=== PATIENT | male | born 1940 | race Caucasian/White ===

== ENCOUNTER 2016-08-14 05:56 | Day surgery (SDC) | payer OTHER ==
[~2016-08-14] VITALS: Ht 182.9 cm; Wt 113.4 kg
[2016-08-14 07:24] VITALS: BP 171/77; PULSE 56; RESP 18; TEMP 98.7; O2SAT 97
[2016-08-14] MEDS ORDERED: AMLO10TA2 PO (07:33)
[2016-08-14] MEDS ORDERED: ZETI10TA5 PO (07:33)
[2016-08-14] MEDS ORDERED: ALLO100T PO (07:33)
[2016-08-14] MEDS ORDERED: HYDR25TA5 PO (07:33)
[2016-08-14] MEDS ORDERED: ZOCO40TA PO (07:33)
[2016-08-14] MEDS ORDERED: METO100T9 PO (07:33)
[2016-08-14] MEDS ORDERED: ASPI81TA11 PO (07:33)
[2016-08-14] MEDS ORDERED: NATT100C PO (07:33)
[2016-08-14] MEDS ORDERED: METF500T PO (07:33)
[2016-08-14] MEDS ORDERED: VALS1TAB70 PO (07:33)
[2016-08-14] MEDS ORDERED: NITROGLYCERIN INJ 5 ML ONE ×2 (08:41→10:17)
[2016-08-14] MEDS ORDERED: MIDAZOLAM HCL 5 MG/5 ML VIAL ONE ×3 (08:41→10:17)
[2016-08-14] MEDS ORDERED: HEPARIN SODIUM - IV 10,000 UNITS/10 ML VIAL ONE ×2 (08:41→10:17)
[2016-08-14] MEDS ORDERED: HEPARIN-NS/PF INJ 500 ML ONE (08:41)
[2016-08-14] MEDS ORDERED: hydrALAZINE HCL 20 MG/ML VIAL ONE (10:41)
[2016-08-14] MEDS ORDERED: SODIUM CHLOR 0.9% 1000 ML INJ 1,000 ML IV SCH (10:52)
[2016-08-14] MEDS ORDERED: PLAV75TA29 PO (10:56)
[2016-08-14] MEDS ORDERED: LORazepam 2 MG/ML VIAL IV PRN (11:00)
[2016-08-14] MEDS ORDERED: ACETAMINOPHEN 325 MG TAB PO PRN (11:00)
[2016-08-14] MEDS ORDERED: ONDANSETRON HCL 4 MG/2 ML VIAL IV PRN (11:00)
[2016-08-14] MEDS ORDERED: ATROPINE SULFATE 1 MG/ML VIAL IV PRN (11:00)
[2016-08-14] MEDS ORDERED: TEMAZEPAM 15 MG CAP PO PRN (11:00)
[2016-08-14] MEDS ORDERED: LIDOCAINE HCL 1% 50 ML VIAL INFIL PRN (11:00)
[2016-08-14] MEDS ORDERED: MISC INFORMATION XX ONE (11:00)
[2016-08-14] MEDS ORDERED: oxyCODONE/ACETAMINOPHEN 5 MG/325 MG TAB PO PRN (11:00)
[2016-08-14] MEDS ORDERED: CLOPIDOGREL 300 MG TAB PO ONE (11:00)
[2016-08-14] MEDS ORDERED: BACITRACIN OINT 0.9 GM PKT TOP ONE (11:00)
[2016-08-14] MEDS ORDERED: MORPHINE SULFATE 4 MG/ML INJ IV PUSH PRN (11:00)
[2016-08-14] MEDS ORDERED: oxyCODONE/ACETAMINOPHEN 10 MG/325 MG TAB PO PRN (11:00)
[2016-08-14] MEDS ORDERED: SODIUM CHLOR 0.9% 250 ML INJ 250 ML IV PRN (11:00)
[2016-08-14] MEDS ORDERED: METOCLOPRAMIDE HCL 10 MG/2 ML VIAL IV PRN (11:00)
[2016-08-14] MEDS ORDERED: CLON0.2T PO (11:18)
[2016-08-14] MEDS ORDERED: cloNIDine HCL 0.2 MG TAB PO PRN (11:30)
[2016-08-14] MEDS ORDERED: hydrALAZINE HCL 20 MG/ML VIAL IV PUSH PRN (11:30)
--- NOTE | 2016-08-14 12:11 | MA ---
cc: LEANDRO EPPS DATE 08/14/2016 PROCEDURES PERFORMED 1. Fluoroscopy with interpretation. 2. Descending aortography. 3. Bilateral lower extremity peripheral angiography with first, second and third order visualization/interpretation. 4. Percutaneous transluminal angioplasty with drug-coated balloon of the right posterior tibial artery. 5. Orbital rotational atherectomy, balloon angioplasty and endovascular stenting of the right superficial femoral artery. 6. Percutaneous endovascular stenting of the right common iliac artery. METHOD The risks, benefits and alternatives were discussed with the patient. The patient understood and consented. PROCEDURE The patient was brought to the Cardiac Catheterization Lab, placed on the catheterization table. The right left groin was prepped and draped in sterile fashion. The left groin was anesthetized with 2% lidocaine. Left common femoral is cannulated and a 5-Turkmen, 11-cm sheath was placed without difficulty. DESCENDING AORTOGRAPHY Descending arteriography was performed anterior-posterior view using a 24 cc contrast injection with good opacification. Descending aortography revealed mild infrarenal descending aortic atherosclerosis. The left renal artery appeared to be patent. The right renal artery has an 80% proximal stenosis. PERIPHERAL ANGIOGRAPHY 1. The right common iliac artery has severe stenosis proximally at 95%. There is a 100 mmHg translational gradient. The right common iliac artery also has mild to moderate diffuse disease. The right external iliac artery is tortuous, has minor luminal irregularities. Right common femoral has minor luminal irregularities. Right profunda appears to be patent. The right superficial femoral artery proximally has some mild to moderate eccentric calcific plaque. The right mid to distal superficial femoral artery has 75% calcific stenosis. There is a discrete stenosis in the distal superficial femoral artery of about 85%. The popliteal artery has minor luminal irregularities. There is primary single-vessel runoff to the right lower extremity. The proximal posterior tibial artery has a 90% discrete stenosis. The peroneal vessel is patent proximally but occluded in the mid-segment. The anterior tibial is occluded proximally. The foot is fed primarily by the posterior tibial as there is little collateralization of the dorsalis pedis. 2. The left common iliac artery has minor luminal irregularities. Left internal iliac artery is occluded. Left external iliac artery has minor luminal irregularities. The left common femoral artery and profunda arteries have minor luminal irregularities. The left superficial femoral artery has mild luminal irregularities in the proximal segment. In the mid segment there is an 80% calcific stenosis. The popliteal artery has minor luminal irregularities. The posterior tibial has 30% proximal stenosis. The peroneal vessel is patent. The anterior tibial is occluded and collateralized distally. PERCUTANEOUS INTERVENTION Omniflex catheter was selectively engaged in the right common iliac artery. A 0.035-inch, 260-cm stiff angle Glidewire was navigated down to the superficial femoral artery. A 6-Turkmen, 45-cm Terumo Destination Morris sheath was advanced up-and-over the arch into the superficial femoral artery. A 0.035-inch Glidewire was navigated behind the Trailblazer catheter into the popliteal artery. Selective distal subtraction angiography confirmed intraluminal placement. The wire was carefully guided down the posterior tibial artery, the Trailblazer catheter behind it and the wire was moved. A 0.014-inch, 335-cm Viper wire was navigated down to the distal posterior tibial artery and the Trailblazer catheter removed. A 4.0 x 40-mm drug-coated Bard balloon was advanced down to the proximal posterior tibial artery and deployed. This is to ensure adequate runoff for anticipated atherectomy of the superficial femoral artery. A 2.0-mm CSI atherectomy catheter was then prepped and advanced up-and-over the arch. Orbital rotational atherectomy of the right superficial femoral artery was performed on four sequential passes through the mid and distal segment. The superficial femoral area was then dilated with a 6.0 x 50-mm Cordis Saber balloon on two sequential inflations. Repeat angiography still showed severe residual stenosis. There was some vessel spasm of the posterior tibial artery which improved with nitroglycerin. A 6.0 x 150-mm Bard drug-coated balloon was then advanced down to the mid-distal superficial femoral artery and deployed. Repeat angiography still showed residual stenosis in the mid-segment. We elected to proceed with endovascular stenting of a 7.0 x 80-mm Bard self-expanding stent which was postdilated with the 6.0 balloon. Repeat angiography showed no significant residual stenosis, JOSÉ LUIS-3 flow. Attention was then directed towards the right common iliac artery. Access was obtained in the right common femoral artery. A 6-Turkmen, 23-cm Brite-Tip sheath was then advanced to the midsegment of the right common iliac artery. The 6-Turkmen, 45-cm Terumo sheath was then pulled back to the left common iliac artery. At this point two wires were in the descending aorta to protect both common iliac arteries. The right common iliac artery was then predilated with an 8.0 x 20-mm Medtronic balloon. Repeat angiography showed some residual stenosis but JOSÉ LUIS-3 flow. A 10.0 x 30-mm balloon expandable stent was then deployed at the proximal right common iliac artery with careful attention paid not to extend it into the aorta and cover the bifurcation. Repeat angiography showed no residual stenosis. There was no further gradient of the right common iliac artery. Both sheaths were then exchanged for 6-Turkmen, 11-cm sheaths, sewn into place to be removed with manual hemostasis. Heparin was administered throughout the entire procedure to maintain appropriate anticoagulation. CONCLUSIONS 1. Mild infrarenal descending aortic atherosclerosis. 2. Severe right renal artery stenosis. 3. Severe right common iliac artery stenosis. 4. Severe bilateral superficial femoral and infrapopliteal stenosis. 5. Successful orbital rotational atherectomy, balloon angioplasty, endovascular stenting of the right superficial femoral artery. 6. Successful percutaneous transluminal angioplasty drug-coated balloon of the right posterior tibial artery. 7. Successful endovascular stenting with balloon expandable stent of the right common iliac artery. PLAN The patient will be initiated on Plavix and continued on aggressive medical therapy. Hopefully this will translate well to symptomatic improvement in the right lower extremity. We will see how he does clinically. After full recovery we will plan for staged left superficial femoral artery intervention. MD NATALYA Manzano/ELIEZER /11:00 AM /11:54 AM
[2016-08-14] MEDS ORDERED: IOHEXOL 350 MG/ML 100 ML BTL (for Cath Lab) OTHER ONE (12:16)
[2016-08-15] MEDS ORDERED: CLOPIDOGREL 75 MG TAB PO SCH (09:00)
[2016-08-15] MEDS ORDERED: ASPIRIN 81 MG CHEW TAB PO SCH (09:00)
== END 2016-08-14 19:42 | disposition home or self-care (01) ==
LOC: HDOC 05:56 → HDIC 05:56 → HDOC 19:42
PROVIDERS: ATTEND Internal Medicine
DX: I70.211 Atherosclerosis of native arteries of extremities with intermittent claudication, right leg (principal); I70.0 Atherosclerosis of aorta; I70.1 Atherosclerosis of renal artery; I10 Essential (primary) hypertension; I25.10 Atherosclerotic heart disease of native coronary artery without angina pectoris; Z95.5 Presence of coronary angioplasty implant and graft; Z79.01 Long term (current) use of anticoagulants
CPT/HCPCS: 37221; 37225; 37228; 75625; 75716; 85002; 85347; 86850; 86900; 86901; C1714; C1725; C1751; C1769; C1876; C1893; C2623; J0360; J1644; J2250; J3010; Q9967

== ENCOUNTER 2017-05-18 11:10 | Emergency (ER) | payer OTHER ==
[~2017-05-18] VITALS: Ht 182.9 cm; Wt 98.5 kg
[~2017-05-18 11:10] MED LIST: ALLO100T PO; AMLO10TA2 PO; ASPI81TA23 PO; CLON0.2T PO; EZET10 PO; HYDR25TA5 PO; METO1TAB43 PO; NATT100C PO; PLAV75TA29 PO; VALS1TAB70 PO; ZOCO40TA PO
[2017-05-18 11:16] VITALS: BP 132/64; PULSE 83; RESP 18; TEMP 98.1; O2SAT 95
[2017-05-18] MEDS ORDERED: SODIUM CHLOR 0.9% 1000 ML INJ 1,000 ML IV SCH (11:21)
[2017-05-18] MEDS ORDERED: SODIUM CHLORIDE 0.9% FLUSH 10 ML FLUSH IV FLUSH PRN (11:30)
--- NOTE | 2017-05-18 11:31 | PD ---
HPI Chief Complaint: altered mental status Time Seen by Provider: 11:12 Travel History International Travel<30 days: No Contact w/Intl Traveler<30days: No Traveled to known affect area: No History of Present Illness HPI The patient is a 76-year-old male who presents to the emergency department via EMS for altered mental status and possible UTI. EMS states the patient recently had a long hospitalization at [facility] where he underwent a CABG and then apparently had a stroke after the CABG. The patient has been at home for last several weeks, was taken an antibiotic for a possible urinary tract infection. EMS states he received a phone call earlier today from the family who requested that the patient come to the emergency department for evaluation of altered mental status. The patient states he does not want to be in the hospital, states that his kids made him come to the hospital. He denies any headache, chest pain, shortness of breath, nausea, vomiting, diarrhea, abdominal pain, or dysuria. He denies any change in mental status, states he has trouble remembering the current date and year because of his prolonged hospitalization. He was able to tell me the correct month, but cannot tell me the year. He denies any complaints. EMS states the patient was afebrile. EMS also states the patient is on oxygen at home, was on 5 L prior to arrival. The patient cannot recall why he takes oxygen. PFSH Past Medical History Cancer: No Chest Pain: No Diabetes: Yes Gastrointestinal Disorders: No Glaucoma: No Hepatitis: No Hiatal Hernia: Yes Hypertension: Yes Integumentary: No Thyroid Disease: No Past Surgical History Narrative Surgical CABG Social History Tobacco Use: No Allergies-Medications (Allergen,Severity, Reaction): Coded Allergies: Sulfa (Sulfonamide Antibiotics) (Unverified Allergy, Severe, 12/30/16) Reported Meds & Prescriptions Reported Meds & Active Scripts Active Reported Famotidine 20 Mg Tab 20 Mg PO DAILY Tamsulosin (Tamsulosin HCl) 0.4 Mg Cap 0.4 Mg PO HS Warfarin 3 Mg Tab 3 Mg PO DAILY Ventolin Hfa 18 GM Inh (Albuterol Sulfate) 90 Mcg/Act Aer 1 Puff INH Q4H PRN Spironolactone 25 Mg Tab 12.5 Mg PO DAILY Basaglar Kwikpen (Insulin Glargine) 100 Unit/Ml Pen 1 Units SQ DAILY Digoxin 0.125 Mg Tab 0.125 Mg PO DAILY Furosemide 40 Mg Tab 40 Mg PO DAILY Cardizem (Diltiazem HCl) 60 Mg Tab 90 Mg PO QID Metoprolol Succinate ER 24 HR (Metoprolol Succinate) 100 Mg Tab 100 Mg PO DAILY Allopurinol 100 Mg Tab 100 Mg PO DAILY Zocor (Simvastatin) 40 Mg Tab 40 Mg PO DAILY Aspirin EC (Aspirin) 81 Mg Tabdr 81 Mg PO DAILY Review of Systems Except as stated in HPI: all other systems reviewed are Neg General / Constitutional: No: Fever, Chills HENT: No: Lightheadedness Cardiovascular: No: Chest Pain or Discomfort Respiratory: No: Shortness of Breath Gastrointestinal: No: Nausea, Vomiting, Diarrhea, Abdominal Pain Genitourinary: No: Dysuria Musculoskeletal: No: Weakness Neurologic: Positive: Change in Mentation Physical Exam Narrative GENERAL: Awake, alert, pleasant 76-year-old male who appears his stated age and is in no acute respiratory distress. SKIN: Focused skin assessment warm/dry. HEAD: Atraumatic. Normocephalic. EYES: Pupils equal and round. No scleral icterus. No injection or drainage. ENT: No nasal bleeding or discharge. Mucous membranes pink and moist. NECK: Trachea midline. No JVD. CARDIOVASCULAR: Regular rate and rhythm. No murmur appreciated. RESPIRATORY: No accessory muscle use. Clear to auscultation. Breath sounds equal bilaterally. GASTROINTESTINAL: Abdomen soft, non-tender, nondistended. No rebound tenderness. Back: Stage II sacral decubitus ulcer. MUSCULOSKELETAL: No obvious deformities. No clubbing. No cyanosis. No edema. NEUROLOGICAL: Awake and alert. No obvious cranial nerve deficits. Motor grossly within normal limits. Normal speech. Patient is oriented to person and month but not the correct year. PSYCHIATRIC: Appropriate mood and affect; insight and judgment normal. Data Data Last Documented VS Vital Signs Date Time Temp Pulse Resp B/P (MAP) Pulse Ox O2 Delivery O2 Flow Rate FiO2 05/18/17 15:00 77 16 142/65 (90) 94 Nasal Cannula 3.00 05/18/17 11:16 98.1 Orders Orders Electrocardiogram (05/18/17 11:21) Complete Blood Count With Diff (05/18/17 11:21) Comprehensive Metabolic Panel (05/18/17 11:21) Creatine Kinase (Cpk) (05/18/17 11:21) Prothrombin Time / Inr (Pt) (05/18/17 11:21) Act Partial Throm Time (Ptt) (05/18/17 11:21) Urinalysis - C+S If Indicated (05/18/17 11:21) Lactic Acid Sepsis Protocol (05/18/17 11:21) Blood Culture (05/18/17 11:21) Chest, Single Ap (05/18/17 11:21) Blood Glucose (05/18/17 11:21) Ecg Monitoring (05/18/17 11:21) Iv Access Insert/Monitor (05/18/17 11:21) Cath For Specimen (05/18/17 11:21) Oximetry (05/18/17 11:21) Sodium Chloride 0.9% Flush (Ns Flush) (05/18/17 11:30) Sodium Chlor 0.9% 1000 Ml Inj (Ns 1000 M (05/18/17 11:21) Influenzae A/B Antigen (05/18/17 11:21) Ct Brain W/O Iv Contrast(Rout) (05/18/17 ) Digoxin (05/18/17 11:59) B-Type Natriuretic Peptide (05/18/17 12:02) Furosemide Inj (Lasix Inj) (05/18/17 12:15) Consult Pt Eval & Treat (05/18/17 13:26) (Hub Use Only)Inp Phy Cons/Ref (05/18/17 ) Ed Discharge Order (05/18/17 16:34) Labs Laboratory Tests Test 05/18/17 11:22 05/18/17 12:10 White Blood Count 12.8 TH/MM3 Red Blood Count 3.55 MIL/MM3 Hemoglobin 8.9 GM/DL Hematocrit 28.2 % Mean Corpuscular Volume 79.4 FL Mean Corpuscular Hemoglobin 25.2 PG Mean Corpuscular Hemoglobin Concent 31.7 % Red Cell Distribution Width 18.9 % Platelet Count 344 TH/MM3 Mean Platelet Volume 7.0 FL Neutrophils (%) (Auto) 56.5 % Lymphocytes (%) (Auto) 29.1 % Monocytes (%) (Auto) 12.0 % Eosinophils (%) (Auto) 2.2 % Basophils (%) (Auto) 0.2 % Neutrophils # (Auto) 7.2 TH/MM3 Lymphocytes # (Auto) 3.7 TH/MM3 Monocytes # (Auto) 1.5 TH/MM3 Eosinophils # (Auto) 0.3 TH/MM3 Basophils # (Auto) 0.0 TH/MM3 CBC Comment DIFF FINAL Differential Comment Prothrombin Time 31.6 SEC Prothromb Time International Ratio 3.1 RATIO Activated Partial Thromboplast Time 50.3 SEC Blood Urea Nitrogen 21 MG/DL Creatinine 2.15 MG/DL Random Glucose 132 MG/DL Total Protein 6.5 GM/DL Albumin 2.4 GM/DL Calcium Level 8.6 MG/DL Alkaline Phosphatase 90 U/L Aspartate Amino Transf (AST/SGOT) 11 U/L Alanine Aminotransferase (ALT/SGPT) 13 U/L Total Bilirubin 0.3 MG/DL Sodium Level 138 MEQ/L Potassium Level 4.4 MEQ/L Chloride Level 102 MEQ/L Carbon Dioxide Level 29.0 MEQ/L Anion Gap 7 MEQ/L Estimat Glomerular Filtration Rate 30 ML/MIN Lactic Acid Level 1.7 mmol/L Total Creatine Kinase 88 U/L B-Type Natriuretic Peptide 314 PG/ML Digoxin Level 1.9 NG/ML Urine Color YELLOW Urine Turbidity CLEAR Urine pH 7.0 Urine Specific [place] 1.011 Urine Protein NEG mg/dL Urine Glucose (UA) NEG mg/dL Urine Ketones NEG mg/dL Urine Occult Blood NEG Urine Nitrite NEG Urine Bilirubin NEG Urine Urobilinogen LESS THAN 2.0 MG/DL Urine Leukocyte Esterase NEG Urine RBC LESS THAN 1 /hpf Urine WBC LESS THAN 1 /hpf Urine Hyaline Casts 4 /lpf Urine Mucus FEW /lpf Microscopic Urinalysis Comment CATH-CULT NOT IND MDM Medical Decision Making Medical Screen Exam Complete: Yes Emergency Medical Condition: Yes Medical Record Reviewed: Yes Interpretation(s) EKG reveals atrial fibrillation with a rate of 82. Intraventricular conduction delay with QRS of 135 ms. Chest x-ray reveals borderline cardiomegaly with diffuse increased interstitial markings concerning for pulmonary venous hypertension or mild edema. Some degree of right pleural effusion also needs to be considered. Laboratory Tests Test 05/18/17 11:22 White Blood Count 12.8 TH/MM3 Red Blood Count 3.55 MIL/MM3 Hemoglobin 8.9 GM/DL Hematocrit 28.2 % Mean Corpuscular Volume 79.4 FL Mean Corpuscular Hemoglobin 25.2 PG Mean Corpuscular Hemoglobin Concent 31.7 % Red Cell Distribution Width 18.9 % Platelet Count 344 TH/MM3 Mean Platelet Volume 7.0 FL Neutrophils (%) (Auto) 56.5 % Lymphocytes (%) (Auto) 29.1 % Monocytes (%) (Auto) 12.0 % Eosinophils (%) (Auto) 2.2 % Basophils (%) (Auto) 0.2 % Neutrophils # (Auto) 7.2 TH/MM3 Lymphocytes # (Auto) 3.7 TH/MM3 Monocytes # (Auto) 1.5 TH/MM3 Eosinophils # (Auto) 0.3 TH/MM3 Basophils # (Auto) 0.0 TH/MM3 CBC Comment DIFF FINAL Differential Comment Prothrombin Time 31.6 SEC Prothromb Time International Ratio 3.1 RATIO Activated Partial Thromboplast Time 50.3 SEC Blood Urea Nitrogen 21 MG/DL Creatinine 2.15 MG/DL Random Glucose 132 MG/DL Total Protein 6.5 GM/DL Albumin 2.4 GM/DL Calcium Level 8.6 MG/DL Alkaline Phosphatase 90 U/L Aspartate Amino Transf (AST/SGOT) 11 U/L Alanine Aminotransferase (ALT/SGPT) 13 U/L Total Bilirubin 0.3 MG/DL Sodium Level 138 MEQ/L Potassium Level 4.4 MEQ/L Chloride Level 102 MEQ/L Carbon Dioxide Level 29.0 MEQ/L Anion Gap 7 MEQ/L Estimat Glomerular Filtration Rate 30 ML/MIN Lactic Acid Level 1.7 mmol/L Total Creatine Kinase 88 U/L Last Impressions Chest X-Ray 05/18/17 1121 Signed Impressions: Service Date/Time: Thursday, May 18, 2017 11:36 - CONCLUSION: Borderline cardiomegaly with diffuse increased interstitial markings concerning for pulmonary venous hypertension or mild edema. Some degree of right pleural effusion also needs to be considered. Mc Shahid MD Head CT 05/18/17 0000 Signed Impressions: Service Date/Time: Thursday, May 18, 2017 13:21 - CONCLUSION: 1. No acute abnormality seen. 2. Age-related atrophy. 3. Small area of encephalomalacia at the left frontal white matter likely from prior infarction. 4. Mild right maxillary and right ethmoid sinus disease. Mc Shahid MD Differential Diagnosis Differential diagnosis includes UTI, delirium, pneumonia, influenza, hyponatremia, dehydration, dementia. Narrative Course IV was established, labs are drawn and sent, and the patient was placed on cardiac telemetry monitoring and continuous pulse oximetry monitoring. EKG was ordered and interpreted. Chest x-ray was obtained. Chest x-ray reveals diffuse increased interstitial markings concerning for pulmonary venous hypertension or mild edema. Creatinine is elevated at 2.15. White count is mildly elevated, patient was afebrile in the emergency department. BNP and digoxin level were added once I looked at the patient's medication list that was brought by his daughter. The daughter is concerned that the patient is not getting the care he needs at home. He was recently discharged home, at home health care coming intermittently, but they have not been there since last week. The patient apparently was hypoxic last night and the brother turned the oxygen level up to 10 L. The patient also apparently fell 3 days ago and was found lying on the ground, unknown length of time. The daughter thinks the patient may benefit from retirement facility in rehabilitation. The patient does live alone, there are no family members there [address] the brain was negative, no subdural hemorrhage. I had a discussion with the daughter who thinks the patient needs retirement facility. I had a discussion with case management who recommends an urgent PTT valve replacement. Therefore, urgent request for PT eval was placed. The human services case manager didn't discussed the possibilities with the daughter and patient at bedside. The daughter does not want the patient to go to in a manner. The daughter would like to go to [facility] and rehabilitation, however, they are apparently out of network. The daughter would like the patient to stay overnight to see if the patient would be a candidate for [facility] tomorrow, [facility] admissions is currently closed secondary to the holiday. Therefore, a call was placed to the on-call [facility] physician for 23 hour observation so case management can evaluate the patient for possible [facility] rehabilitation tomorrow. I discussed the patient with Dr. Castillo who states the patient will not May 23 hour observation criteria, there best option would be to follow- up with [facility] case management tomorrow as well as proximal for possible placement. I will make sure that the daughter and patient have a copy of the physical therapy evaluation at discharge. Physician Communication Physician Communication The on-call [facility] physician was paged for 23 hour observation. Diagnosis Primary Impression: Physical debility Additional Impression: Physical deconditioning Patient Instructions: General Instructions Additional Instructions: Please provide the patient and the daughter a copy of the physical therapy evaluation, CT results, lab results, and x-ray results at discharge. Follow-up with [facility] case management tomorrow morning as well as [facility]. Return if symptoms worsen or progress. Med/Other Pt SpecificInfo: No Change to Meds Disposition: 01 DISCHARGE HOME Condition: Stable Cody Stauffer MD May 18, 2017 11:31
[2017-05-18 11:39] LABS: AUTOMATED NEUTROPHIL # 7.2 TH/MM3 (1.8-7.7); BASOPHIL % 0.2 % (0.0-2.0); EOSINOPHIL # 0.3 TH/MM3 (0-0.4); EOSINOPHIL % 2.2 % (0.0-4.0); HEMATOCRIT 28.2 % (39.0-51.0); HEMOGLOBIN 8.9 GM/DL (13.0-17.0); LYMPH % 29.1 % (9.0-44.0); LYMPHOCYTE # 3.7 TH/MM3 (1.0-4.8); MEAN CELL VOLUME 79.4 FL (80.0-100.0); MEAN CORPUSCULAR HEMOGLOBIN 25.2 PG (27.0-34.0); MEAN CORPUSCULAR HGB CONC 31.7 % (32.0-36.0); MONOCYTE # 1.5 TH/MM3 (0-0.9); NEUT % 56.5 % (16.0-70.0); PLATELET COUNT 344 TH/MM3 (150-450); RED BLOOD COUNT 3.55 MIL/MM3 (4.50-5.90); RED CELL DISTRIBUTION WIDTH 18.9 % (11.6-17.2); WHITE BLOOD COUNT 12.8 TH/MM3 (4.0-11.0)
[2017-05-18 11:49] LABS: INTERNATIONAL NORMALIZED RATIO 3.1 RATIO; PROTHROMBIN TIME - PATIENT 31.6 SEC (9.8-11.6)
[2017-05-18 11:56] LABS: ALBUMIN 2.4 GM/DL (3.4-5.0); ALT (GPT) 13 U/L (12-78); AST (GOT) 11 U/L (15-37); BLOOD UREA NITROGEN 21 MG/DL (7-18); CALCIUM 8.6 MG/DL (8.5-10.1); CHLORIDE 102 MEQ/L (98-107); CREATININE 2.15 MG/DL (0.60-1.30); GLOMERULAR FILTRATION RATE 30 ML/MIN (>89); GLUCOSE,RANDOM 132 MG/DL (74-106); SODIUM (NA) 138 MEQ/L (136-145)
[2017-05-18 11:58] LABS: ALKALINE PHOSPHATASE 90 U/L (45-117); TOTAL BILIRUBIN ADULT 0.3 MG/DL (0.2-1.0); TOTAL PROTEIN 6.5 GM/DL (6.4-8.2)
--- NOTE | 2017-05-18 12:02 | RADRPT ---
EXAM DATE/TIME: 05/18/2017 11:36 [facility] COMPARISON: No previous studies available for comparison. INDICATIONS : Fever. MEDICAL HISTORY : Hypertension. Diabetes mellitus type II. SURGICAL HISTORY : CABG. ENCOUNTER: Initial ACUITY: 1 day PAIN SCORE: 0/10 LOCATION: Bilateral chest FINDINGS: The patient is status post sternotomy. The heart size is borderline enlarged. There is diffuse increa sed interstitial markings. There is linear density at the right midlung which may relate to fluid or thickening of the minor fissure. There are some pleural thickening seen at the lateral aspect of the chest bilaterally. There is minimal blunting of the right costophrenic angle. CONCLUSION: Borderline cardiomegaly with diffuse increased interstitial markings concerning for pulmonary venous hypertension or mild edema. Some degree of right pleural effusion also needs to be considered. Mc Shahid MD on May 18, 2017 at 11:58 Board Certified Radiologist. This report was verified electronically.
[2017-05-18] MEDS ORDERED: FUROSEMIDE 40 MG/4 ML VIAL IV PUSH ONE (12:15)
[2017-05-18 12:24] LABS: BILIRUBIN, URINE NEG (NEG); BLOOD, URINE NEG (NEG); GLUCOSE,URINE NEG (NEG); HYALINE CAST, URINE 4 /lpf (RARE); KETONE, URINE NEG (NEG); MUCUS URINE FEW /lpf (OCC); NITRITE,URINE NEG (NEG); URINE COLOR YELLOW (YELLW/STRAW); URINE LEUKOCYTE ESTERASE NEG (NEG)
[2017-05-18 12:30] VITALS: BP 145/65; PULSE 94; RESP 18; O2SAT 94
[2017-05-18] MEDS ORDERED: FURO40TA PO ×2 (12:59)
[2017-05-18] MEDS ORDERED: DILT60TA33 PO (12:59)
[2017-05-18] MEDS ORDERED: FAMO20TA2 PO (13:02)
[2017-05-18] MEDS ORDERED: SPIR25TA PO (13:02)
[2017-05-18] MEDS ORDERED: TAMS0.4C4 PO (13:02)
[2017-05-18] MEDS ORDERED: WARF-58 PO (13:02)
[2017-05-18] MEDS ORDERED: VENTAER INH (13:02)
[2017-05-18] MEDS ORDERED: DIGO0.12 PO (13:02)
[2017-05-18] MEDS ORDERED: INSU1INJ18 SQ (13:02)
--- NOTE | 2017-05-18 13:40 | RADRPT ---
EXAM DATE/TIME: 05/18/2017 13:21 [facility] COMPARISON: No previous studies available for comparison. INDICATIONS : Altered mental status. RADIATION DOSE: 37.94 CTDIvol (mGy) MEDICAL HISTORY : Cardiovascular disease. Cerebrovascular disease. Hypertension.A-fib, diabetic SURGICAL HISTORY : None. ENCOUNTER: Initial ACUITY: 1 day PAIN SCALE: 0/10 LOCATION: cranial TECHNIQUE: Multiple contiguous axial images were obtained of the head. Using automated exposure control and adj ustment of the mA and/or kV according to patient size, radiation dose was kept as low as reasonably a chievable to obtain optimal diagnostic quality images. DICOM format image data is available electro nically for review and comparison. FINDINGS: CEREBRUM: The ventricles and cortical sulci are widened. There is a small area of encephalomalacia at the left frontal white matter. No evidence of midline shift, mass lesion, hemorrhage or acute infarction. No extra-axial fluid collections are seen. POSTERIOR FOSSA: The cerebellum and brainstem are intact. The 4th ventricle is midline. The cerebellopontine angle i s unremarkable. EXTRACRANIAL: The visualized portion of the orbits is intact. There is mild focal mucosal disease at the inferior l ateral right maxillary sinus and a few posterior right ethmoid air cells. SKULL: The calvaria is intact. No evidence of skull fracture. CONCLUSION: 1. No acute abnormality seen. 2. Age-related atrophy. 3. Small area of encephalomalacia at the left frontal white matter likely from prior infarction. 4. Mild right maxillary and right ethmoid sinus disease. Mc Shahid MD on May 18, 2017 at 13:36 Board Certified Radiologist. This report was verified electronically.
[2017-05-18 15:00] VITALS: BP 142/65; PULSE 77; RESP 16; O2SAT 94
[2017-05-18 18:20] VITALS: BP 139/70
--- NOTE | 2017-05-19 16:49 | EKG ---
Date Performed: 05/18/2017 Time Performed: 11:28:01 PTAGE: 76 years EKG: ATRIAL FIBRILLATION INTRAVENTRICULAR CONDUCTION DELAY POSSIBLE LEFT VENTRICULAR HYPERTROPHY ABNORMAL ECG INTERPRETATION BASED ON A DEFAULT AGE OF 40 YEARS NO PREVIOUS TRACING DOCTOR: Grayson Mendieta Interpretating Date/Time 05/19/2017 16:49:29
== END 2017-05-18 18:48 | disposition home or self-care (01) ==
LOC: NEPC 11:10
DX: R53.81 Other malaise (principal); R41.82 Altered mental status, unspecified; E11.9 Type 2 diabetes mellitus without complications; I10 Essential (primary) hypertension; I48.91 Unspecified atrial fibrillation
CPT/HCPCS: 70450; 71045; 80053; 80162; 81001; 82550; 83605; 83880; 85025; 85610; 85730; 87040; 87804; 93005; 96374; 97162; 99285; G8987; G8988; J1940; J7030

== ENCOUNTER 2017-05-20 16:42 | Inpatient (IN) | payer OTHER ==
[~2017-05-20] VITALS: Ht 185.4 cm; Wt 91.6 kg
[~2017-05-20 16:42] MED LIST changes: -AMLO10TA2 PO; -CLON0.2T PO; +DIGO0.12 PO; +DILT60TA33 PO; -EZET10 PO; +FAMO20TA2 PO; +FURO40TA PO; -HYDR25TA5 PO; +INSU1INJ18 SQ; -NATT100C PO; -PLAV75TA29 PO; +SPIR25TA PO; +TAMS0.4C4 PO; -VALS1TAB70 PO; +VENTAER INH; +WARF-58 PO
[2017-05-20 16:46] VITALS: BP 147/67; PULSE 98; RESP 20; TEMP 97.9; O2SAT 87
[2017-05-20] MEDS ORDERED: CIPR-9 PO (17:18)
[2017-05-20] MEDS ORDERED: FUROSEMIDE 40 MG/4 ML VIAL IV PUSH ONE (18:00)
--- NOTE | 2017-05-20 18:29 | RADRPT ---
EXAM DATE/TIME: 05/20/2017 17:58 [facility] COMPARISON: CHEST SINGLE AP, May 18, 2017, 11:36. INDICATIONS : Shortness of breath after fall today. MEDICAL HISTORY : Hypertension. Diabetes mellitus type II. SURGICAL HISTORY : CABG. ENCOUNTER: Initial ACUITY: 1 day PAIN SCORE: 0/10 LOCATION: Bilateral chest FINDINGS: There is slight cardiomegaly and perivascular pulmonary edema. Focal consolidation is not seen. There is evidence for prior median sternotomy. CONCLUSION: Slight CHF. K. Juan Miguel Eckert MD on May 20, 2017 at 18:26 Board Certified Radiologist. This report was verified electronically.
[2017-05-20 18:47] LABS: AUTOMATED NEUTROPHIL # 10.4 TH/MM3 (1.8-7.7); BASOPHIL # 0.1 TH/MM3 (0-0.2); BASOPHIL % 0.6 % (0.0-2.0); EOSINOPHIL # 0.1 TH/MM3 (0-0.4); EOSINOPHIL % 0.6 % (0.0-4.0); HEMATOCRIT 29.1 % (39.0-51.0); HEMOGLOBIN 9.2 GM/DL (13.0-17.0); LYMPH % 31.6 % (9.0-44.0); LYMPHOCYTE # 6.1 TH/MM3 (1.0-4.8); MEAN CELL VOLUME 78.8 FL (80.0-100.0); MEAN CORPUSCULAR HGB CONC 31.8 % (32.0-36.0); MEAN PLATELET VOLUME 7.4 FL (7.0-11.0); MONO % 12.6 % (0.0-8.0); MONOCYTE # 2.4 TH/MM3 (0-0.9); NEUT % 54.6 % (16.0-70.0); PLATELET COUNT 432 TH/MM3 (150-450); RED BLOOD COUNT 3.69 MIL/MM3 (4.50-5.90); RED CELL DISTRIBUTION WIDTH 19.1 % (11.6-17.2); WHITE BLOOD COUNT 19.1 TH/MM3 (4.0-11.0)
--- NOTE | 2017-05-20 18:49 | PD ---
HPI Chief Complaint: General Weakness Time Seen by Provider: 17:07 Travel History International Travel<30 days: No Contact w/Intl Traveler<30days: No Traveled to known affect area: No History of Present Illness HPI 76-year-old man who presents to the emergency department complaining of increasing lower extremity edema, weakness, and falls. He had a CABG done on February 25 emergently. Hip prolonged hospital stay and has had significant debility since then. He's been home for the past week or 2. He's had increased weakness, lower extremity edema, frequent falls. He is in the ED. Family is been working with this housing case manager 4 to healthcare to go back into [facility]. He's had several falls or past couple days, is unable to walk now, and so his family brought him to the emergency department today. Does complain of some shortness of breath. No fevers or chills. No chest pain. No other complaints. History Past Medical History Narrative Medical CAD, history of CABG Hypertension Diabetes A. fib, on warfarin Social History Alcohol Use: No Tobacco Use: No Allergies-Medications (Allergen,Severity, Reaction): Coded Allergies: Sulfa (Sulfonamide Antibiotics) (Unverified Allergy, Severe, 12/30/16) Reported Meds & Prescriptions Reported Meds & Active Scripts Active Reported Cipro (Ciprofloxacin HCl) 500 Mg Tab 500 Mg PO BID Famotidine 20 Mg Tab 20 Mg PO DAILY Tamsulosin (Tamsulosin HCl) 0.4 Mg Cap 0.4 Mg PO HS Warfarin 3 Mg Tab 3 Mg PO DAILY Ventolin Hfa 18 GM Inh (Albuterol Sulfate) 90 Mcg/Act Aer 1 Puff INH Q4H PRN Spironolactone 25 Mg Tab 12.5 Mg PO DAILY Basaglar Kwikpen (Insulin Glargine) 100 Unit/Ml Pen 1 Units SQ DAILY Digoxin 0.125 Mg Tab 0.125 Mg PO DAILY Furosemide 40 Mg Tab 40 Mg PO DAILY Cardizem (Diltiazem HCl) 60 Mg Tab 90 Mg PO QID Metoprolol Succinate ER 24 HR (Metoprolol Succinate) 100 Mg Tab 50 Mg PO DAILY Allopurinol 100 Mg Tab 100 Mg PO DAILY Zocor (Simvastatin) 40 Mg Tab 40 Mg PO DAILY Aspirin EC (Aspirin) 81 Mg Tabdr 81 Mg PO DAILY Review of Systems Except as stated in HPI: all other systems reviewed are Neg Physical Exam Narrative GENERAL: Well-appearing 76-year-old man, little bit generally debilitated, nontoxic. SKIN: Focused skin assessment warm/dry. HEAD: Atraumatic. Normocephalic. EYES: Pupils equal and round. No scleral icterus. No injection or drainage. ENT: No nasal bleeding or discharge. Mucous membranes pink and moist. NECK: Trachea midline. No JVD. CARDIOVASCULAR: Regular rate and rhythm. No murmur appreciated. RESPIRATORY: Coarse breath sounds with some rhonchi in the bases. GASTROINTESTINAL: Abdomen soft, non-tender, nondistended. Hepatic and splenic margins not palpable. MUSCULOSKELETAL: No obvious deformities. Pitting edema bilateral lower extremity. NEUROLOGICAL: Awake and alert. No obvious cranial nerve deficits. Motor grossly within normal limits. Normal speech. PSYCHIATRIC: Appropriate mood and affect; insight and judgment normal. Data Data Last Documented VS Vital Signs Date Time Temp Pulse Resp B/P (MAP) Pulse Ox O2 Delivery O2 Flow Rate FiO2 05/20/17 16:46 97.9 98 20 147/67 (93) 87 Nasal Cannula 3.00 Orders Orders Complete Blood Count With Diff (05/20/17 17:47) Comprehensive Metabolic Panel (05/20/17 17:47) Act Partial Throm Time (Ptt) (05/20/17 17:47) Prothrombin Time / Inr (Pt) (05/20/17 17:47) Magnesium (Mg) (05/20/17 17:47) B-Type Natriuretic Peptide (05/20/17 17:47) Iv Access Insert/Monitor (05/20/17 17:47) Chest, Single Ap (05/20/17 ) Furosemide Inj (Lasix Inj) (05/20/17 18:00) Labs Laboratory Tests Test 05/20/17 18:00 [facility] Medical Decision Making Medical Screen Exam Complete: Yes Emergency Medical Condition: Yes Interpretation(s) My review of EKG: A. fib, wide QRS, impressive ST changes across the anterior precordium, T wave inversions and depressions laterally, compared to previous EKG from May 18, is no significant change. Differential Diagnosis CHF exacerbation, volume overload, electrolyte abnormality, infection, weakness , debility, other Narrative Course Medical decision making 76 old man, 4 to healthcare patient, her worsening weakness to debility, volume overload symptoms. Chest x-ray is a little bit wet. EKG is impressive, but unchanged from baseline. I don't think it represents ischemia. We'll check labs, x-ray, likely admission. Adolfo Fisher MD May 20, 2017 18:49
[2017-05-20 18:55] LABS: INTERNATIONAL NORMALIZED RATIO 2.5 RATIO; PROTHROMBIN TIME - PATIENT 24.9 SEC (9.8-11.6)
[2017-05-20 19:03] LABS: ALBUMIN 2.8 GM/DL (3.4-5.0); AST (GOT) 19 U/L (15-37); BICARBONATE 27.3 MEQ/L (21.0-32.0); BLOOD UREA NITROGEN 27 MG/DL (7-18); CALCIUM 9.1 MG/DL (8.5-10.1); CHLORIDE 97 MEQ/L (98-107); CREATININE 2.63 MG/DL (0.60-1.30); GLOMERULAR FILTRATION RATE 24 ML/MIN (>89); GLUCOSE,RANDOM 120 MG/DL (74-106); MAGNESIUM 2.3 MG/DL (1.5-2.5); SODIUM (NA) 134 MEQ/L (136-145)
[2017-05-20 19:06] LABS: ALKALINE PHOSPHATASE 89 U/L (45-117); ALT (GPT) 16 U/L (12-78); TOTAL BILIRUBIN ADULT 0.3 MG/DL (0.2-1.0); TOTAL PROTEIN 7.3 GM/DL (6.4-8.2)
[2017-05-20 19:31] VITALS: BP 135/60; PULSE 103; RESP 18; O2SAT 98
[2017-05-20 19:50] LABS: BASOPHILS 1 % (0-2); LYMPHOCYTES 28 % (9-44); MONOCYTES 5 % (0-8); POLYS (SEG NEUTROPHILS) 63 % (16-70)
[2017-05-20 19:51] LABS: OVALOCYTES 1+ (NORMAL); TEARDROP RBCS 1+ (NORMAL)
[2017-05-20] MEDS ORDERED: SODIUM CHLORIDE 0.9% FLUSH 10 ML FLUSH IV FLUSH PRN (20:00)
[2017-05-20] MEDS ORDERED: BISACODYL 10 MG SUPP RECTAL PRN (20:00)
[2017-05-20] MEDS ORDERED: LACTULOSE SYRUP 20 GM/30 ML CUP PO PRN (20:00)
[2017-05-20] MEDS ORDERED: ALBUTEROL SULFATE 90 MCG/ACT HFA 8 GM INHALER INH PRN (20:00)
[2017-05-20] MEDS ORDERED: NALOXONE HCL 0.4 MG/ML AMP IV PUSH PRN (20:00)
[2017-05-20] MEDS ORDERED: SENNOSIDES 8.6 MG TAB PO PRN (20:00)
[2017-05-20] MEDS ORDERED: MAGNESIUM HYDROXIDE SUSP 30 ML CUP PO PRN (20:00)
--- NOTE | 2017-05-20 20:08 | HHI.HP ---
HPI Service [facility] Hospitalists Primary Care Physician Ar Vivar DO Admission Diagnosis CHF exacerbation Chief Complaint: increasing lower extremity edema ,confusion and inability to ambulate worse over last several days Travel History International Travel<30 Days: No Contact w/Intl Traveler <30 Da: No Traveled to Known Affected Are: No History of Present Illness 76-year-old man who presents to the emergency department complaining of increasing lower extremity edema, weakness, and falls. He had a CABG done on February 25 emergently. Had prolonged hospital stay and has had significant debility since then. He's been home for the past week or 2. He's had increased weakness, lower extremity edema, frequent falls and has had significant confusion calling out names of people. He is in the ED. Family is been working with this residential case manager 4 to healthcare to go back into [facility]. He's had several falls or past couple days, is unable to walk now, and so his family brought him to the emergency department today. Does complain of some shortness of breath. No fevers or chills. No chest pain. No other complaints. Patient unable to stand upright without falling . Patient was to go to [facility] ,but now has the confusion problems. Review of Systems ROS Limitations: Altered Mental Status Respiratory: COMPLAINS OF: Shortness of breath Cardiovascular: COMPLAINS OF: Dyspnea on Exertion, Lower Extremity Edema Neurologic: COMPLAINS OF: Abnormal gait Past Family Social History Past Medical History hypertension,cva,chf,cad s/p cabg 03/03 a fib,dm ckd Past Surgical History cabs Reported Medications Famotidine 20 Mg Tab 20 Mg PO DAILY Tamsulosin (Tamsulosin HCl) 0.4 Mg Cap 0.4 Mg PO HS Warfarin 3 Mg Tab 3 Mg PO DAILY Ventolin Hfa 18 GM Inh (Albuterol Sulfate) 90 Mcg/Act Aer 1 Puff INH Q4H PRN Spironolactone 25 Mg Tab 12.5 Mg PO DAILY Basaglar Kwikpen (Insulin Glargine) 100 Unit/Ml Pen 1 Units SQ DAILY Digoxin 0.125 Mg Tab 0.125 Mg PO DAILY Furosemide 40 Mg Tab 40 Mg PO DAILY Cardizem (Diltiazem HCl) 60 Mg Tab 90 Mg PO QID Metoprolol Succinate ER 24 HR (Metoprolol Succinate) 100 Mg Tab 50 Mg PO DAILY Allopurinol 100 Mg Tab 100 Mg PO DAILY Zocor (Simvastatin) 40 Mg Tab 40 Mg PO DAILY Aspirin EC (Aspirin) 81 Mg Tabdr 81 Mg PO DAILY Allergies: Coded Allergies: Sulfa (Sulfonamide Antibiotics) (Unverified Allergy, Severe, 12/30/16) Social History NS,ND Physical Exam Vital Signs Vital Signs Date Time Temp Pulse Resp B/P (MAP) Pulse Ox O2 Delivery O2 Flow Rate FiO2 05/20/17 19:31 103 18 135/60 (85) 98 Nasal Cannula 2.00 05/20/17 16:46 97.9 98 20 147/67 (93) 87 Nasal Cannula 3.00 Physical Exam GENERAL: This is a well-nourished, well-developed patient, in no apparent distress. SKIN: No rashes, ecchymoses or lesions. Cool and dry. HEAD: Atraumatic. Normocephalic. No temporal or scalp tenderness. EYES: Pupils equal round and reactive. Extraocular motions intact. No scleral icterus. No injection or drainage. ENT: Nose without bleeding, purulent drainage or septal hematoma. Throat without erythema, tonsillar hypertrophy or exudate. Uvula midline. Airway patent. NECK: Trachea midline. No JVD or lymphadenopathy. Supple, nontender, no meningeal signs. CARDIOVASCULAR: irreg rhythm RESPIRATORY: rhonchi bilateral bases GASTROINTESTINAL: Abdomen soft, non-tender, nondistended. No hepato-splenomegaly , or palpable masses. No guarding. MUSCULOSKELETAL: Extremities with plus 2 edema. No joint tenderness, effusion, . No calf tenderness. Negative Homans sign bilaterally. fell on rt foot some swelling NEUROLOGICAL: Awake and alert. Cranial nerves II through XII intact. Motor and sensory grossly within normal limits. Five out of 5 muscle strength in all muscle groups. Normal speech. Inability to stand Laboratory Laboratory Tests Test 05/20/17 18:00 White Blood Count 19.1 Red Blood Count 3.69 Hemoglobin 9.2 Hematocrit 29.1 Mean Corpuscular Volume 78.8 Mean Corpuscular Hemoglobin 25.0 Mean Corpuscular Hemoglobin Concent 31.8 Red Cell Distribution Width 19.1 Platelet Count 432 Mean Platelet Volume 7.4 Neutrophils (%) (Auto) 54.6 Lymphocytes (%) (Auto) 31.6 Monocytes (%) (Auto) 12.6 Eosinophils (%) (Auto) 0.6 Basophils (%) (Auto) 0.6 Neutrophils # (Auto) 10.4 Lymphocytes # (Auto) 6.1 Monocytes # (Auto) 2.4 Eosinophils # (Auto) 0.1 Basophils # (Auto) 0.1 CBC Comment AUTO DIFF Differential Total Cells Counted 100 Neutrophils % (Manual) 63 Lymphocytes % 28 Monocytes % 5 Eosinophils % 3 Basophils % 1 Neutrophils # (Manual) 12.0 Differential Comment FINAL DIFF MANUAL Atypical Lymphocytes Platelet Estimate NORMAL Platelet Morphology Comment NORMAL Tear Drop Cells 1+ Ovalocytes 1+ Prothrombin Time 24.9 Prothromb Time International Ratio 2.5 Activated Partial Thromboplast Time 50.6 Blood Urea Nitrogen 27 Creatinine 2.63 Random Glucose 120 Total Protein 7.3 Albumin 2.8 Calcium Level 9.1 Magnesium Level 2.3 Alkaline Phosphatase 89 Aspartate Amino Transf (AST/SGOT) 19 Alanine Aminotransferase (ALT/SGPT) 16 Total Bilirubin 0.3 Sodium Level 134 Potassium Level 4.8 Chloride Level 97 Carbon Dioxide Level 27.3 Anion Gap 10 Estimat Glomerular Filtration Rate 24 Result Diagram: 05/20/17 1800 05/20/17 1800 Imaging Last 24 hours Impressions Chest X-Ray 05/20/17 0000 Signed Impressions: Service Date/Time: Saturday, May 20, 2017 17:58 - CONCLUSION: Slight CHF. K. Juan Miguel Eckert MD Course in er given lasix IV Caprini VTE Risk Assessment Caprini VTE Risk Assessment: Mod/High Risk (score >= 2) Caprini Risk Assessment Model Point Value = 1 Point Value = 2 Point Value = 3 Point Value = 5 Age 41-60 Minor surgery BMI > 25 kg/m2 Swollen legs Varicose veins or History of unexplained or recurrent spontaneous Oral contraceptives or hormone replacement Sepsis (< 1 month) Serious lung disease, including pneumonia (< 1 month) Abnormal pulmonary function Acute myocardial infarction Congestive heart failure (< 1 month) History of inflammatory bowel disease Medical patient at bed rest Age 61-74 Arthroscopic surgery Major open surgery (> 45 min) Laparoscopic surgery (> 45 min) Malignancy Confined to bed (> 72 hours) Immobilizing plaster cast Central venous access Age >= 75 History of VTE Family history of VTE Factor V Leiden Prothrombin [id number] Lupus anticoagulant Anticardiolipin antibodies Elevated serum homocysteine Heparin-induced thrombocytopenia Other congenital or acquired thrombophilia Stroke (< 1 month) Elective arthroplasty Hip, pelvis, or leg fracture Acute spinal cord injury (< 1 month) Prophylaxis Regimen Total Risk Factor Score Risk Level Prophylaxis Regimen 0-1 Low Early ambulation 2 Moderate Order ONE of the following: *Sequential Compression Device (SCD) *Heparin 5000 units SQ BID 3-4 Higher Order ONE of the following medications: *Heparin 5000 units SQ TID *Enoxaparin/Lovenox 40 mg SQ daily (WT < 150 kg, CrCl > 30 mL/min) *Enoxaparin/Lovenox 30 mg SQ daily (WT < 150 kg, CrCl > 10-29 mL/min) *Enoxaparin/Lovenox 30 mg SQ BID (WT < 150 kg, CrCl > 30 mL/min) AND/OR *Sequential Compression Device (SCD) 5 or more Highest Order ONE of the following medications: *Heparin 5000 units SQ TID (Preferred with Epidurals) *Enoxaparin/Lovenox 40 mg SQ daily (WT < 150 kg, CrCl > 30 mL/min) *Enoxaparin/Lovenox 30 mg SQ daily (WT < 150 kg, CrCl > 10-29 mL/min) *Enoxaparin/Lovenox 30 mg SQ BID (WT < 150 kg, CrCl > 30 mL/min) AND *Sequential Compression Device (SCD) Assessment and Plan Problem List: (1) CHF (congestive heart failure) ICD Codes: I50.9 - Heart failure, unspecified Plan: patient with renal insufficency will give lasix 20mg iv in am and continue his home medications (2) Edema ICD Codes: R60.9 - Edema, unspecified Plan: as above continue current medications (3) Gait difficulty ICD Codes: R26.9 - Unspecified abnormalities of gait and mobility Status: Acute Plan: worse over last several days will get MRI (4) Change in mental status ICD Codes: R41.82 - Altered mental status, unspecified Plan: discussed with family will get MRI (5) Right foot pain ICD Codes: M79.671 - Pain in right foot Plan: will xray rt foot (6) Leukocytosis ICD Codes: D72.829 - Elevated white blood cell count, unspecified Plan: no sorce patient recently may have had uti will obtain blood and urine culture follow lab Assessment and Plan further plan as case develops Code Status full Discussed Condition With patient Physician Certification 2 Midnight Certification Type: Admission for Inpatient Services Order for Inpatient Services The services are ordered in accordance with Medicare regulations or non- Medicare payer requirements, as applicable. In the case of services not specified as inpatient-only, they are appropriately provided as inpatient services in accordance with the 2-midnight benchmark. Estimated LOS (days): 3 3 days is the estimated time the patient will need to remain in the hospital, assuming treatment plan goals are met and no additional complications. Post-Hospital Plan: [facility] Rajesh Duggan MD May 20, 2017 20:08
[2017-05-20] MEDS ORDERED: PILL SPLITTER OTHER PRN (20:15)
--- NOTE | 2017-05-20 20:48 | RADRPT ---
EXAM DATE/TIME: 05/20/2017 20:21 [facility] COMPARISON: No previous studies available for comparison. INDICATIONS : Right foot pain and swelling post fall. MEDICAL HISTORY : None. SURGICAL HISTORY : None. ENCOUNTER: Initial ACUITY: 1 day PAIN SCORE: 8/10 LOCATION: Right foot. FINDINGS: No definite fractures, or dislocations are identified. No definite lytic or sclerotic lesion is seen . There are degenerative changes within multiple joints mainly the interphalangeal joints and the fir st metatarsophalangeal joint. Calcaneal spurs are present at the attachment site of the plantar apone urosis and Achilles tendon. CONCLUSION: Chronic changes and no evidence for acute fracture. Rubi Eckert MD on May 20, 2017 at 20:45 Board Certified Radiologist. This report was verified electronically.
--- NOTE | 2017-05-20 20:49 | RADRPT ---
EXAM DATE/TIME: 05/20/2017 20:32 [facility] COMPARISON: No previous studies available for comparison. INDICATIONS : Right wrist pain post fall. MEDICAL HISTORY : None. SURGICAL HISTORY : None. ENCOUNTER: Initial ACUITY: 1 week PAIN SCORE: 6/10 LOCATION: Right wrist. FINDINGS: No definite fractures, dislocations, lytic, or sclerotic lesions are seen. There is a small 3 mm radi opaque metallic density in the soft tissues in the hyperthenar location. Slight hypertrophic changes present involving the radioscaphoid joint and scaphoid is slightly irregular possibly due to old trau ma. CONCLUSION: Chronic changes and no evidence for acute fracture. Rubi Eckert MD on May 20, 2017 at 20:46 Board Certified Radiologist. This report was verified electronically.
[2017-05-20] MEDS: SODIUM CHLORIDE 0.9% FLUSH 10 ML FLUSH IV FLUSH SCH (20:51)
[2017-05-20 21:24] VITALS: PULSE 87
[2017-05-20] MEDS: DILTIAZEM HCL 60 MG TAB PO SCH (22:38)
[2017-05-20] MEDS: DOCUSATE SODIUM 50 MG/SENNA 8.6 MG TAB PO SCH (22:38)
[2017-05-20] MEDS: TAMSULOSIN HCL 0.4 MG CAP PO SCH (22:39)
[2017-05-21] VITALS (11 sets, daily range): BP systolic 126–149; BP diastolic 58–73; PULSE 74–102; RESP 18–20; TEMP 97.9–102.7; O2SAT 95–98
[2017-05-21 08:54] LABS: AUTOMATED NEUTROPHIL # 6.5 TH/MM3 (1.8-7.7); BASOPHIL # 0.1 TH/MM3 (0-0.2); BASOPHIL % 0.7 % (0.0-2.0); EOSINOPHIL # 0.3 TH/MM3 (0-0.4); EOSINOPHIL % 2.4 % (0.0-4.0); HEMATOCRIT 23.1 % (39.0-51.0); HEMOGLOBIN 7.5 GM/DL (13.0-17.0); LYMPH % 32.9 % (9.0-44.0); LYMPHOCYTE # 4.2 TH/MM3 (1.0-4.8); MEAN CELL VOLUME 78.2 FL (80.0-100.0); MEAN CORPUSCULAR HEMOGLOBIN 25.3 PG (27.0-34.0); MEAN CORPUSCULAR HGB CONC 32.4 % (32.0-36.0); MEAN PLATELET VOLUME 7.2 FL (7.0-11.0); MONO % 13.1 % (0.0-8.0); MONOCYTE # 1.7 TH/MM3 (0-0.9); NEUT % 50.9 % (16.0-70.0); PLATELET COUNT 382 TH/MM3 (150-450); RED BLOOD COUNT 2.95 MIL/MM3 (4.50-5.90); RED CELL DISTRIBUTION WIDTH 18.8 % (11.6-17.2); WHITE BLOOD COUNT 12.8 TH/MM3 (4.0-11.0)
[2017-05-21] MEDS ORDERED: INSULIN DETEMIR 100 UNITS/ML VIAL SQ SCH (09:00)
[2017-05-21] MEDS ORDERED: FUROSEMIDE 20 MG/2 ML VIAL IV PUSH ONE ×2 (09:00→23:45)
[2017-05-21 09:17] LABS: ALBUMIN 2.5 GM/DL (3.4-5.0); ALKALINE PHOSPHATASE 77 U/L (45-117); ALT (GPT) 12 U/L (12-78); AST (GOT) 12 U/L (15-37); BICARBONATE 29.2 MEQ/L (21.0-32.0); BLOOD UREA NITROGEN 27 MG/DL (7-18); CALCIUM 8.8 MG/DL (8.5-10.1); CHLORIDE 98 MEQ/L (98-107); CREATININE 2.67 MG/DL (0.60-1.30); GLOMERULAR FILTRATION RATE 24 ML/MIN (>89); GLUCOSE,RANDOM 109 MG/DL (74-106); SODIUM (NA) 135 MEQ/L (136-145); TOTAL BILIRUBIN ADULT 0.3 MG/DL (0.2-1.0); TOTAL PROTEIN 6.6 GM/DL (6.4-8.2)
[2017-05-21] MEDS: ASPIRIN EC 81 MG TABEC PO SCH (09:35)
[2017-05-21] MEDS: DILTIAZEM HCL 60 MG TAB PO SCH ×4 (09:35→20:44)
[2017-05-21] MEDS: ALLOPURINOL 100 MG TAB PO SCH (09:35)
[2017-05-21] MEDS: METOPROLOL SUCCINATE 50 MG EXTENDED RELEASE TAB PO SCH (09:35)
[2017-05-21] MEDS: SODIUM CHLORIDE 0.9% FLUSH 10 ML FLUSH IV FLUSH SCH ×2 (09:35→20:44)
[2017-05-21] MEDS: FAMOTIDINE 20 MG TAB PO SCH (09:35)
[2017-05-21] MEDS: DIGOXIN 0.125 MG TAB PO SCH (09:36)
[2017-05-21] MEDS: PRAVASTATIN SOD 80 MG TAB PO SCH (09:36)
[2017-05-21] MEDS: DOCUSATE SODIUM 50 MG/SENNA 8.6 MG TAB PO SCH ×2 (09:36→20:44)
[2017-05-21] MEDS: SPIRONOLACTONE 25 MG TAB PO SCH (09:36)
--- NOTE | 2017-05-21 09:45 | RADRPT ---
EXAM DATE/TIME: 05/21/2017 08:55 [facility] COMPARISON: No previous studies available for comparison. INDICATIONS : Garbled speech with right sided weakness. MEDICAL HISTORY : Stroke Hypertension. Diabetes mellitus type 2. LA, Afib SURGICAL HISTORY : CABG ENCOUNTER: Subsequent ACUITY: 2 day PAIN SCORE: 0/10 LOCATION: cranial TECHNIQUE: Multiplanar, multisequence MRI of the brain was performed without contrast. FINDINGS: MRI of the brain is performed in sagittal, axial and coronal planes. The craniocervical junction and midline structures are unremarkable. Diffusion weighted images demonstrate no abnormality. There is n o evidence of acute cortical infarction, acute hemorrhage, mass effect or midline shift is seen. Old left occipital infarct is present. Posterior fossa structures are unremarkable. CONCLUSION: 1. No evidence of acute intracranial pathology. No masses are identified. 2. Old left occipital infarct Huy Wright MD on May 21, 2017 at 9:41 Board Certified Radiologist. This report was verified electronically.
[2017-05-21] MEDS: ACETAMINOPHEN 325 MG TAB PO PRN (12:56)
[2017-05-21 13:11] LABS: IRON (FE) 14 MCG/DL (65-175); TOTAL IRON BINDING CAPACITY 235 MCG/DL (250-450)
[2017-05-21] MEDS ORDERED: WARFARIN SOD 3 MG TAB PO SCH (16:00)
[2017-05-21] MEDS: TAMSULOSIN HCL 0.4 MG CAP PO SCH (20:44)
--- NOTE | 2017-05-21 23:23 | HHI.PR ---
Subjective Remarks Pt c/o some LE edema at home. Pt denies difficulties with SOB. Pt c/o progressive weakness at home over last several weeks, months? - unclear. Pt had CABG Feb 2017 Pt states that he has been having difficulties with recurrent falls at home and then progressive weakness. Pt c/o pain at right foot and right ankle. Objective Vitals Vital Signs Date Time Temp Pulse Resp B/P (MAP) Pulse Ox O2 Delivery O2 Flow Rate FiO2 05/21/17 22:28 95 Nasal Cannula 4.00 05/21/17 16:00 98.8 86 20 128/58 (81) 95 05/21/17 14:13 99.7 05/21/17 12:00 102 05/21/17 12:00 Nasal Cannula 4.00 05/21/17 12:00 102.7 102 20 149/70 (96) 97 05/21/17 08:45 Nasal Cannula 4.00 05/21/17 08:45 Nasal Cannula 4.00 05/21/17 08:00 100 05/21/17 08:00 98.5 96 20 138/63 (88) 97 05/21/17 07:02 97.9 90 18 130/73 (92) 96 05/21/17 04:00 91 05/21/17 04:00 Bi-Pap 4.00 05/21/17 00:33 98.4 94 18 139/61 (87) 96 05/21/17 00:00 Bi-Pap 4.00 05/21/17 00:00 85 05/21/17 00:00 96 OWN BIPAP 4.00 05/21/17 05/21/17 05/22/17 15:00 23:00 07:00 Intake Total 720 ml Output Total 1000 ml Balance -1000 ml 720 ml Intake Oral 720 ml Output Urine Total 1000 ml # Voids 1 # Bowel Movements 0 Result Diagram: 05/21/17 0703 05/21/17 0703 Imaging Last Impressions Brain MRI 05/21/17 0000 Signed Impressions: Service Date/Time: May 08:55 - CONCLUSION: 1. No evidence of acute intracranial pathology. No masses are identified. 2. Old left occipital infarct Huy Wright MD Wrist X-Ray 05/20/17 0000 Signed Impressions: Service Date/Time: Saturday, May 20, 2017 20:32 - CONCLUSION: Chronic changes and no evidence for acute fracture. Rubi Eckert MD Foot X-Ray 05/20/17 0000 Signed Impressions: Service Date/Time: Saturday, May 20, 2017 20:21 - CONCLUSION: Chronic changes and no evidence for acute fracture. Rubi Eckert MD Chest X-Ray 05/20/17 0000 Signed Impressions: Service Date/Time: Saturday, May 20, 2017 17:58 - CONCLUSION: Slight CHF. Rubi Eckert MD Objective Remarks GENERAL: This is a well-nourished, well-developed patient, in no apparent distress. CARDIOVASCULAR: Regular rate and rhythm without murmurs, gallops, or rubs. RESPIRATORY: Clear to auscultation. Breath sounds equal bilaterally. No wheezes , rales, or rhonchi. GASTROINTESTINAL: Abdomen soft, non-tender, nondistended. Normal active bowel sounds MUSCULOSKELETAL: Extremities without clubbing, cyanosis, or edema. NEURO: Alert & Oriented x4 to person, place, time, situation. Moves all ext x4 A/P Problem List: (1) Iron deficiency anemia ICD Codes: D50.9 - Iron deficiency anemia, unspecified Status: Acute Plan: - Pt on therapeutic on coumadin for Afib, INR 2.5 (05/20/17) - Pt presented with c/o worsening generalized weakness and falls at home - Hg 9.2 (05/20/17), 7.5 (05/21/17) - iron indices show iron deficiency - serum iron 14 (05/21/17) - transfuse 2 units PRBCs, with lasix between units - repeat CBC in AM - Request GI Consultation, r/o GIB - obtain stool hemoccult (2) CHF (congestive heart failure) ICD Codes: I50.9 - Heart failure, unspecified Plan: - BNP 344 (05/20/17) - CXR (05/20/17) --> mild CHF - no LE edema & lungs clear - continue outpt lasix 40mg daily - obtain repeat BNP, BMP, Mg, CXR in AM - DVT prophylaxis (3) Change in mental status ICD Codes: R41.82 - Altered mental status, unspecified Status: Resolved Plan: - MRI brain (05/21/17) --> old left infarct, no acute findings - clinically pt seemed A&O x 3, likely at baseline - obtain TSH, free T4, b12, folate RPR, ammonia (4) Gait difficulty ICD Codes: R26.9 - Unspecified abnormalities of gait and mobility Status: Acute Plan: - MRI brain (05/21) --> no acute findings - PT to asses - possibly d/t underlying anemia (5) Right foot pain ICD Codes: M79.671 - Pain in right foot Plan: - right foot xray --> NO acute findings - now c/o right ankle pain, obtain plain films (6) Leukocytosis ICD Codes: D72.829 - Elevated white blood cell count, unspecified Plan: - unclear etiology - WBC 19.1 (05/20), 12.1 (05/21) - UA/Cx pending - CXR (03/20) --> mild CHF, no pneumonia - Tmax 102F at noon 05/21/17 - follow results of blood/urine cultures (7) Atrial fibrillation, chronic ICD Codes: I48.2 - Chronic atrial fibrillation Status: Chronic Plan: - INR 2.5 (05/20) - stable HR - digoxin, metoprolol, cardizem 90mg q6h (8) DM2 (diabetes mellitus, type 2) ICD Codes: E11.9 - Type 2 diabetes mellitus without complications Status: Chronic Plan: - SSI (9) CAD (coronary artery disease) ICD Codes: I25.10 - Atherosclerotic heart disease of [place] coronary artery without angina pectoris Status: Chronic Plan: - s/p CABG Feb 2017 - ASA, metoprolol, pravachol Problem Qualifiers (1) Iron deficiency anemia: Qualified Codes: D50.9 - Iron deficiency anemia, unspecified (2) DM2 (diabetes mellitus, type 2): Qualified Codes: E11.8 - Type 2 diabetes mellitus with unspecified complications; Z79.4 - prison (current) use of insulin (3) CAD (coronary artery disease): Qualified Codes: I25.10 - Atherosclerotic heart disease of [place] coronary artery without angina pectoris Saleem Castillo DO May 21, 2017 23:23
[2017-05-21] MEDS ORDERED: SODIUM CHLOR 0.9% 250 ML INJ 250 ML IV ONE (23:45)
[2017-05-22] VITALS (13 sets, daily range): BP systolic 120–157; BP diastolic 58–67; PULSE 68–94; RESP 16–20; TEMP 97.7–102.7; O2SAT 94–98
[2017-05-22 04:50] LABS: BILIRUBIN, URINE NEG (NEG); BLOOD, URINE SMALL (NEG); GLUCOSE,URINE NEG (NEG); KETONE, URINE NEG (NEG); NITRITE,URINE NEG (NEG); URINE COLOR YELLOW (YELLW/STRAW); URINE LEUKOCYTE ESTERASE NEG (NEG)
[2017-05-22 05:41] LABS: BASOPHIL # 0.1 TH/MM3 (0-0.2); BASOPHIL % 0.6 % (0.0-2.0); EOSINOPHIL # 0.2 TH/MM3 (0-0.4); EOSINOPHIL % 1.1 % (0.0-4.0); HEMATOCRIT 25.6 % (39.0-51.0); HEMOGLOBIN 8.3 GM/DL (13.0-17.0); LYMPH % 30.6 % (9.0-44.0); LYMPHOCYTE # 4.5 TH/MM3 (1.0-4.8); MEAN CELL VOLUME 77.7 FL (80.0-100.0); MEAN CORPUSCULAR HEMOGLOBIN 25.3 PG (27.0-34.0); MEAN CORPUSCULAR HGB CONC 32.5 % (32.0-36.0); MEAN PLATELET VOLUME 6.9 FL (7.0-11.0); MONO % 13.8 % (0.0-8.0); NEUT % 53.9 % (16.0-70.0); PLATELET COUNT 380 TH/MM3 (150-450); RED BLOOD COUNT 3.29 MIL/MM3 (4.50-5.90); RED CELL DISTRIBUTION WIDTH 18.4 % (11.6-17.2); WHITE BLOOD COUNT 14.8 TH/MM3 (4.0-11.0)
[2017-05-22 05:53] LABS: INTERNATIONAL NORMALIZED RATIO 2.1 RATIO; PROTHROMBIN TIME - PATIENT 21.6 SEC (9.8-11.6)
[2017-05-22 06:30] LABS: BICARBONATE 29.3 MEQ/L (21.0-32.0); BLOOD UREA NITROGEN 28 MG/DL (7-18); CALCIUM 8.7 MG/DL (8.5-10.1); CHLORIDE 99 MEQ/L (98-107); CREATININE 2.25 MG/DL (0.60-1.30); GLOMERULAR FILTRATION RATE 29 ML/MIN (>89); GLUCOSE,RANDOM 125 MG/DL (74-106); MAGNESIUM 2.2 MG/DL (1.5-2.5); SODIUM (NA) 134 MEQ/L (136-145)
[2017-05-22 07:11] LABS: FREE T4 1.31 NG/DL (0.76-1.46)
[2017-05-22 07:16] LABS: FOLATE GREATER THAN 20.0 NG/ML (3.1-17.5)
[2017-05-22] MEDS: INSULIN ASPART SUPPLEMENTAL SCALE SQ SCH ×4 (08:00→23:01)
[2017-05-22] MEDS ORDERED: FUROSEMIDE 40 MG TAB PO SCH (09:00)
[2017-05-22] MEDS: METOPROLOL SUCCINATE 50 MG EXTENDED RELEASE TAB PO SCH (09:21)
[2017-05-22] MEDS: PRAVASTATIN SOD 80 MG TAB PO SCH (09:21)
[2017-05-22] MEDS: FAMOTIDINE 20 MG TAB PO SCH (09:21)
[2017-05-22] MEDS: ASPIRIN EC 81 MG TABEC PO SCH (09:21)
[2017-05-22] MEDS: ALLOPURINOL 100 MG TAB PO SCH (09:21)
[2017-05-22] MEDS: SODIUM CHLORIDE 0.9% FLUSH 10 ML FLUSH IV FLUSH SCH ×2 (09:21→21:23)
[2017-05-22] MEDS: DILTIAZEM HCL 60 MG TAB PO SCH ×4 (09:21→21:19)
[2017-05-22] MEDS: DOCUSATE SODIUM 50 MG/SENNA 8.6 MG TAB PO SCH ×2 (09:21→21:21)
[2017-05-22] MEDS: DIGOXIN 0.125 MG TAB PO SCH (09:21)
[2017-05-22] MEDS: SPIRONOLACTONE 25 MG TAB PO SCH (09:22)
--- NOTE | 2017-05-22 09:44 | RADRPT ---
EXAM DATE/TIME: 05/22/2017 08:34 [facility] COMPARISON: No previous studies available for comparison. INDICATIONS : Fell pain right ankle, lateral malleous. Mild swelling. MEDICAL HISTORY : Myocardial infarction. SURGICAL HISTORY : CABG. ENCOUNTER: Initial ACUITY: 1 day PAIN SCORE: 9/10 LOCATION: Right ankle FINDINGS: There is no evidence of acute fracture. Bony mineralization is normal. The ankle mortise is intact. A n inferior calcaneal spur is present. CONCLUSION: 1. There is no evidence of acute fracture. Huy Wright MD on May 22, 2017 at 9:42 Board Certified Radiologist. This report was verified electronically.
[2017-05-22] MEDS ORDERED: FUROSEMIDE 20 MG/2 ML VIAL IV PUSH ONE (09:45)
--- NOTE | 2017-05-22 09:45 | RADRPT ---
EXAM DATE/TIME: 05/22/2017 08:37 [facility] COMPARISON: No previous studies available for comparison. INDICATIONS : Short of breath with weakness. Congestion, cough. MEDICAL HISTORY : Myocardial infarction. SURGICAL HISTORY : CABG. ENCOUNTER: Subsequent ACUITY: 3 days PAIN SCORE: 0/10 LOCATION: Bilateral chest FINDINGS: The cardiac silhouette is enlarged in transverse diameter. Median sternotomy wires are present. There are findings of congestive heart failure with interstitial and alveolar opacity bilaterally. Small b ilateral pleural effusions are identified. CONCLUSION: 1. Cardiomegaly and findings of congestive heart failure. Huy Wright MD on May 22, 2017 at 9:42 Board Certified Radiologist. This report was verified electronically.
--- NOTE | 2017-05-22 13:39 | PD.CONS ---
HPI History of Present Illness This is a 76 year old male who came into the hospital on 05/20/17 with complaints of lower extremity edema weakness and falls. Patient is now resting in the bed and receiving a blood transfusion. Family member is at his bedside and states that he has received 2 units of packed RBCs today, and continues to have debility. Patient notes a history of reflux, currently has occasional mild symptoms of nausea but no vomiting, no dysphagia no diarrhea, but does suffer from constipation since his CABG surgery in February 2017. Patient labs review anemia, consistent with iron deficiency anemia and possible acute blood loss although patient denies any rectal bleeding, no hematemesis. Hemoglobin initially was 7.5 now 8.3. Patient is on Coumadin therapy INR is 2.1. Patient' s iron level is 14, TIBC 236, iron saturation 6%. Medications for reflux are currently being managed with Pepcid 20 mg daily. Patient has never had EGD or colonoscopy. Patient is a fair to poor historian, family member assisting with information PFSH Past Medical History Cardiovascular disease, coronary artery disease Atrial fib, on Coumadin Lower extremity edema, Diabetes mellitus type 2 Chest of heart failure CVA GERD, history of ulcer probable gastric according to daughter Past Surgical History CABG February 2017 emergent Coded Allergies: Sulfa (Sulfonamide Antibiotics) (Unverified Allergy, Severe, 12/30/16) Medications Administered Medications Medications (Trade) Dose Ordered Sig/Félix Route PRN Reason Start Time Stop Time Status Last Admin Dose Admin Allopurinol (Zyloprim) 100 mg DAILY PO 05/21/17 09:00 05/22/17 09:21 Aspirin (Ecotrin Ec) 81 mg DAILY PO 05/21/17 09:00 05/22/17 09:21 Digoxin (Lanoxin) 0.125 mg DAILY PO 05/21/17 09:00 05/22/17 09:21 Diltiazem HCl (Cardizem) 90 mg QID PO 05/20/17 21:00 05/22/17 09:21 Famotidine (Pepcid) 20 mg DAILY PO 05/21/17 09:00 05/22/17 09:21 Spironolactone (Aldactone) 12.5 mg DAILY PO 05/21/17 09:00 05/22/17 09:22 Tamsulosin HCl (Flomax) 0.4 mg HS PO 1/3/18 21:00 05/21/17 20:44 Warfarin Sodium (Coumadin) 3 mg DAILY@1600 PO 05/21/17 16:00 05/21/17 16:45 Metoprolol Succinate (Toprol Xl) 50 mg DAILY PO 05/21/17 09:00 05/22/17 09:21 Pravastatin Sodium (Pravachol) 80 mg DAILY PO 05/21/17 09:00 05/22/17 09:21 Sodium Chloride (NS Flush) 2 ml BID IV FLUSH 05/20/17 21:00 05/22/17 09:21 Acetaminophen (Tylenol) 650 mg Q4H PRN PO TEMP > 100.4 05/20/17 20:00 05/21/17 12:56 Senna/Docusate Sodium (Jessica-Colace) 1 tab BID PO 05/20/17 21:00 05/22/17 09:21 Furosemide (Lasix) 40 mg DAILY PO 05/22/17 09:00 05/22/17 09:21 Family History No history of family colon cancer Social History No alcohol Review of Systems Constitutional: COMPLAINS OF: Fatigue Gastrointestinal: COMPLAINS OF: Nausea GI Exam Vitals I&O Vital Signs Date Time Temp Pulse Resp B/P (MAP) Pulse Ox O2 Delivery O2 Flow Rate FiO2 05/22/17 12:18 98.6 74 16 144/61 98 05/22/17 12:03 98.5 82 16 138/61 96 05/22/17 09:00 Nasal Cannula 3.00 05/22/17 08:00 83 05/22/17 06:15 98.4 72 18 128/58 96 05/22/17 05:52 98.3 87 16 130/62 97 05/22/17 04:15 75 05/22/17 04:00 97.7 89 20 120/58 (78) 94 05/22/17 04:00 Nasal Cannula 3.00 05/22/17 00:17 76 05/22/17 00:00 Nasal Cannula 3.00 05/22/17 00:00 98.7 93 18 132/60 (84) 95 05/21/17 22:28 95 Nasal Cannula 4.00 05/21/17 20:00 99.8 88 18 126/59 (81) 98 05/21/17 20:00 Nasal Cannula 4.00 05/21/17 19:57 74 05/21/17 16:00 98.8 86 20 128/58 (81) 95 05/21/17 14:13 99.7 I/O 05/21/17 05/21/17 05/21/17 05/22/17 05/22/17 05/22/17 07:00 15:00 23:00 07:00 15:00 23:00 Intake Total 720 ml 980 ml 420 ml Output Total 1000 ml 600 ml Balance -1000 ml 720 ml 380 ml 420 ml Intake Oral 720 ml 680 ml Packed Cells 400 ml Blood Product IV Normal Saline Flush 300 ml 20 ml Output Urine Total 1000 ml 600 ml # Voids 1 # Bowel Movements 0 1 Imaging Last Impressions Ankle X-Ray 05/22/17 0800 Signed Impressions: Service Date/Time: Monday, May 22, 2017 08:34 - CONCLUSION: 1. There is no evidence of acute fracture. Huy Wright MD Chest X-Ray 05/22/17 0600 Signed Impressions: Service Date/Time: Monday, May 22, 2017 08:37 - CONCLUSION: 1. Cardiomegaly and findings of congestive heart failure. Huy Wright MD Brain MRI 05/21/17 0000 Signed Impressions: Service Date/Time: May 08:55 - CONCLUSION: 1. No evidence of acute intracranial pathology. No masses are identified. 2. Old left occipital infarct Huy Wright MD Wrist X-Ray 05/20/17 0000 Signed Impressions: Service Date/Time: Saturday, May 20, 2017 20:32 - CONCLUSION: Chronic changes and no evidence for acute fracture. Rubi Eckert MD Foot X-Ray 05/20/17 0000 Signed Impressions: Service Date/Time: Saturday, May 20, 2017 20:21 - CONCLUSION: Chronic changes and no evidence for acute fracture. Rubi Eckert MD Laboratory Test 05/22/17 04:15 05/22/17 05:18 Urine Color YELLOW Urine Turbidity CLEAR Urine pH 7.0 Urine Specific [place] 1.015 Urine Protein 30 mg/dL Urine Glucose (UA) NEG mg/dL Urine Ketones NEG mg/dL Urine Occult Blood SMALL Urine Nitrite NEG Urine Bilirubin NEG Urine Urobilinogen LESS THAN 2.0 MG/DL Urine Leukocyte Esterase NEG Urine RBC 20 /hpf Urine WBC 1 /hpf Microscopic Urinalysis Comment CULT NOT INDICATED White Blood Count 14.8 TH/MM3 Red Blood Count 3.29 MIL/MM3 Hemoglobin 8.3 GM/DL Hematocrit 25.6 % Mean Corpuscular Volume 77.7 FL Mean Corpuscular Hemoglobin 25.3 PG Mean Corpuscular Hemoglobin Concent 32.5 % Red Cell Distribution Width 18.4 % Platelet Count 380 TH/MM3 Mean Platelet Volume 6.9 FL Neutrophils (%) (Auto) 53.9 % Lymphocytes (%) (Auto) 30.6 % Monocytes (%) (Auto) 13.8 % Eosinophils (%) (Auto) 1.1 % Basophils (%) (Auto) 0.6 % Neutrophils # (Auto) 8.0 TH/MM3 Lymphocytes # (Auto) 4.5 TH/MM3 Monocytes # (Auto) 2.0 TH/MM3 Eosinophils # (Auto) 0.2 TH/MM3 Basophils # (Auto) 0.1 TH/MM3 CBC Comment DIFF FINAL Differential Comment Prothrombin Time 21.6 SEC Prothromb Time International Ratio 2.1 RATIO Blood Urea Nitrogen 28 MG/DL Creatinine 2.25 MG/DL Random Glucose 125 MG/DL Calcium Level 8.7 MG/DL Magnesium Level 2.2 MG/DL Sodium Level 134 MEQ/L Potassium Level 4.1 MEQ/L Chloride Level 99 MEQ/L Carbon Dioxide Level 29.3 MEQ/L Anion Gap 6 MEQ/L Estimat Glomerular Filtration Rate 29 ML/MIN Ammonia LESS THAN 10 MCMOL/L B-Type Natriuretic Peptide 451 PG/ML Vitamin B12 Level 517 PG/ML Folate GREATER THAN 20.0 NG/ML Free Thyroxine 1.31 NG/DL Thyroid Stimulating Hormone 3rd Gen 3.010 uIU/ML Rapid Plasma Reagin NON-REACTIVE Date/Time Source Procedure Growth Status 05/21/17 11:41 Blood Other Aerobic Blood Culture - Preliminary NO GROWTH IN 1 DAY Resulted 05/21/17 11:41 Blood Other Anaerobic Blood Culture - Preliminary NO GROWTH IN 1 DAY Resulted 05/21/17 06:30 Urine Other Urine Culture - Preliminary IMMATURE GROWTH - REINCUBATE Resulted Physical Examination HEENT: Pupils round and reactive to light; normocephalic; atraumatic; no jaundice, pale but no jaundice NECK: Neck is supple, no JVD, no lymphadenopathy. CHEST: Diminished breath sounds. CARDIAC: Irregular rate and rhythm ABDOMEN: Round, Soft, nondistended, nontender; no hepatosplenomegaly; bowel sounds are present in all four quadrants. EXTREMITIES: 1+ lower extremity edema. SKIN: Normal; no rash; no jaundice. PESTICIDE APPLICATOR: No focal deficits; alert and oriented times 2 Assessment and Plan Assessment: (1) GI bleeding ICD Codes: K92.2 - Gastrointestinal hemorrhage, unspecified Status: Acute Plan: Possible GI bleed patient is requiring blood products today, patient is also being managed on Coumadin, INR 2.1 (2) GERD (gastroesophageal reflux disease) ICD Codes: K21.9 - Gastro-esophageal reflux disease without esophagitis (3) Iron deficiency anemia ICD Codes: D50.9 - Iron deficiency anemia, unspecified Status: Acute Plan Assessment: (1) Iron deficiency anemia ICD Codes: D50.9 - Iron deficiency anemia, unspecified Status: Acute Plan C and anemia probably secondary to chronic disease such as his heart disease and chronic kidney disease, acute on chronic Started on ferrous sulfate 325 mg twice a day with meals lunch and dinner., Iron level low at 14, TIBC 235, oxygen saturation 6 Normal LFTs total bilirubin 0.3, AST 12 ALT 12 alkaline phosphatase 77. Plan for EGD and colonoscopy for Thursday, Will need cardiac clearance for patient 's testing Hold Coumadin and monitor labs for INR to be less than 2. Coumadin is on hold today and tomorrow and Thursday and Thursday they have testing Start Protonix 40 mg daily Ferrous sulfate 325 mg twice a day with food lunch and dinner Monitor for any acute GI bleed upper or lower Monitor labs special attention to hemoglobin Mag citrate today for his chronic constipation. Family member states it's been several days since patient had a bowel movement. Patient will be unable to tolerate Go lytely, we'll plan mag citrate for Thursday. Plan of care has been discussed with Dr. Barrientos, and will be based on his symptomatic needs with further procedures This note was written by myself, case discussed with Dr. Barrientos, seen on his behalf Problem Qualifiers (1) Iron deficiency anemia: Qualified Codes: D50.9 - Iron deficiency anemia, unspecified Shannon Mohan May 22, 2017 13:39
[2017-05-22] MEDS ORDERED: MAGNESIUM CITRATE SOLN 300 ML BTL PO ONE ×2 (14:00→15:00)
[2017-05-22] MEDS: FERROUS SULFATE 325 MG (65 MG ELEMENTAL IRON) TAB PO SCH (17:10)
--- NOTE | 2017-05-22 18:46 | HHI.PR ---
Objective Vitals Vital Signs Date Time Temp Pulse Resp B/P (MAP) Pulse Ox O2 Delivery O2 Flow Rate FiO2 05/22/17 15:41 98 Nasal Cannula 4.00 05/22/17 12:18 98.6 74 16 144/61 98 05/22/17 12:03 98.5 82 16 138/61 96 05/22/17 12:00 98.5 72 20 138/61 (86) 95 05/22/17 09:00 Nasal Cannula 3.00 05/22/17 08:00 83 05/22/17 08:00 99.0 68 20 157/67 (97) 05/22/17 06:15 98.4 72 18 128/58 96 05/22/17 05:52 98.3 87 16 130/62 97 05/22/17 04:15 75 05/22/17 04:00 97.7 89 20 120/58 (78) 94 05/22/17 04:00 Nasal Cannula 3.00 05/22/17 00:17 76 05/22/17 00:00 Nasal Cannula 3.00 05/22/17 00:00 98.7 93 18 132/60 (84) 95 05/21/17 22:28 95 Nasal Cannula 4.00 05/21/17 20:00 99.8 88 18 126/59 (81) 98 05/21/17 20:00 Nasal Cannula 4.00 05/21/17 19:57 74 05/22/17 05/22/17 05/23/17 15:00 23:00 07:00 Intake Total 420 ml 410 ml Balance 420 ml 410 ml Packed Cells 400 ml 400 ml Blood Product IV Normal Saline Flush 20 ml 10 ml Result Diagram: 05/22/1751705/22/17517 Other Results Laboratory Tests Test 05/20/17 18:00 05/21/17 07:03 05/22/17 04:15 05/22/17 05:18 White Blood Count 19.1 TH/MM3 12.8 TH/MM3 14.8 TH/MM3 Red Blood Count 3.69 MIL/MM3 2.95 MIL/MM3 3.29 MIL/MM3 Hemoglobin 9.2 GM/DL 7.5 GM/DL 8.3 GM/DL Hematocrit 29.1 % 23.1 % 25.6 % Mean Corpuscular Volume 78.8 FL 78.2 FL 77.7 FL Mean Corpuscular Hemoglobin 25.0 PG 25.3 PG 25.3 PG Mean Corpuscular Hemoglobin Concent 31.8 % 32.4 % 32.5 % Red Cell Distribution Width 19.1 % 18.8 % 18.4 % Platelet Count 432 TH/MM3 382 TH/MM3 380 TH/MM3 Mean Platelet Volume 7.4 FL 7.2 FL 6.9 FL Neutrophils (%) (Auto) 54.6 % 50.9 % 53.9 % Lymphocytes (%) (Auto) 31.6 % 32.9 % 30.6 % Monocytes (%) (Auto) 12.6 % 13.1 % 13.8 % Eosinophils (%) (Auto) 0.6 % 2.4 % 1.1 % Basophils (%) (Auto) 0.6 % 0.7 % 0.6 % Neutrophils # (Auto) 10.4 TH/MM3 6.5 TH/MM3 8.0 TH/MM3 Lymphocytes # (Auto) 6.1 TH/MM3 4.2 TH/MM3 4.5 TH/MM3 Monocytes # (Auto) 2.4 TH/MM3 1.7 TH/MM3 2.0 TH/MM3 Eosinophils # (Auto) 0.1 TH/MM3 0.3 TH/MM3 0.2 TH/MM3 Basophils # (Auto) 0.1 TH/MM3 0.1 TH/MM3 0.1 TH/MM3 CBC Comment AUTO DIFF DIFF FINAL DIFF FINAL Differential Total Cells Counted 100 Neutrophils % (Manual) 63 % Lymphocytes % 28 % Monocytes % 5 % Eosinophils % 3 % Basophils % 1 % Neutrophils # (Manual) 12.0 TH/MM3 Differential Comment FINAL DIFF MANUAL Atypical Lymphocytes % Platelet Estimate NORMAL Platelet Morphology Comment NORMAL Tear Drop Cells 1+ Ovalocytes 1+ Prothrombin Time 24.9 SEC 21.6 SEC Prothromb Time International Ratio 2.5 RATIO 2.1 RATIO Activated Partial Thromboplast Time 50.6 SEC Blood Urea Nitrogen 27 MG/DL 27 MG/DL 28 MG/DL Creatinine 2.63 MG/DL 2.67 MG/DL 2.25 MG/DL Random Glucose 120 MG/DL 109 MG/DL 125 MG/DL Total Protein 7.3 GM/DL 6.6 GM/DL Albumin 2.8 GM/DL 2.5 GM/DL Calcium Level 9.1 MG/DL 8.8 MG/DL 8.7 MG/DL Magnesium Level 2.3 MG/DL 2.2 MG/DL Alkaline Phosphatase 89 U/L 77 U/L Aspartate Amino Transf (AST/SGOT) 19 U/L 12 U/L Alanine Aminotransferase (ALT/SGPT) 16 U/L 12 U/L Total Bilirubin 0.3 MG/DL 0.3 MG/DL Sodium Level 134 MEQ/L 135 MEQ/L 134 MEQ/L Potassium Level 4.8 MEQ/L 3.8 MEQ/L 4.1 MEQ/L Chloride Level 97 MEQ/L 98 MEQ/L 99 MEQ/L Carbon Dioxide Level 27.3 MEQ/L 29.2 MEQ/L 29.3 MEQ/L Anion Gap 10 MEQ/L 8 MEQ/L 6 MEQ/L Estimat Glomerular Filtration Rate 24 ML/MIN 24 ML/MIN 29 ML/MIN B-Type Natriuretic Peptide 344 PG/ML 451 PG/ML Iron Level 14 MCG/DL Total Iron Binding Capacity 235 MCG/DL Percent Iron Saturation 6.0 % Urine Color YELLOW Urine Turbidity CLEAR Urine pH 7.0 Urine Specific [place] 1.015 Urine Protein 30 mg/dL Urine Glucose (UA) NEG mg/dL Urine Ketones NEG mg/dL Urine Occult Blood SMALL Urine Nitrite NEG Urine Bilirubin NEG Urine Urobilinogen LESS THAN 2.0 MG/DL Urine Leukocyte Esterase NEG Urine RBC 20 /hpf Urine WBC 1 /hpf Microscopic Urinalysis Comment CULT NOT INDICATED Ammonia LESS THAN 10 MCMOL/L Vitamin B12 Level 517 PG/ML Folate GREATER THAN 20.0 NG/ML Free Thyroxine 1.31 NG/DL Thyroid Stimulating Hormone 3rd Gen 3.010 uIU/ML Rapid Plasma Reagin NON-REACTIVE Imaging Last Impressions Brain MRI 05/21/17 0000 Signed Impressions: Service Date/Time: May 08:55 - CONCLUSION: 1. No evidence of acute intracranial pathology. No masses are identified. 2. Old left occipital infarct Huy Wright MD Wrist X-Ray 05/20/17 0000 Signed Impressions: Service Date/Time: Saturday, May 20, 2017 20:32 - CONCLUSION: Chronic changes and no evidence for acute fracture. Rubi Eckert MD Foot X-Ray 05/20/17 0000 Signed Impressions: Service Date/Time: Saturday, May 20, 2017 20:21 - CONCLUSION: Chronic changes and no evidence for acute fracture. Rubi Eckert MD Chest X-Ray 05/20/17 0000 Signed Impressions: Service Date/Time: Saturday, May 20, 2017 17:58 - CONCLUSION: Slight CHF. K. Juan Miguel Eckert MD Objective Remarks GENERAL: This is a well-nourished, well-developed patient, in no apparent distress. CARDIOVASCULAR: Regular rate and rhythm without murmurs, gallops, or rubs. RESPIRATORY: Clear to auscultation. Breath sounds equal bilaterally. No wheezes , rales, or rhonchi. GASTROINTESTINAL: Abdomen soft, non-tender, nondistended. Normal active bowel sounds MUSCULOSKELETAL: Extremities without clubbing, cyanosis, or edema. NEURO: Alert & Oriented x4 to person, place, time, situation. Moves all ext x4 A/P Problem List: (1) Iron deficiency anemia ICD Codes: D50.9 - Iron deficiency anemia, unspecified Status: Acute Plan: - Pt on therapeutic on Coumadin for Afib, INR 2.5 (05/20/17) -> 2.1 (05/22) - Pt presented with c/o worsening generalized weakness and falls at home - Hg 9.2 (05/20/17), 7.5 (05/21/17), 8.3 (05/22/17) - iron indices show iron deficiency - ferrous sulfate PO BID per GI - serum iron 14 (05/21/17) - transfuse 2 units PRBCs, with lasix between units - repeat CBC in AM - Request GI Consultation, r/o GIB. GI has place Coumadin on hold and request cardiology consult for clearance prior to EGD/Colonoscopy - obtain stool Hemoccult (2) CHF (congestive heart failure) ICD Codes: I50.9 - Heart failure, unspecified Plan: - BNP 344 (05/20/17) -> 451 (05/22/17 - CXR (05/20/17) --> mild CHF - no LE edema & lungs clear - continue outpt lasix 40mg daily - repeat CXR reveals: cardiomegaly and CHF - DVT prophylaxis (3) Change in mental status ICD Codes: R41.82 - Altered mental status, unspecified Status: Resolved Plan: - MRI brain (05/21/17) --> old left infarct, no acute findings - clinically pt seemed A&O x 3, likely at baseline - obtain TSH, free T4, b12, folate RPR, ammonia (4) Gait difficulty ICD Codes: R26.9 - Unspecified abnormalities of gait and mobility Status: Acute Plan: - MRI brain (05/21) --> no acute findings - PT to asses - possibly d/t underlying anemia (5) Right foot pain ICD Codes: M79.671 - Pain in right foot Plan: - right foot xray --> NO acute findings - now c/o right ankle pain, obtain plain films (6) Leukocytosis ICD Codes: D72.829 - Elevated white blood cell count, unspecified Plan: - unclear etiology - WBC 19.1 (05/20), 12.8 (05/21), 14.8 (05/22/17) - UA/Cx pending - CXR (03/20) --> mild CHF, no pneumonia - Tmax 102F at noon 05/21/17 - follow results of blood - UA reviewed no culture indicated (7) Atrial fibrillation, chronic ICD Codes: I48.2 - Chronic atrial fibrillation Status: Chronic Plan: - INR 2.5 (05/20) - stable HR - digoxin, metoprolol, cardizem 90mg q6h (8) DM2 (diabetes mellitus, type 2) ICD Codes: E11.9 - Type 2 diabetes mellitus without complications Status: Chronic Plan: - SSI (9) CAD (coronary artery disease) ICD Codes: I25.10 - Atherosclerotic heart disease of [place] coronary artery without angina pectoris Status: Chronic Plan: - s/p CABG Feb 2017 - ASA, metoprolol, pravachol Problem Qualifiers (1) Iron deficiency anemia: Qualified Codes: D50.9 - Iron deficiency anemia, unspecified (2) DM2 (diabetes mellitus, type 2): Qualified Codes: E11.8 - Type 2 diabetes mellitus with unspecified complications; Z79.4 - [facility] (current) use of insulin (3) CAD (coronary artery disease): Qualified Codes: I25.10 - Atherosclerotic heart disease of [place] coronary artery without angina pectoris Cherelle Benjamin May 22, 2017 18:46
[2017-05-22 20:29] LABS: AUTOMATED NEUTROPHIL # 10.7 TH/MM3 (1.8-7.7); BASOPHIL # 0.1 TH/MM3 (0-0.2); BASOPHIL % 0.7 % (0.0-2.0); EOSINOPHIL # 0.2 TH/MM3 (0-0.4); EOSINOPHIL % 1.3 % (0.0-4.0); HEMATOCRIT 32.3 % (39.0-51.0); HEMOGLOBIN 10.6 GM/DL (13.0-17.0); LYMPH % 22.8 % (9.0-44.0); LYMPHOCYTE # 3.8 TH/MM3 (1.0-4.8); MEAN CELL VOLUME 78.1 FL (80.0-100.0); MEAN CORPUSCULAR HEMOGLOBIN 25.6 PG (27.0-34.0); MEAN CORPUSCULAR HGB CONC 32.8 % (32.0-36.0); MONO % 11.3 % (0.0-8.0); MONOCYTE # 1.9 TH/MM3 (0-0.9); NEUT % 63.9 % (16.0-70.0); PLATELET COUNT 382 TH/MM3 (150-450); RED BLOOD COUNT 4.13 MIL/MM3 (4.50-5.90); RED CELL DISTRIBUTION WIDTH 18.6 % (11.6-17.2); WHITE BLOOD COUNT 16.7 TH/MM3 (4.0-11.0)
[2017-05-22] MEDS: TAMSULOSIN HCL 0.4 MG CAP PO SCH (21:20)
[2017-05-22] MEDS: ACETAMINOPHEN 325 MG TAB PO PRN (21:20)
--- NOTE | 2017-05-22 23:41 | EKG ---
Date Performed: 05/20/2017 Time Performed: 17:04:43 PTAGE: 76 years EKG: ATRIAL FIBRILLATION INTRAVENTRICULAR CONDUCTION DELAY POSSIBLE LEFT VENTRICULAR HYPERTROPHY POSSIBLE ANTERIOR MYOCARDIAL INFARCTION ABNORMAL ECG NO PREVIOUS TRACING DOCTOR: Miguel Yeung Interpretating Date/Time 05/22/2017 23:39:29
[2017-05-23] VITALS (9 sets, daily range): BP systolic 122–152; BP diastolic 60–69; PULSE 68–97; RESP 17–18; TEMP 97.9–99.5; O2SAT 91–97
[2017-05-23] MEDS: INSULIN ASPART SUPPLEMENTAL SCALE SQ SCH ×4 (09:21→19:51)
[2017-05-23] MEDS: SODIUM CHLORIDE 0.9% FLUSH 10 ML FLUSH IV FLUSH SCH ×2 (09:21→21:00)
[2017-05-23] MEDS: SPIRONOLACTONE 25 MG TAB PO SCH (09:23)
[2017-05-23] MEDS: DILTIAZEM HCL 60 MG TAB PO SCH ×4 (09:23→21:00)
[2017-05-23] MEDS: DOCUSATE SODIUM 50 MG/SENNA 8.6 MG TAB PO SCH ×2 (09:24→20:59)
[2017-05-23] MEDS: ALLOPURINOL 100 MG TAB PO SCH (09:24)
[2017-05-23] MEDS: DIGOXIN 0.125 MG TAB PO SCH (09:24)
[2017-05-23] MEDS: PRAVASTATIN SOD 80 MG TAB PO SCH (09:24)
[2017-05-23] MEDS: FAMOTIDINE 20 MG TAB PO SCH (09:24)
[2017-05-23] MEDS: METOPROLOL SUCCINATE 50 MG EXTENDED RELEASE TAB PO SCH (09:24)
[2017-05-23] MEDS: FUROSEMIDE 40 MG/4 ML VIAL IV PUSH SCH ×2 (09:35→18:35)
[2017-05-23 11:17] LABS: BICARBONATE 30.4 MEQ/L (21.0-32.0); CREATININE 1.9 MG/DL (0.60-1.30)
[2017-05-23] MEDS: FERROUS SULFATE 325 MG (65 MG ELEMENTAL IRON) TAB PO SCH ×2 (12:34→18:34)
[2017-05-23] MEDS: ACETAMINOPHEN 325 MG TAB PO PRN ×2 (12:34→21:01)
--- NOTE | 2017-05-23 13:17 | MB ---
cc: SEAN SCHULTZ DATE OF CONSULTATION: 05/23/17 HISTORY OF PRESENT ILLNESS This is a 76-year-old gentleman who is admitted to the hospital because of falls and significant weakness. He had CABG done three months ago in February. This was complicated by renal failure with a prolonged hospital stay. He had initially been in rehab but was sent home and was home for the past week, stood up and had two falls resulting in pain in his feet. He is apparently somewhat confused on admission but is awake and alert and appropriate today during exam. He denies any problems with chest pains or shortness of breath and complains only of foot pains and significant weakness. Since his admission to the hospital, he has had a significant drop in hemoglobin from 9.2 to 7.5. He has been transfused back to 10.6. Denies any nausea or vomiting, change in bowel habits, melena or hematochezia. We have been asked to see him in clearance for an EGD and colonoscopy. Review of his laboratory examination is otherwise significant for renal dysfunction with a creatinine of 2.5. He has also been anticoagulated because of chronic atrial fibrillation with an INR of 2.1. BNP is mildly elevated at 451. Reviewing his chest x-ray does reveal evidence for pulmonary vascular overload and mild CHF. MEDICATIONS Medications at home have included - 1. Warfarin. 2. Digoxin 0.125 mg daily. 3. Furosemide 40 mg daily. 4. Diltiazem 90 mg four times daily. 5. Metoprolol 100 mg daily. 6. Allopurinol 100 daily. 7. Simvastatin 40 mg daily. 8. Aspirin 81 mg daily. 9. Spironolactone 12.5 daily. 10. Insulin as needed. ALLERGIES SULFA. SOCIAL HISTORY The patient does not smoke, drink or use recreational drugs. PHYSICAL EXAMINATION GENERAL: He is awake and alert. He does not appear to be in any acute distress. VITAL SIGNS: His blood pressure is 150/70, his pulse is approximately 80 and irregular. LUNGS: Lungs are grossly clear with rather poor inspiratory effort. CARDIOVASCULAR: Exam reveals an irregularly irregular rhythm with no significant murmur or gallop noted. EXTREMITIES: Extremities revealed no edema. There is no significant point tenderness and no skin changes are noted. ASSESSMENT The patient is weak following his CABG and will need extensive physical therapy and rehab. At this point in time, he does appear to have mild CHF and I have initiated intravenous Lasix therapy to help clear this so he probably should get out of his CHF prior to undergoing EGD and colonoscopy. It would also be permissible and I will hold his warfarin in anticipation of those procedures as well in the event that polyp snaring or the like might need to be accomplished. I have also ordered an echocardiogram to further evaluate his LV function. MD HARRISON Sexton/INES /8:44 AM /12:49 PM
[2017-05-23] MEDS ORDERED: PHYTONADIONE 5 MG TAB PO ONE (14:00)
[2017-05-23] MEDS ORDERED: PHYTONADIONE 5 MG/SWFI 5 ML ORAL SYR PO ONE (14:15)
--- NOTE | 2017-05-23 16:10 | HHI.PR ---
Subjective Remarks Pt sleepy today. Pt does open his eyes on command. Pt follows simple instructions. pt is able to answer questions appropriately. Objective Vitals Vital Signs Date Time Temp Pulse Resp B/P (MAP) Pulse Ox O2 Delivery O2 Flow Rate FiO2 05/23/17 12:31 99.5 93 18 137/69 (91) 93 05/23/17 12:00 82 05/23/17 11:04 91 Nasal Cannula 3.00 05/23/17 08:05 98.8 94 18 152/67 (95) 91 05/23/17 08:00 89 05/23/17 04:00 97.9 68 17 140/63 (88) 97 05/23/17 00:00 98.4 97 17 135/66 (89) 96 05/22/17 20:00 Nasal Cannula 3.00 05/22/17 20:00 102.7 89 17 152/67 (95) 94 05/22/17 16:00 99.0 94 20 134/63 (86) 97 Result Diagram: 05/22/17192705/23/17 0919 Imaging Last Impressions Brain MRI 05/21/17 0000 Signed Impressions: Service Date/Time: May 08:55 - CONCLUSION: 1. No evidence of acute intracranial pathology. No masses are identified. 2. Old left occipital infarct Huy Wright MD Wrist X-Ray 05/20/17 0000 Signed Impressions: Service Date/Time: Saturday, May 20, 2017 20:32 - CONCLUSION: Chronic changes and no evidence for acute fracture. Rubi Eckert MD Foot X-Ray 05/20/17 0000 Signed Impressions: Service Date/Time: Saturday, May 20, 2017 20:21 - CONCLUSION: Chronic changes and no evidence for acute fracture. Rubi Eckert MD Chest X-Ray 05/20/17 0000 Signed Impressions: Service Date/Time: Saturday, May 20, 2017 17:58 - CONCLUSION: Slight CHF. Rubi Eckert MD Objective Remarks GENERAL: This is a well-nourished, well-developed patient, in no apparent distress. CARDIOVASCULAR: Regular rate and rhythm without murmurs, gallops, or rubs. RESPIRATORY: Clear to auscultation. Breath sounds equal bilaterally. No wheezes , rales, or rhonchi. GASTROINTESTINAL: Abdomen soft, non-tender, nondistended. Normal active bowel sounds MUSCULOSKELETAL: pain with passive flexion of left knee. Swelling noted at left knee, but NO erythema or increased warmth. NEURO: Alert & Oriented x4 to person, place, time, situation. Moves all ext x4 A/P Problem List: (1) Fever, recurrent ICD Codes: A68.9 - Relapsing fever, unspecified Status: Acute Plan: - unclear etiology - temp: - 102.7F (05/21) at Noon - 102.7F (05/22) at 8PM - 99.5F (05/23) at 12:30PM - WBC 19.1 (05/20), 16.7 (05/23) - UA negative - CXR --> CHF, but NO evidence of pneumonia - NO c/o cough or dysuria - Case d/w ID, Dr. Mcdonald. He will consult. - obtain CT chest, CABG 02/2017 - obtain left knee x-ray (2) Iron deficiency anemia ICD Codes: D50.9 - Iron deficiency anemia, unspecified Status: Acute Plan: - comgmt with GI - Pt on therapeutic on Coumadin for Afib, INR 2.5 (05/20/17) -> 2.1 (05/22) - Pt presented with c/o worsening generalized weakness and falls at home - Hg 9.2 (05/20/17), 7.5 (05/21/17), 8.3 (05/22/17), 10.6 (05/22) - iron indices show iron deficiency - ferrous sulfate PO BID per GI - serum iron 14 (05/21/17) - transfused 2 units PRBCs (05/22/17) - repeat CBC in AM - stool Hemoccult neg 05/23 - EGD/Colonoscopy 05/25/17 (3) CHF (congestive heart failure) ICD Codes: I50.9 - Heart failure, unspecified Plan: - comanagement Cardiology - BNP 344 (05/20/17) -> 451 (05/22/17) - CXR (05/20/17) --> mild CHF - lasix changed to IV - repeat CXR reveals: cardiomegaly and CHF - DVT prophylaxis (4) Change in mental status ICD Codes: R41.82 - Altered mental status, unspecified Status: Resolved Plan: - MRI brain (05/21/17) --> old left infarct, no acute findings - clinically pt seemed A&O x 3, likely at baseline - MRI brain (05/22) --> old left occipital infarct - Case d/w pt's daughters bedside. Pt had CVA during admission for CABG Feb 2017 and increased confusion since - obtain TSH, free T4, b12, RPR, ammonia --> WNL (5) Gait difficulty ICD Codes: R26.9 - Unspecified abnormalities of gait and mobility Status: Acute Plan: - MRI brain (05/21) --> no acute findings - PT to asses - possibly d/t underlying anemia (6) Right foot pain ICD Codes: M79.671 - Pain in right foot Plan: - right foot xray --> NO acute findings - now c/o right ankle pain, obtain plain films (7) Atrial fibrillation, chronic ICD Codes: I48.2 - Chronic atrial fibrillation Status: Chronic Plan: - INR 2.5 (05/20) - stable HR - digoxin, metoprolol, cardizem 90mg q6h (8) DM2 (diabetes mellitus, type 2) ICD Codes: E11.9 - Type 2 diabetes mellitus without complications Status: Chronic Plan: - SSI (9) CAD (coronary artery disease) ICD Codes: I25.10 - Atherosclerotic heart disease of [place] coronary artery without angina pectoris Status: Chronic Plan: - s/p CABG Feb 2017 - ASA, metoprolol, pravachol (10) Knee pain, left ICD Codes: M25.562 - Pain in left knee Status: Acute Plan: - probably knee effusion - obtain x-ray series of left knee (11) Generalized weakness ICD Codes: R53.1 - Weakness Plan: - PT - Pt will need SNF upon discharge Problem Qualifiers (1) Iron deficiency anemia: Qualified Codes: D50.9 - Iron deficiency anemia, unspecified (2) DM2 (diabetes mellitus, type 2): Qualified Codes: E11.8 - Type 2 diabetes mellitus with unspecified complications; Z79.4 - local intermodal truck driver (current) use of insulin (3) CAD (coronary artery disease): Qualified Codes: I25.10 - Atherosclerotic heart disease of [place] coronary artery without angina pectoris (4) Knee pain, left: Qualified Codes: M25.562 - Pain in left knee Saleem Castillo DO May 23, 2017 16:10
--- NOTE | 2017-05-23 16:37 | RADRPT ---
EXAM DATE/TIME: 05/23/2017 14:58 [facility] COMPARISON: No previous studies available for comparison. INDICATIONS : Left knee pain. MEDICAL HISTORY : None. SURGICAL HISTORY : None. ENCOUNTER: Initial ACUITY: 2 weeks PAIN SCORE: 3/10 LOCATION: Left knee. FINDINGS: There is no evidence of acute fracture. Bony mineralization is normal. A suprapatellar joint effusion is present. CONCLUSION: 1. Joint effusion. There is no evidence of acute fracture. Huy Wright MD on May 23, 2017 at 16:34 Board Certified Radiologist. This report was verified electronically.
--- NOTE | 2017-05-23 16:44 | RADRPT ---
EXAM DATE/TIME: 05/23/2017 15:10 [facility] COMPARISON: No previous studies available for comparison. INDICATIONS : Fever of unknown origin status post CABG. RADIATION DOSE: 16.42 CTDIvol (mGy) MEDICAL HISTORY : Hypertension. Cardiovascular disease Cerebrovascular disease. SURGICAL HISTORY : CABG ENCOUNTER: Initial ACUITY: 1 day PAIN SCALE: 0/10 LOCATION: chest TECHNIQUE: Volumetric scanning of the chest was performed. Using automated exposure control and adjustment of t he mA and/or kV according to patient size, radiation dose was kept as low as reasonably achievable to obtain optimal diagnostic quality images. DICOM format image data is available electronically for r eview and comparison. Follow-up recommendations for detected pulmonary nodules are based at a minimum on nodule size and pa tient risk factors according to Fleischner Society Guidelines. FINDINGS: Bilateral pleural effusions are present which reliably i globes and may be in part loculated. These a re moderate in size. No pulmonary nodules are identified. There are scattered lymph nodes slightly en larged throughout the mediastinum likely reactive in nature. Coronary artery calcifications are prese nt. The visualized upper abdomen demonstrates no abnormality. CONCLUSION: 1. Moderate bilateral effusions which may be in part be loculated in the upper lobes. Huy Wright MD on May 23, 2017 at 16:36 Board Certified Radiologist. This report was verified electronically.
--- NOTE | 2017-05-23 17:57 | MB ---
cc: MAILE GELLER MD DATE OF CONSULTATION 05/23/[address] Castillo REASON FOR CONSULTATION Recurrent fever and elevated white blood cell count. No clear source. HISTORY OF PRESENT ILLNESS This is a 76-year-old white male who was brought to the emergency department on May 20. The patient was brought by his family after he was noted to have fallen at home and also had altered mental status and was extremely weak. The patient's daughter states that he had been previously taken to the emergency department on May 18 with altered mental status. She also notes that he had fallen at the same time prior to being brought to the emergency department and that he was evaluated and he was felt to have physical deconditioning. He was sent home and his daughter brought him back again on May 20 because of continued altered mental status and profound weakness. He is noted to be anemic and is receiving blood transfusions as well. The patient was recently treated with ciprofloxacin for presumed urinary tract infection before he was brought to the emergency department on May 18. He also was put on Neurontin and his daughter mentions that it probably was causing his mental status problems and caused him to fall. She tells me that the Neurontin was discontinued. On presentation, he had white blood cell count elevation at 19,000. Blood cultures were taken both on May 18 visit and again repeated on May 21 when he had a temperature spike up to 102.7. His temperatures then improved and again on May 22 he had a temperature spike up to 102.7 in the evening. His temperature has been normal today so far. The patient is awake and alert, but he appears somewhat lethargic. He has complained of pain in the ankle and left knee. Today, his white count is 16.7. He denies chest pain, chills, shortness of breath, nausea, vomiting, back pain, dysuria. He went for x-ray of the knee today and also CT scan of the chest today. Brain MRI from May 21 showed no evidence of acute intracranial pathology. An old left occipital infarct was noted. The patient recently underwent coronary bypass graft surgery at [facility] in February 2017 and after than he was treated for pneumonia. PAST MEDICAL HISTORY 1. Hypertension, 2. Coronary artery disease, 3. CVA, 4. Congestive heart failure, 5. Atrial fibrillation, 6. Diabetes mellitus, 7. Chronic kidney disease 8. Coronary artery bypass graft surgery ALLERGIES SULFA MEDICATIONS 1. Lasix. 2. Ferrous sulfate. 3. Insulin. 4. Allopurinol. 5. Digoxin. 6. Pepcid. 7. Aldactone. 8. Toprol XL. 9. Pravachol. 10. Cardizem. 11. Flomax. 12. Tylenol p.r.n. SOCIAL HISTORY No tobacco, no alcohol. No illicit drugs. FAMILY HISTORY Noncontributory. REVIEW OF SYSTEMS Pertinent as mentioned above in history of present illness. PHYSICAL EXAMINATION GENERAL: He is a well-developed male who is in no acute distress. He is awake, alert and oriented. VITAL SIGNS: Temperature 99.5, BP 137/69, respirations 18, heart rate 93. HEENT: Head atraumatic. Extraocular movements grossly intact, pupils reactive to light. No icterus. Oropharynx slightly dry mucosa. No visible lesions. NECK: Supple without adenopathy. LUNGS: Clear breath sounds bilateral. HEART: Irregular S1 and S2. No murmurs, rubs or gallops. Abdomen: Bowel sounds present, soft, no tenderness appreciated. RECTAL: Not performed. EXTREMITIES: The left knee has marked swelling and tenderness. No erythema visible. The remaining extremities have no clubbing, cyanosis or edema. No calf tenderness on palpation. SKIN: No diffuse rash. NEUROLOGIC: No gross focal findings. PSYCHIATRIC: The patient is calm and cooperative. LABORATORY DATA WBC 16.7, 63% neutrophils, 22% lymphocytes, 11% monocytes, platelet count 382, hemoglobin 10.6. Creatinine 1.90, BUN 29, estimated GFR 35. IMPRESSION 1. Fever of unknown origin. The patient is having temperature going up to 102 degrees. He also has elevated white blood cell count but does not appear to have left shift on his differential. 2. Altered mental status. 3. Profound generalized weakness. 4. Joint aches and now left knee swelling which probably may be due to left knee effusion. 5. Abnormal CT scan of the chest. The radiologist reading is not available yet, but it appears that he has maybe some pleural effusion bilateral. 6. Chronic kidney disease 7. Recent coronary bypass graft surgery. However, the patient denies chest pain and does not seem to have signs of infection related to the recent surgery. 8. Rule-out an arthritic cause of the fever versus drug fever. I do not see any drug on his medicine list that may be associated with the fever. RECOMMENDATIONS 1. Obtain another set of blood cultures 2. Obtain sedimentation rate 3. Obtain C-reactive protein. 4. Obtain TOI. 5. Obtain rheumatoid factor 6. Monitor the left knee x-ray. 7. Monitor the temperature and, if it goes up again today, consider starting antibiotic in the form of Zosyn preliminary. Thank you for this consultation. I will follow the patient's progress along with you and make further recommendations upon followup if necessary. Maile Geller MD FD/ /4:15 PM /5:15 PM MTDD
[2017-05-23] MEDS: TAMSULOSIN HCL 0.4 MG CAP PO SCH (20:59)
[2017-05-23 22:23] LABS: RHEUMATOID FACTOR SCREEN NEGATIVE (NEGATIVE)
[2017-05-24] VITALS (9 sets, daily range): BP systolic 115–148; BP diastolic 57–64; PULSE 60–110; RESP 18–20; TEMP 97.9–98.8; O2SAT 94–98
[2017-05-24] MEDS: INSULIN ASPART SUPPLEMENTAL SCALE SQ SCH ×4 (08:00→21:00)
--- NOTE | 2017-05-24 08:05 | PD.CARD.PN ---
Subjective Subjective Remarks No dyspnea. C/O foot pain Objective Medications Current Medications Medications (Trade) Dose Ordered Sig/Félix Route Start Time Stop Time Status Last Admin (Proair Hfa Inh) 1 puff Q4H PRN INH 05/20/17 20:00 (Zyloprim) 100 mg DAILY PO 05/21/17 09:00 05/23/17 09:24 (Lanoxin) 0.125 mg DAILY PO 05/21/17 09:00 05/23/17 09:24 (Cardizem) 90 mg QID PO 05/20/17 21:00 05/23/17 21:00 (Pepcid) 20 mg DAILY PO 05/21/17 09:00 05/23/17 09:24 (Aldactone) 12.5 mg DAILY PO 05/21/17 09:00 05/23/17 09:23 (Flomax) 0.4 mg HS PO 05/20/17 21:00 05/23/17 20:59 (Toprol Xl) 50 mg DAILY PO 05/21/17 09:00 05/23/17 09:24 (Pravachol) 80 mg DAILY PO 05/21/17 09:00 05/23/17 09:24 (NS Flush) 2 ml UNSCH PRN IV FLUSH 05/20/17 20:00 (NS Flush) 2 ml BID IV FLUSH 05/20/17 21:00 05/23/17 21:00 (Tylenol) 650 mg Q4H PRN PO 05/20/17 20:00 05/23/17 21:01 (Narcan Inj) 0.4 mg UNSCH PRN IV PUSH 05/20/17 20:00 (Jessica-Colace) 1 tab BID PO 05/20/17 21:00 05/23/17 20:59 (Milk Of Magnesia Liq) 30 ml Q12H PRN PO 05/20/17 20:00 (Senokot) 17.2 mg Q12H PRN PO 05/20/17 20:00 (Dulcolax Supp) 10 mg DAILY PRN RECTAL 05/20/17 20:00 (Lactulose Liq) 30 ml DAILY PRN PO 05/20/17 20:00 (Pill Splitter) 1 ea UNSCH PRN OTHER 05/20/17 20:15 (NovoLOG SUPPLEMENTAL SCALE) 1 ACHS SLIDING SCALE SQ 1/5/18 08:00 05/23/17 09:21 (Ferrous Sulfate) 325 mg BID@12,17 PO 05/22/17 17:00 05/23/17 18:34 (Citroma Liq) 300 ml ONCE ONCE PO 05/24/17 15:00 05/24/17 15:01 (Citroma Liq) 300 ml ONCE ONCE PO 05/24/17 09:00 05/24/17 09:01 (Lasix Inj) 40 mg BID@18 IV PUSH 05/23/17 09:00 05/23/17 18:35 Vital Signs / I&O Vital Signs Date Time Temp Pulse Resp B/P (MAP) Pulse Ox O2 Delivery O2 Flow Rate FiO2 05/24/17 04:00 98.1 98 18 137/60 (85) 98 05/24/17 04:00 71 05/24/17 00:00 98.8 70 18 136/61 (86) 94 05/24/17 00:00 71 05/23/17 20:00 99.2 88 18 133/60 (84) 97 05/23/17 20:00 72 05/23/17 18:32 76 05/23/17 16:36 3.00 05/23/17 16:05 98.9 75 18 122/65 (84) 95 05/23/17 12:31 99.5 93 18 137/69 (91) 93 05/23/17 12:00 82 05/23/17 11:04 91 Nasal Cannula 3.00 05/23/17 08:05 98.8 94 18 152/67 (95) 91 I/O 05/23/17 05/23/17 05/23/17 05/24/17 05/24/17 05/24/17 07:00 15:00 23:00 07:00 15:00 23:00 Intake Total 100 ml 480 ml 950 ml Output Total 500 ml 300 ml Balance -400 ml 480 ml 650 ml Intake Oral 100 ml 480 ml 950 ml Output Urine Total 500 ml 300 ml # Voids 2 # Bowel Movements 1 1 0 Physical Exam lungs clear rrr Laboratory Laboratory Tests Test 05/23/17 09:19 05/23/17 20:35 Blood Urea Nitrogen 29 MG/DL Creatinine 1.90 MG/DL Random Glucose 128 MG/DL Calcium Level 9.0 MG/DL Sodium Level 136 MEQ/L Potassium Level 4.4 MEQ/L Chloride Level 99 MEQ/L Carbon Dioxide Level 30.4 MEQ/L Anion Gap 7 MEQ/L Estimat Glomerular Filtration Rate 35 ML/MIN Erythrocyte Sedimentation Rate 47 mm/hr C-Reactive Protein 21.00 MG/DL Rheumatoid Factor Screen NEGATIVE Rheumatoid Factor Titer IU/ML Assessment and Plan Assessment and Plan Will recheck Cxr in AM Huy Mcgregor MD May 24, 2017 08:05
[2017-05-24] MEDS ORDERED: oxyCODONE/ACETAMINOPHEN 5 MG/325 MG TAB PO PRN (08:15)
[2017-05-24 08:29] LABS: AUTOMATED NEUTROPHIL # 7.5 TH/MM3 (1.8-7.7); BASOPHIL # 0.1 TH/MM3 (0-0.2); EOSINOPHIL # 0.3 TH/MM3 (0-0.4); EOSINOPHIL % 2.2 % (0.0-4.0); HEMATOCRIT 31.3 % (39.0-51.0); HEMOGLOBIN 10.3 GM/DL (13.0-17.0); LYMPH % 28.5 % (9.0-44.0); LYMPHOCYTE # 3.7 TH/MM3 (1.0-4.8); MEAN CELL VOLUME 78.8 FL (80.0-100.0); MEAN CORPUSCULAR HEMOGLOBIN 25.8 PG (27.0-34.0); MEAN CORPUSCULAR HGB CONC 32.7 % (32.0-36.0); MEAN PLATELET VOLUME 6.9 FL (7.0-11.0); MONO % 10.8 % (0.0-8.0); MONOCYTE # 1.4 TH/MM3 (0-0.9); NEUT % 57.5 % (16.0-70.0); PLATELET COUNT 385 TH/MM3 (150-450); RED BLOOD COUNT 3.97 MIL/MM3 (4.50-5.90); RED CELL DISTRIBUTION WIDTH 18.4 % (11.6-17.2); WHITE BLOOD COUNT 13.1 TH/MM3 (4.0-11.0)
[2017-05-24 08:36] LABS: INTERNATIONAL NORMALIZED RATIO 1.3 RATIO; PROTHROMBIN TIME - PATIENT 13.2 SEC (9.8-11.6)
[2017-05-24 08:56] LABS: BICARBONATE 27.8 MEQ/L (21.0-32.0); CALCIUM 9.2 MG/DL (8.5-10.1); CREATININE 1.81 MG/DL (0.60-1.30); MAGNESIUM 2.6 MG/DL (1.5-2.5)
[2017-05-24] MEDS ORDERED: MAGNESIUM CITRATE SOLN 300 ML BTL PO ONE ×2 (09:00→15:00)
[2017-05-24] MEDS: FAMOTIDINE 20 MG TAB PO SCH (10:10)
[2017-05-24] MEDS: DOCUSATE SODIUM 50 MG/SENNA 8.6 MG TAB PO SCH ×2 (10:10→22:00)
[2017-05-24] MEDS: ACETAMINOPHEN 325 MG TAB PO PRN ×2 (10:10→14:40)
[2017-05-24] MEDS: SPIRONOLACTONE 25 MG TAB PO SCH (10:10)
[2017-05-24] MEDS: ALLOPURINOL 100 MG TAB PO SCH (10:10)
[2017-05-24] MEDS: METOPROLOL SUCCINATE 50 MG EXTENDED RELEASE TAB PO SCH (10:10)
[2017-05-24] MEDS: DIGOXIN 0.125 MG TAB PO SCH (10:10)
[2017-05-24] MEDS: DILTIAZEM HCL 60 MG TAB PO SCH ×4 (10:11→22:00)
[2017-05-24] MEDS: PRAVASTATIN SOD 80 MG TAB PO SCH (10:11)
[2017-05-24] MEDS: FUROSEMIDE 40 MG/4 ML VIAL IV PUSH SCH ×2 (10:11→19:05)
[2017-05-24] MEDS: SODIUM CHLORIDE 0.9% FLUSH 10 ML FLUSH IV FLUSH SCH ×2 (10:14→22:00)
--- NOTE | 2017-05-24 11:18 | RADRPT ---
EXAM DATE/TIME: 05/24/2017 10:30 [facility] COMPARISON: CT THORAX W/O CONTRAST, May 23, 2017, 15:10. CHEST PA & LAT, May 22, 2017, 8:37. CHEST SING LE AP, May 20, 2017, 17:58. INDICATIONS : Status post thoracentesis. MEDICAL HISTORY : Hypertension. Cardiovascular disease Cerebrovascular disease. SURGICAL HISTORY : CABG. ENCOUNTER: Subsequent ACUITY: 1 day PAIN SCORE: 3/10 LOCATION: Bilateral chest FINDINGS: Median sternotomy wires are noted status post cardiac surgery. The heart is enlarged. The lungs are s table compared to previous examination. Discoid atelectasis is noted within the mid lung rodriguez bilat erally. Tiny bilateral pleural effusions are noted. CONCLUSION: No significant change compared to 05/22/17. Nir Ayala MD on May 24, 2017 at 11:14 Board Certified Radiologist. This report was verified electronically.
--- NOTE | 2017-05-24 11:24 | PD.ORT.PN ---
Subjective Subjective Remarks Consult for left knee effusion and pain for 2 weeks. Ruling out infection. Patient has had elevated white blood cell count. He states he had fallen proximally 2 weeks ago twice and consent is had some tenderness and swelling to the knee. Objective Vitals Vital Signs Date Time Temp Pulse Resp B/P (MAP) Pulse Ox O2 Delivery O2 Flow Rate FiO2 05/24/17 08:05 98.4 77 20 118/57 (77) 98 05/24/17 08:00 110 05/24/17 04:00 98.1 98 18 137/60 (85) 98 05/24/17 04:00 71 05/24/17 00:00 98.8 70 18 136/61 (86) 94 05/24/17 00:00 71 05/23/17 20:00 99.2 88 18 133/60 (84) 97 05/23/17 20:00 72 05/23/17 18:32 76 05/23/17 16:36 3.00 05/23/17 16:05 98.9 75 18 122/65 (84) 95 05/23/17 12:31 99.5 93 18 137/69 (91) 93 05/23/17 12:00 82 I/O 05/23/17 05/23/17 05/23/17 05/24/17 05/24/17 05/24/17 07:00 15:00 23:00 07:00 15:00 23:00 Intake Total 100 ml 480 ml 950 ml Output Total 500 ml 300 ml Balance -400 ml 480 ml 650 ml Intake Oral 100 ml 480 ml 950 ml Output Urine Total 500 ml 300 ml # Voids 2 # Bowel Movements 1 1 0 Result Diagram: 05/24/17 0800 05/24/17 0800 Other Results Laboratory Tests Test 05/24/17 08:00 Prothromb Time International Ratio 1.3 RATIO Prothrombin Time 13.2 SEC (9.8-11.6) Procedures After informed consent left knee aspiration is performed. Left knee is sterilely prepped with alcohol and ChloraPrep and a 20-gauge spinal needle is used through superior lateral approach and a 40 cc of straw-colored synovial fluid is withdrawn. Patient tolerates procedure well. Sterile bandages placed upon it. Samples are sent to lab Objective Remarks Examination of the left lower extremity reveals no pain with hip range of motion. Knee range of motion is from 5 short of extension to 60. He has significant swelling superior to the knee and has tenderness over both medial and lateral compartments and posterior to patella. Is moderate tenderness to palpation of the lateral collateral ligament. No tenderness over the medial collateral ligament. Skin is intact and no erythema or drainage Distally he has intact sensation good capillary refills and strong dorsiflexion plantar flexion of foot. Assessment & Plan Assessment and Plan Left knee effusion 40 cc of straw-colored synovial fluid is aspirated and sent to the lab for: stat cell count with differential, Gram stain and culture and crystal studies. Fluid does appear to be gout-like in color. When stat cell count is obtained continuation of care will be decided. They may discontinue Band-Aid over aspiration in 2 days. Irvin Ervin Jr. May 24, 2017 11:24
--- NOTE | 2017-05-24 12:33 | MB ---
cc: CARY ORNELAS M.D. DATE OF CONSULTATION: 05/24/2017 REASON FOR CONSULTATION: History of stroke. HISTORY OF PRESENT ILLNESS: Mr. Vergara is a very nice 76-year-old man who has a history of a CABG procedure done in February. He was admitted also with mental status change as well as lower extremity edema due to congestive heart failure and confusion. He has a history of previous occipital lobe stroke in the past during his admission in February,. The patient denies any new focal neurologic deficits. PAST MEDICAL HISTORY: 1. He has atrial fibrillation. 2. Congestive heart failure. 3. CABG procedure in February of 2017. 4. Anemia. 5. Type 2 diabetes. 6. Coronary artery disease. CURRENT MEDICATIONS: His current medications are: 1. Magnesium. 2. Oxycodone for pain. 3. Lasix. 4. Iron sulfate. 5. Digoxin. 6. Pepcid. 7. Pravachol. 8. Cardizem. 9. Flomax. NEUROLOGICAL EXAMINATION: VITAL SIGNS: Blood pressure 118/57, pulse 77, respiratory rate is 20, temperature is 98 degrees. HIGHER CORTICAL FUNCTIONS: He is alert, oriented x2. He follows commands. Speech is fluent. CRANIAL NERVES: Cranial nerves intact. I do not find any gross visual field cut. MOTOR EXAM: On motor exam, he has 5/5 strength of all groups in both upper and lower extremities. He has some mild diminished fine motor skills in the right hand and a mild right upper extremity drift. REFLEXES: Reflexes are symmetric. IMAGING STUDIES: MRI of the brain shows old left occipital stroke. No acute change. LABORATORY DATA: White count 13,100, hemoglobin 10.3, hematocrit 31%, platelets 385,000. Sedimentation rate is 47. Sodium is 135, potassium 4.4, chloride 98, CO2 is 27.8, creatinine 28. INR 1.3, PT 13.2. Previously INR was 2.5. PT 24.9. EKGS: EKG shows atrial fibrillation. IMPRESSION Old left occipital stroke. There is no evidence of any new stroke on the MRI. RECOMMENDATIONS: Resume anticoagulation when medically able to do so. MD ASHVIN Pearson/STEVE /11:46 AM /12:11 PM
[2017-05-24] MEDS: FERROUS SULFATE 325 MG (65 MG ELEMENTAL IRON) TAB PO SCH ×2 (12:46→19:04)
[2017-05-24 13:01] LABS: WBC, SYNOVIAL FLUID 18750 /MM3 (0-200)
--- NOTE | 2017-05-24 13:15 | RADRPT ---
EXAM DATE/TIME: 05/24/2017 10:37 [facility] COMPARISON: No previous studies available for comparison. INDICATIONS : Right pleural effusion. MEDICAL HISTORY : Myocardial infarction. Hypercholesterolemia. Gastroesophageal reflux disease. Right pleural effusion. CVA. CHF. Hypertension. A-fib. COPD. Ulcer. Hiatal hernia. SURGICAL HISTORY : CABG. ENCOUNTER: Initial ACUITY: 1 day PAIN SCORE: 1/10 LOCATION: Right chest MEASUREMENTS: SKIN TO PARIETAL PLEURA: Inadequate fluid SKIN TO MAX SAFE DEPTH: Inadequate fluid ESTIMATED FLUID VOLUME: 176 cc FLUID COMPOSITION: simple FINDINGS: No marking was performed. CONCLUSION: 1. Small right effusion Huy Wright MD on May 24, 2017 at 13:13 Board Certified Radiologist. This report was verified electronically.
--- NOTE | 2017-05-24 14:17 | PD.ORT.PN ---
Subjective Subjective Remarks Consult for left knee effusion and pain for 2 weeks. Ruling out infection. Patient has had elevated white blood cell count. He states he had fallen proximally 2 weeks ago twice and consent is had some tenderness and swelling to the knee. Objective Vitals Vital Signs Date Time Temp Pulse Resp B/P (MAP) Pulse Ox O2 Delivery O2 Flow Rate FiO2 05/24/17 13:14 Nasal Cannula 3.00 05/24/17 12:05 98.4 85 20 115/59 (77) 95 05/24/17 10:30 Nasal Cannula 3.00 05/24/17 08:05 98.4 77 20 118/57 (77) 98 05/24/17 08:00 110 05/24/17 04:00 98.1 98 18 137/60 (85) 98 05/24/17 04:00 71 05/24/17 00:00 98.8 70 18 136/61 (86) 94 05/24/17 00:00 71 05/23/17 20:00 99.2 88 18 133/60 (84) 97 05/23/17 20:00 72 05/23/17 18:32 76 05/23/17 16:36 3.00 05/23/17 16:05 98.9 75 18 122/65 (84) 95 I/O 05/23/17 05/23/17 05/23/17 05/24/17 05/24/17 05/24/17 07:00 15:00 23:00 07:00 15:00 23:00 Intake Total 100 ml 480 ml 950 ml Output Total 500 ml 300 ml Balance -400 ml 480 ml 650 ml Intake Oral 100 ml 480 ml 950 ml Output Urine Total 500 ml 300 ml # Voids 2 # Bowel Movements 1 1 0 Result Diagram: 05/24/17 0800 05/24/17 0800 Other Results Laboratory Tests Test 05/24/17 08:00 Prothromb Time International Ratio 1.3 RATIO Prothrombin Time 13.2 SEC (9.8-11.6) Imaging Last 24 hours Impressions Chest X-Ray 05/24/17 0000 Signed Impressions: Service Date/Time: Wednesday, May 24, 2017 10:30 - CONCLUSION: No significant change compared to 05/22/17. Nir Ayala MD Chest Ultrasound 05/24/17 0000 Signed Impressions: Service Date/Time: Wednesday, May 24, 2017 10:37 - CONCLUSION: 1. Small right effusion Huy Wright MD Procedures After informed consent left knee aspiration is performed. Left knee is sterilely prepped with alcohol and ChloraPrep and a 20-gauge spinal needle is used through superior lateral approach and a 40 cc of straw-colored synovial fluid is withdrawn. Patient tolerates procedure well. Sterile bandages placed upon it. Samples are sent to lab Objective Remarks Examination of the left lower extremity reveals no pain with hip range of motion. Knee range of motion is from 5 short of extension to 60. He has significant swelling superior to the knee and has tenderness over both medial and lateral compartments and posterior to patella. Is moderate tenderness to palpation of the lateral collateral ligament. No tenderness over the medial collateral ligament. Skin is intact and no erythema or drainage Distally he has intact sensation good capillary refills and strong dorsiflexion plantar flexion of foot. Assessment & Plan Assessment and Plan Left knee effusion 40 cc of straw-colored synovial fluid is aspirated and sent to the lab for: stat cell count with differential, Gram stain and culture and crystal studies. Fluid does appear to be gout-like in color. When stat cell count is obtained continuation of care will be decided. They may discontinue Band-Aid over aspiration in 2 days Addendum: synovial fluid is consistent with gout. Medical management and PT for ROM of knee. WBAT Irvin Sanz Jr. May 24, 2017 14:17
--- NOTE | 2017-05-24 16:25 | HHI.PR ---
Subjective Remarks Patient reports feeling, "ok." continues to have pain L knee Objective Vitals Vital Signs Date Time Temp Pulse Resp B/P (MAP) Pulse Ox O2 Delivery O2 Flow Rate FiO2 05/24/17 15:44 3.00 05/24/17 14:56 Nasal Cannula 3.00 05/24/17 13:14 Nasal Cannula 3.00 05/24/17 12:05 98.4 85 20 115/59 (77) 95 05/24/17 10:30 Nasal Cannula 3.00 05/24/17 08:05 98.4 77 20 118/57 (77) 98 05/24/17 08:00 110 05/24/17 04:00 98.1 98 18 137/60 (85) 98 05/24/17 04:00 71 05/24/17 00:00 98.8 70 18 136/61 (86) 94 05/24/17 00:00 71 05/23/17 20:00 99.2 88 18 133/60 (84) 97 05/23/17 20:00 72 05/23/17 18:32 76 05/23/17 16:36 3.00 Result Diagram: 05/24/17 0800 05/24/17 0800 Other Results Laboratory Tests Test 05/22/17 04:15 05/22/17 05:18 05/22/17 19:28 05/23/17 09:19 Urine Color YELLOW Urine Turbidity CLEAR Urine pH 7.0 Urine Specific [place] 1.015 Urine Protein 30 mg/dL Urine Glucose (UA) NEG mg/dL Urine Ketones NEG mg/dL Urine Occult Blood SMALL Urine Nitrite NEG Urine Bilirubin NEG Urine Urobilinogen LESS THAN 2.0 MG/DL Urine Leukocyte Esterase NEG Urine RBC 20 /hpf Urine WBC 1 /hpf Microscopic Urinalysis Comment CULT NOT INDICATED White Blood Count 14.8 TH/MM3 16.7 TH/MM3 Red Blood Count 3.29 MIL/MM3 4.13 MIL/MM3 Hemoglobin 8.3 GM/DL 10.6 GM/DL Hematocrit 25.6 % 32.3 % Mean Corpuscular Volume 77.7 FL 78.1 FL Mean Corpuscular Hemoglobin 25.3 PG 25.6 PG Mean Corpuscular Hemoglobin Concent 32.5 % 32.8 % Red Cell Distribution Width 18.4 % 18.6 % Platelet Count 380 TH/MM3 382 TH/MM3 Mean Platelet Volume 6.9 FL 7.0 FL Neutrophils (%) (Auto) 53.9 % 63.9 % Lymphocytes (%) (Auto) 30.6 % 22.8 % Monocytes (%) (Auto) 13.8 % 11.3 % Eosinophils (%) (Auto) 1.1 % 1.3 % Basophils (%) (Auto) 0.6 % 0.7 % Neutrophils # (Auto) 8.0 TH/MM3 10.7 TH/MM3 Lymphocytes # (Auto) 4.5 TH/MM3 3.8 TH/MM3 Monocytes # (Auto) 2.0 TH/MM3 1.9 TH/MM3 Eosinophils # (Auto) 0.2 TH/MM3 0.2 TH/MM3 Basophils # (Auto) 0.1 TH/MM3 0.1 TH/MM3 CBC Comment DIFF FINAL DIFF FINAL Differential Comment Prothrombin Time 21.6 SEC Prothromb Time International Ratio 2.1 RATIO Blood Urea Nitrogen 28 MG/DL 29 MG/DL Creatinine 2.25 MG/DL 1.90 MG/DL Random Glucose 125 MG/DL 128 MG/DL Calcium Level 8.7 MG/DL 9.0 MG/DL Magnesium Level 2.2 MG/DL Sodium Level 134 MEQ/L 136 MEQ/L Potassium Level 4.1 MEQ/L 4.4 MEQ/L Chloride Level 99 MEQ/L 99 MEQ/L Carbon Dioxide Level 29.3 MEQ/L 30.4 MEQ/L Anion Gap 6 MEQ/L 7 MEQ/L Estimat Glomerular Filtration Rate 29 ML/MIN 35 ML/MIN Ferritin 437 NG/ML Ammonia LESS THAN 10 MCMOL/L B-Type Natriuretic Peptide 451 PG/ML Vitamin B12 Level 517 PG/ML Folate GREATER THAN 20.0 NG/ML Free Thyroxine 1.31 NG/DL Thyroid Stimulating Hormone 3rd Gen 3.010 uIU/ML Rapid Plasma Reagin NON-REACTIVE Test 05/23/17 20:35 05/24/17 08:00 05/24/17 10:07 05/24/17 10:50 Erythrocyte Sedimentation Rate 47 mm/hr C-Reactive Protein 21.00 MG/DL Rheumatoid Factor Screen NEGATIVE Rheumatoid Factor Titer IU/ML White Blood Count 13.1 TH/MM3 Red Blood Count 3.97 MIL/MM3 Hemoglobin 10.3 GM/DL Hematocrit 31.3 % Mean Corpuscular Volume 78.8 FL Mean Corpuscular Hemoglobin 25.8 PG Mean Corpuscular Hemoglobin Concent 32.7 % Red Cell Distribution Width 18.4 % Platelet Count 385 TH/MM3 Mean Platelet Volume 6.9 FL Neutrophils (%) (Auto) 57.5 % Lymphocytes (%) (Auto) 28.5 % Monocytes (%) (Auto) 10.8 % Eosinophils (%) (Auto) 2.2 % Basophils (%) (Auto) 1.0 % Neutrophils # (Auto) 7.5 TH/MM3 Lymphocytes # (Auto) 3.7 TH/MM3 Monocytes # (Auto) 1.4 TH/MM3 Eosinophils # (Auto) 0.3 TH/MM3 Basophils # (Auto) 0.1 TH/MM3 CBC Comment DIFF FINAL Differential Comment Prothrombin Time 13.2 SEC Prothromb Time International Ratio 1.3 RATIO Blood Urea Nitrogen 28 MG/DL Creatinine 1.81 MG/DL Random Glucose 119 MG/DL Calcium Level 9.2 MG/DL Magnesium Level 2.6 MG/DL Sodium Level 135 MEQ/L Potassium Level 4.4 MEQ/L Chloride Level 98 MEQ/L Carbon Dioxide Level 27.8 MEQ/L Anion Gap 9 MEQ/L Estimat Glomerular Filtration Rate 37 ML/MIN Synovial Fluid Color YELLOW Synovial Fluid Appearance MODERATE Synovial Fluid WBC 47475 /MM3 Synovial Fluid RBC 500 /MM3 Synovial Fluid Neutrophils 92 % Synovial Fluid Lymphocytes 0 % Synovial Fluid Monocytes 8 % Synovial Fluid Crystals POS - URIC ACID Test 05/24/17 13:45 Activated Partial Thromboplast Time 37.8 SEC Lactate Dehydrogenase 170 U/L Total Protein 6.0 GM/DL Imaging Last Impressions Brain MRI 05/21/17 0000 Signed Impressions: Service Date/Time: May 08:55 - CONCLUSION: 1. No evidence of acute intracranial pathology. No masses are identified. 2. Old left occipital infarct Huy Wright MD Wrist X-Ray 05/20/17 0000 Signed Impressions: Service Date/Time: Saturday, May 20, 2017 20:32 - CONCLUSION: Chronic changes and no evidence for acute fracture. Rubi Eckert MD Foot X-Ray 05/20/17 0000 Signed Impressions: Service Date/Time: Saturday, May 20, 2017 20:21 - CONCLUSION: Chronic changes and no evidence for acute fracture. Rubi Eckert MD Chest X-Ray 05/20/17 0000 Signed Impressions: Service Date/Time: Saturday, May 20, 2017 17:58 - CONCLUSION: Slight CHF. K. Juan Miguel Eckert MD Objective Remarks GENERAL: This is a well-nourished, well-developed patient, in no apparent distress. CARDIOVASCULAR: Regular rate and rhythm without murmurs, gallops, or rubs. RESPIRATORY: Clear to auscultation. Breath sounds equal bilaterally. No wheezes , rales, or rhonchi. GASTROINTESTINAL: Abdomen soft, non-tender, nondistended. Normal active bowel sounds MUSCULOSKELETAL: pain with passive flexion of left knee. Swelling noted at left knee, but NO erythema or increased warmth. NEURO: Alert & Oriented x4 to person, place, time, situation. Moves all ext x4 A/P Problem List: (1) Fever, recurrent ICD Codes: A68.9 - Relapsing fever, unspecified Status: Acute Plan: - unclear etiology - temp: - 102.7F (05/21) at Noon - 102.7F (05/22) at 8PM - 99.5F (05/23) at 12:30PM - WBC 19.1 (05/20), 16.7 (05/23) - UA negative - CXR --> CHF, but NO evidence of pneumonia - NO c/o cough or dysuria - Case d/w ID, Dr. Mcdonald - obtain CT chest, CABG 02/2017 - CT chest reviewed and reveals: Moderated bilateral effusions which may be in part loculated in the upper lobes - US chest reveals small effusion right side approximately 176ml, not enough to drain via thoracentesis - Left knee x-ray reviewed and reveals effusion - per ID monitor temp if temp goes up again, consider starting antibiotic in the form of Zosyn (2) Iron deficiency anemia ICD Codes: D50.9 - Iron deficiency anemia, unspecified Status: Acute Plan: - comgmt with GI - Pt on therapeutic on Coumadin for Afib, INR 2.5 (05/20/17) -> 2.1 (05/22) - Pt presented with c/o worsening generalized weakness and falls at home - Hg 9.2 (05/20/17), 7.5 (05/21/17), 8.3 (05/22/17), 10.6 (05/22) , 10.3 (05/24) - iron indices show iron deficiency - ferrous sulfate PO BID per GI - serum iron 14 (05/21/17) - transfused 2 units PRBCs (05/22/17) - repeat CBC in AM - stool Hemoccult neg 05/23 - plan EGD/Colonoscopy 05/25/17 (3) CHF (congestive heart failure) ICD Codes: I50.9 - Heart failure, unspecified Status: Acute Plan: - comanagement Cardiology - BNP 344 (05/20/17) -> 451 (05/22/17) - CXR (05/20/17) --> mild CHF - lasix changed to IV per cardiology - repeat CXR reveals: cardiomegaly and CHF - DVT prophylaxis (4) Change in mental status ICD Codes: R41.82 - Altered mental status, unspecified Status: Acute Plan: - MRI brain (05/21/17) --> old left infarct, no acute findings - clinically pt seemed A&O x 3, likely at baseline - MRI brain (05/22) --> old left occipital infarct - Case d/w pt's daughters bedside. Pt had CVA during admission for CABG Feb 2017 and increased confusion since - obtain TSH, free T4, b12, RPR, ammonia --> WNL (5) Gait difficulty ICD Codes: R26.9 - Unspecified abnormalities of gait and mobility Status: Acute Plan: - MRI brain (05/21) --> no acute findings - PT recommending rehab at time of DC - possibly d/t underlying anemia (6) Right foot pain ICD Codes: M79.671 - Pain in right foot Status: Acute Plan: - right foot xray --> NO acute findings - now c/o right ankle pain, obtain plain films (7) Atrial fibrillation, chronic ICD Codes: I48.2 - Chronic atrial fibrillation Status: Chronic Plan: - INR 2.5 (05/20) - stable HR - digoxin, metoprolol, cardizem 90mg q6h (8) DM2 (diabetes mellitus, type 2) ICD Codes: E11.9 - Type 2 diabetes mellitus without complications Status: Chronic Plan: - accuchecks ACHS with SSI (9) CAD (coronary artery disease) ICD Codes: I25.10 - Atherosclerotic heart disease of [place] coronary artery without angina pectoris Status: Chronic Plan: - s/p CABG Feb 2017 - ASA, metoprolol, pravachol (10) Knee pain, left ICD Codes: M25.562 - Pain in left knee Status: Acute Plan: - Left knee x-ray reviewed and reveals effusion - orthopedic surgery consulted - s/p aspiration left knee 05/24. Aspirate reveals uric acid - will start colchicine (11) Generalized weakness ICD Codes: R53.1 - Weakness Status: Acute Plan: - PT - Pt will need SNF upon discharge Assessment and Plan Patient examined. Assessment and plan formulated with Cherelle Benjamin PA-C. I agree with the above. Problem Qualifiers (1) Iron deficiency anemia: Qualified Codes: D50.9 - Iron deficiency anemia, unspecified (2) CHF (congestive heart failure): (3) DM2 (diabetes mellitus, type 2): Qualified Codes: E11.8 - Type 2 diabetes mellitus with unspecified complications; Z79.4 - technician terminal and repeater (current) use of insulin (4) CAD (coronary artery disease): Qualified Codes: I25.10 - Atherosclerotic heart disease of [place] coronary artery without angina pectoris (5) Knee pain, left: Qualified Codes: M25.562 - Pain in left knee Cherelle Benjamin May 24, 2017 16:25 Saleem Castillo DO May 28, 2017 01:16
--- NOTE | 2017-05-24 17:10 | ECHRPT ---
Indication: Heart failure, unspecified CONCLUSIONS The left ventricular systolic function is low normal with an estimated ejection fraction in the rang e of 50- 55%. Wall thickness is measured at the upper limits of normal. Normal left ventricular size. [id number] mitral valve regurgitation. Mild mitral annular calcification. There is mild tricuspid valve regurgitation. The estimated pulmonary arterial pressure is 33.8 mmHg. Diffuse calcification of the aortic valve. BP: 137 / 60 HR: 85 Rhythm: Other MEASUREMENTS (Male / Female) Normal Values Technical Quality:Good 2D ECHO LV Diastolic Diameter PLAX 4.3 cm 4.2 - 5.9 / 3.9 - 5.3 cm LV Systolic Diameter PLAX 3.4 cm IVS Diastolic Thickness 1.0 cm 0.6 - 1.0 / 0.6 - 0.9 cm LVPW Diastolic Thickness 1.0 cm 0.6 - 1.0 / 0.6 - 0.9 cm LV Relative Wall Thickness 0.5 LVOT Diameter 2.1 cm M-MODE Aortic Root Diameter MM 3.4 cm LA Systolic Diameter MM 3.7 cm LA Ao Ratio MM 1.1 AV Cusp Separation MM 2.4 cm DOPPLER AV Peak Velocity 160.0 cm/s AV Peak Gradient 10.2 mmHg LVOT Peak Velocity 101.0 cm/s LVOT Peak Gradient 4.1 mmHg AV Area Cont Eq pk 2.2 cm MR Peak Velocity 488.0 cm/s MR Peak Gradient 95.3 mmHg TR Peak Velocity 244.0 cm/s TR Peak Gradient 23.8 mmHg Right Atrial Pressure 10.0 mmHg Pulmonary Artery Systolic Pressu 33.8 mmHg Right Ventricular Systolic Press 33.8 mmHg PV Peak Velocity 148.0 cm/s PV Peak Gradient 8.8 mmHg FINDINGS LEFT VENTRICLE The left ventricular systolic function is low normal with an estimated ejection fraction in the rang e of 50- 55%. Wall thickness is measured at the upper limits of normal. Normal left ventricular size. RIGHT VENTRICLE Normal right ventricular size and systolic function. LEFT ATRIUM The left atrial size is normal. RIGHT ATRIUM The right atrial size is normal. ATRIAL SEPTUM Normal atrial septal thickness without atrial level shunting by limited color doppler interrogation. AORTA The aortic root and proximal ascending aorta are normal in size on limited imaging. MITRAL VALVE [id number] mitral valve regurgitation. Mild mitral annular calcification. AORTIC VALVE Diffuse calcification of the aortic valve. TRICUSPID VALVE There is mild tricuspid valve regurgitation. The estimated pulmonary arterial pressure is 33.8 mmHg. PULMONARY VALVE No pulmonary valve regurgitation or stenosis. VESSELS The inferior vena cava is normal in size. PERICARDIUM No pericardial effusion. Wayne Graham MD (Electronically Signed) Final Date:24 May 2017 17:09
[2017-05-24] MEDS: TAMSULOSIN HCL 0.4 MG CAP PO SCH (22:00)
[2017-05-24] MEDS: COLCHICINE 0.6 MG TAB PO SCH (22:01)
[2017-05-25] VITALS (9 sets, daily range): BP systolic 103–160; BP diastolic 54–73; PULSE 71–104; RESP 16–20; TEMP 97.5–98.8; O2SAT 92–100
--- NOTE | 2017-05-25 06:37 | RADRPT ---
EXAM DATE/TIME: 05/25/2017 06:08 [facility] COMPARISON: CHEST SINGLE AP, May 24, 2017, 10:30. INDICATIONS : Short of breath, evaluate congestive heart failure MEDICAL HISTORY : Hypertension. Cardiovascular disease. Cerebrovascular disease. CHF SURGICAL HISTORY : CABG. ENCOUNTER: Subsequent ACUITY: 4 - 6 days PAIN SCORE: 0/10 LOCATION: Bilateral chest FINDINGS: The cardiac silhouette is normal in transverse diameter. Median sternotomy wires are present. There i s subsegmental atelectasis in the both bases. No pleural effusions are identified. There is pleural thickening along the left lateral chest wall. CONCLUSION: 1. Cardiomegaly. Subsegmental atelectasis both bases.. Huy Wright MD on May 25, 2017 at 6:35 Board Certified Radiologist. This report was verified electronically.
--- NOTE | 2017-05-25 07:04 | PD.ORT.PN ---
Subjective Subjective Remarks Des is a 76-year-old male with history of left knee pain. Left knee was aspirated on 05/24/17. Aspirate was positive for crystals. Cell count appeared negative for infection. His knee pain is improving. Objective Vitals Vital Signs Date Time Temp Pulse Resp B/P (MAP) Pulse Ox O2 Delivery O2 Flow Rate FiO2 05/25/17 04:00 84 05/25/17 00:00 81 05/25/17 00:00 98.8 83 16 136/65 (88) 92 05/24/17 21:00 Nasal Cannula 3.00 05/24/17 20:13 97.9 80 18 137/64 (88) 97 05/24/17 17:00 Nasal Cannula 3.00 05/24/17 16:05 98.5 60 18 148/60 (89) 96 05/24/17 16:00 98 05/24/17 15:44 3.00 05/24/17 14:56 Nasal Cannula 3.00 05/24/17 13:14 Nasal Cannula 3.00 05/24/17 12:05 98.4 85 20 115/59 (77) 95 05/24/17 12:00 98 05/24/17 10:30 Nasal Cannula 3.00 05/24/17 08:05 98.4 77 20 118/57 (77) 98 05/24/17 08:00 110 I/O 05/24/17 05/24/17 05/24/17 05/25/17 05/25/17 05/25/17 07:00 15:00 23:00 07:00 15:00 23:00 Intake Total 950 ml 380 ml Output Total 300 ml Balance 650 ml 380 ml Intake Oral 950 ml 380 ml Output Urine Total 300 ml # Voids 4 # Bowel Movements 0 6 Result Diagram: 05/24/17 0800 05/24/17 0800 Other Results Laboratory Tests Test 05/24/17 08:00 Prothromb Time International Ratio 1.3 RATIO Prothrombin Time 13.2 SEC (9.8-11.6) Imaging Last 24 hours Impressions Chest X-Ray 05/24/17 0000 Signed Impressions: Service Date/Time: Wednesday, May 24, 2017 10:30 - CONCLUSION: No significant change compared to 05/22/17. Nir Ayala MD Chest Ultrasound 05/24/17 0000 Signed Impressions: Service Date/Time: Wednesday, May 24, 2017 10:37 - CONCLUSION: 1. Small right effusion Huy Wright MD Procedures After informed consent left knee aspiration is performed. Left knee is sterilely prepped with alcohol and ChloraPrep and a 20-gauge spinal needle is used through superior lateral approach and a 40 cc of straw-colored synovial fluid is withdrawn. Patient tolerates procedure well. Sterile bandages placed upon it. Samples are sent to lab Objective Remarks Examination of the left lower extremity reveals no pain with hip or ankle range of motion. Knee range of motion is from 5 to 80. He has moderate swelling superior to the knee and has tenderness over both medial and lateral compartments and posterior to patella. Skin is intact and no erythema or drainage Distally he has intact sensation good capillary refills and strong dorsiflexion plantar flexion of foot. Assessment & Plan Assessment and Plan Left knee effusion--appears to be gout Cultures pending Continue Medical management and PT for ROM of knee. MINNIE MANICLLA also saw and examined this patient. History, past medical history, social history, review of systems, physical exam, radiographs, assessment, and plan were also reviewed. Plan on nonoperative treatment. A mid-level provider in my office (nurse practitioner or physician asset protection assistant) may see this patient on follow-up visits and continue to implement the objectives of this plan including : Starting or adjusting medications, injections, cast application, orthotics, brace application, physical therapy, radiological studies (including x-ray, MRI , CT, ultrasound, bone scan), vascular studies, neurologic studies, specialist consultation, and proceeding with surgical management, as appropriate. Carlos Barrow MD May 25, 2017 07:04
[2017-05-25] MEDS ORDERED: POVIDONE IODINE 5% (ANTISEPSIS KIT) 4 APPLICATIONS EACH NARE PRN (07:15)
[2017-05-25] MEDS ORDERED: SODIUM CHLORID 0.9% 500 ML IV PRN (07:15)
[2017-05-25] MEDS ORDERED: CHLORHEXIDINE GLUCONATE 2 % 1 PACK (2 CLOTHS) TOPICAL PRN (07:15)
[2017-05-25] MEDS ORDERED: LACTATED RINGER'S 1000 ML IV PRN (07:15)
--- NOTE | 2017-05-25 07:37 | PD.CARD.PN ---
Subjective Subjective Remarks The patient denies any chest pain or shortness of breath. He noticed that his heart was a little fast on his vital checks this morning, but denies any palpitations. Complains of pain in his legs, seen by orthopedics. Objective Medications Current Medications Medications (Trade) Dose Ordered Sig/Félix Route Start Time Stop Time Status Last Admin (Proair Hfa Inh) 1 puff Q4H PRN INH 05/20/17 20:00 (Lanoxin) 0.125 mg DAILY PO 05/21/17 09:00 05/24/17 10:10 (Cardizem) 90 mg QID PO 05/20/17 21:00 05/24/17 22:00 (Pepcid) 20 mg DAILY PO 05/21/17 09:00 05/24/17 10:10 (Aldactone) 12.5 mg DAILY PO 05/21/17 09:00 05/24/17 10:10 (Flomax) 0.4 mg HS PO 05/20/17 21:00 05/24/17 22:00 (Toprol Xl) 50 mg DAILY PO 05/21/17 09:00 05/24/17 10:10 (Pravachol) 80 mg DAILY PO 05/21/17 09:00 05/24/17 10:11 (NS Flush) 2 ml UNSCH PRN IV FLUSH 05/20/17 20:00 (NS Flush) 2 ml BID IV FLUSH 05/20/17 21:00 05/24/17 22:00 (Tylenol) 650 mg Q4H PRN PO 05/20/17 20:00 05/24/17 14:40 (Narcan Inj) 0.4 mg UNSCH PRN IV PUSH 05/20/17 20:00 (Jessica-Colace) 1 tab BID PO 05/20/17 21:00 05/24/17 22:00 (Milk Of Magnesia Liq) 30 ml Q12H PRN PO 05/20/17 20:00 (Senokot) 17.2 mg Q12H PRN PO 05/20/17 20:00 (Dulcolax Supp) 10 mg DAILY PRN RECTAL 05/20/17 20:00 (Lactulose Liq) 30 ml DAILY PRN PO 05/20/17 20:00 (Pill Splitter) 1 ea UNSCH PRN OTHER 05/20/17 20:15 (NovoLOG SUPPLEMENTAL SCALE) 1 ACHS SLIDING SCALE SQ 05/22/17 08:00 05/23/17 09:21 (Ferrous Sulfate) 325 mg BID@12,17 PO 05/22/17 17:00 05/24/17 19:04 (Lasix Inj) 40 mg BID@,18 IV PUSH 05/23/17 09:00 05/24/17 19:05 (Percocet 5-325 Mg) 1 tab Q6H PRN PO 05/24/17 08:15 (Colchicine) 0.6 mg BID PO 05/24/17 21:00 05/24/17 22:01 Lactated Ringer's 1,000 ml @ 30 mls/hr Q24H PRN IV 05/25/17 07:15 05/28/17 07:14 Sodium Chloride 500 ml @ 30 mls/hr [id number] PRN IV 05/25/17 07:15 05/28/17 07:14 (Betadine 5% Antisepsis Kit) 1 applic STAFF EDUCATOR PRN EACH NARE 05/25/17 07:15 05/28/17 07:14 (Chlorhexidine 2% Cloth) 3 pack STAFF EDUCATOR PRN TOPICAL 05/25/17 07:15 05/28/17 07:14 Vital Signs / I&O Vital Signs Date Time Temp Pulse Resp B/P (MAP) Pulse Ox O2 Delivery O2 Flow Rate FiO2 05/25/17 04:00 84 05/25/17 00:00 81 05/25/17 00:00 98.8 83 16 136/65 (88) 92 05/24/17 21:00 Nasal Cannula 3.00 05/24/17 20:13 97.9 80 18 137/64 (88) 97 05/24/17 17:00 Nasal Cannula 3.00 05/24/17 16:05 98.5 60 18 148/60 (89) 96 05/24/17 16:00 98 05/24/17 15:44 3.00 05/24/17 14:56 Nasal Cannula 3.00 05/24/17 13:14 Nasal Cannula 3.00 05/24/17 12:05 98.4 85 20 115/59 (77) 95 05/24/17 12:00 98 05/24/17 10:30 Nasal Cannula 3.00 05/24/17 08:05 98.4 77 20 118/57 (77) 98 05/24/17 08:00 110 I/O 05/24/17 05/24/17 05/24/17 05/25/17 05/25/17 05/25/17 07:00 15:00 23:00 07:00 15:00 23:00 Intake Total 950 ml 380 ml Output Total 300 ml Balance 650 ml 380 ml Intake Oral 950 ml 380 ml Output Urine Total 300 ml # Voids 4 # Bowel Movements 0 6 Physical Exam GENERAL: Well-developed well-nourished. In no acute distress. NECK: No carotid bruits. No JVD. CARDIOVASCULAR: Irregular rate and rhythm. No murmur appreciated. RESPIRATORY: No accessory muscle use. Clear to auscultation. Breath sounds equal bilaterally. MUSCULOSKELETAL: No clubbing or cyanosis. No edema. NEUROLOGICAL: Awake and alert. Normal speech. Laboratory Laboratory Tests Test 05/24/17 08:00 05/24/17 10:50 05/24/17 13:45 White Blood Count 13.1 TH/MM3 Red Blood Count 3.97 MIL/MM3 Hemoglobin 10.3 GM/DL Hematocrit 31.3 % Mean Corpuscular Volume 78.8 FL Mean Corpuscular Hemoglobin 25.8 PG Mean Corpuscular Hemoglobin Concent 32.7 % Red Cell Distribution Width 18.4 % Platelet Count 385 TH/MM3 Mean Platelet Volume 6.9 FL Neutrophils (%) (Auto) 57.5 % Lymphocytes (%) (Auto) 28.5 % Monocytes (%) (Auto) 10.8 % Eosinophils (%) (Auto) 2.2 % Basophils (%) (Auto) 1.0 % Neutrophils # (Auto) 7.5 TH/MM3 Lymphocytes # (Auto) 3.7 TH/MM3 Monocytes # (Auto) 1.4 TH/MM3 Eosinophils # (Auto) 0.3 TH/MM3 Basophils # (Auto) 0.1 TH/MM3 CBC Comment DIFF FINAL Differential Comment Prothrombin Time 13.2 SEC Prothromb Time International Ratio 1.3 RATIO Blood Urea Nitrogen 28 MG/DL Creatinine 1.81 MG/DL Random Glucose 119 MG/DL Calcium Level 9.2 MG/DL Magnesium Level 2.6 MG/DL Sodium Level 135 MEQ/L Potassium Level 4.4 MEQ/L Chloride Level 98 MEQ/L Carbon Dioxide Level 27.8 MEQ/L Anion Gap 9 MEQ/L Estimat Glomerular Filtration Rate 37 ML/MIN Synovial Fluid Color YELLOW Synovial Fluid Appearance MODERATE Synovial Fluid WBC 36436 /MM3 Synovial Fluid RBC 500 /MM3 Synovial Fluid Neutrophils 92 % Synovial Fluid Lymphocytes 0 % Synovial Fluid Monocytes 8 % Synovial Fluid Crystals POS - URIC ACID Activated Partial Thromboplast Time 37.8 SEC Lactate Dehydrogenase 170 U/L Total Protein 6.0 GM/DL Imaging Last 24 hours Impressions Chest X-Ray 05/25/17 0600 Signed Impressions: Service Date/Time: Thursday, May 25, 2017 06:08 - CONCLUSION: 1. Cardiomegaly. Subsegmental atelectasis both bases.. Huy Wright MD Assessment and Plan Assessment and Plan 76-year-old male with a past medical history of CABG 3 months ago, A. fib, HTN, CHF. The patient presented for falls and weakness. He was found to be anemic and cardiology clearance was asked prior to GI workup. The patient was found to have findings of mild CHF. Diastolic CHF with mild acute exacerbation: Getting IV Lasix for diuresis. Repeat chest x-ray today shows improvement. Anemia: Improved and currently stable status post transfusion. Warfarin on hold. GI workup in progress. Acute kidney injury: Creatinine trending down. Atrial fibrillation: Continue metoprolol and Cardizem. Warfarin on hold. Willem Jason May 25, 2017 07:37
[2017-05-25 07:54] LABS: AUTOMATED NEUTROPHIL # 7.4 TH/MM3 (1.8-7.7); BASOPHIL # 0.1 TH/MM3 (0-0.2); BASOPHIL % 0.6 % (0.0-2.0); EOSINOPHIL # 0.3 TH/MM3 (0-0.4); EOSINOPHIL % 2.4 % (0.0-4.0); HEMATOCRIT 31.8 % (39.0-51.0); HEMOGLOBIN 10.2 GM/DL (13.0-17.0); LYMPH % 24.7 % (9.0-44.0); MEAN CELL VOLUME 78.7 FL (80.0-100.0); MEAN CORPUSCULAR HEMOGLOBIN 25.3 PG (27.0-34.0); MEAN CORPUSCULAR HGB CONC 32.2 % (32.0-36.0); MEAN PLATELET VOLUME 7.1 FL (7.0-11.0); MONO % 11.4 % (0.0-8.0); MONOCYTE # 1.4 TH/MM3 (0-0.9); NEUT % 60.9 % (16.0-70.0); PLATELET COUNT 423 TH/MM3 (150-450); RED BLOOD COUNT 4.04 MIL/MM3 (4.50-5.90); RED CELL DISTRIBUTION WIDTH 18.4 % (11.6-17.2); WHITE BLOOD COUNT 12.1 TH/MM3 (4.0-11.0)
[2017-05-25] MEDS: INSULIN ASPART SUPPLEMENTAL SCALE SQ SCH ×4 (08:00→21:59)
[2017-05-25 08:06] LABS: INTERNATIONAL NORMALIZED RATIO 1.1 RATIO; PROTHROMBIN TIME - PATIENT 11.3 SEC (9.8-11.6)
[2017-05-25 08:18] LABS: BICARBONATE 32.1 MEQ/L (21.0-32.0); CALCIUM 9.2 MG/DL (8.5-10.1); CREATININE 1.84 MG/DL (0.60-1.30)
[2017-05-25] MEDS: DILTIAZEM HCL 60 MG TAB PO SCH ×4 (08:32→21:57)
[2017-05-25] MEDS: COLCHICINE 0.6 MG TAB PO SCH ×2 (08:32→21:57)
[2017-05-25] MEDS: DIGOXIN 0.125 MG TAB PO SCH (08:32)
[2017-05-25] MEDS: PRAVASTATIN SOD 80 MG TAB PO SCH (08:32)
[2017-05-25] MEDS: FAMOTIDINE 20 MG TAB PO SCH (08:32)
[2017-05-25] MEDS: SPIRONOLACTONE 25 MG TAB PO SCH (08:32)
[2017-05-25] MEDS: DOCUSATE SODIUM 50 MG/SENNA 8.6 MG TAB PO SCH ×2 (08:33→21:57)
[2017-05-25] MEDS: SODIUM CHLORIDE 0.9% FLUSH 10 ML FLUSH IV FLUSH SCH ×2 (08:33→21:57)
[2017-05-25] MEDS: METOPROLOL SUCCINATE 50 MG EXTENDED RELEASE TAB PO SCH (08:33)
[2017-05-25] MEDS: FUROSEMIDE 40 MG/4 ML VIAL IV PUSH SCH ×2 (08:33→17:37)
--- NOTE | 2017-05-25 08:44 | HHI.PR ---
Subjective Remarks sleepy. no new complaints Objective Vitals sleepy heart reg lung cta abd s/nt ext no pitting. left knee mild effusion Vital Signs Date Time Temp Pulse Resp B/P (MAP) Pulse Ox O2 Delivery O2 Flow Rate FiO2 05/25/17 04:00 84 05/25/17 04:00 98.2 99 18 134/73 (93) 95 05/25/17 00:00 81 05/25/17 00:00 98.8 83 16 136/65 (88) 92 05/24/17 21:00 Nasal Cannula 3.00 05/24/17 20:13 97.9 80 18 137/64 (88) 97 05/24/17 17:00 Nasal Cannula 3.00 05/24/17 16:05 98.5 60 18 148/60 (89) 96 05/24/17 16:00 98 05/24/17 15:44 3.00 05/24/17 14:56 Nasal Cannula 3.00 05/24/17 13:14 Nasal Cannula 3.00 05/24/17 12:05 98.4 85 20 115/59 (77) 95 05/24/17 12:00 98 05/24/17 10:30 Nasal Cannula 3.00 Result Diagram: 05/25/17 0717 05/25/17 0717 Imaging Last Impressions Brain MRI 05/21/17 0000 Signed Impressions: Service Date/Time: May 08:55 - CONCLUSION: 1. No evidence of acute intracranial pathology. No masses are identified. 2. Old left occipital infarct Huy Wright MD Wrist X-Ray 05/20/17 0000 Signed Impressions: Service Date/Time: Saturday, May 20, 2017 20:32 - CONCLUSION: Chronic changes and no evidence for acute fracture. Rubi Eckert MD Foot X-Ray 05/20/17 0000 Signed Impressions: Service Date/Time: Saturday, May 20, 2017 20:21 - CONCLUSION: Chronic changes and no evidence for acute fracture. Rubi Eckert MD Chest X-Ray 05/20/17 0000 Signed Impressions: Service Date/Time: Saturday, May 20, 2017 17:58 - CONCLUSION: Slight CHF. Rubi Eckert MD A/P Problem List: (1) CHF (congestive heart failure) ICD Codes: I50.9 - Heart failure, unspecified Status: Acute Plan: 1. diastolic chf- s/p cabg 03/03 - CT chest reviewed and reveals: Moderated bilateral effusions which may be in part loculated in the upper lobes - US chest reveals small effusion right side approximately 176ml, not enough to drain via thoracentesis -cardiology following and continues iv diuresis. monitor renal function. (2) Gout ICD Codes: M10.9 - Gout, unspecified Status: Acute Plan: pt had fevers and severe left knee pain/effusion s/p arthrocentesis per Ortho 05/24 consistent with acute gout flare f/u cultures monitor progress. pt on colchicine. (3) Iron deficiency anemia ICD Codes: D50.9 - Iron deficiency anemia, unspecified Status: Acute Plan: - comgmt with GI - Pt on therapeutic on Coumadin for Afib, - Pt presented with c/o worsening generalized weakness and falls at home - found to have iron def anemia. - iron indices show iron deficiency - ferrous sulfate PO BID per GI - serum iron 14 (05/21/17) - transfused 2 units PRBCs (05/22/17) - plan EGD/Colonoscopy 05/25/17 (4) Change in mental status ICD Codes: R41.82 - Altered mental status, unspecified Status: Acute Plan: - MRI brain (05/21/17) --> old left infarct, no acute findings - clinically pt seemed A&O x 3, likely at baseline - MRI brain (05/22) --> old left occipital infarct - Case d/w pt's daughters bedside. Pt had CVA during admission for CABG Feb 2017 and increased confusion since seen by neurology (5) Right foot pain ICD Codes: M79.671 - Pain in right foot Status: Acute Plan: - right foot xray --> NO acute findings - now c/o right ankle pain, obtain plain films (6) Atrial fibrillation, chronic ICD Codes: I48.2 - Chronic atrial fibrillation Status: Chronic Plan: - INR 2.5 (05/20) - stable HR - digoxin, metoprolol, cardizem 90mg q6h -coumadin on hold (7) DM2 (diabetes mellitus, type 2) ICD Codes: E11.9 - Type 2 diabetes mellitus without complications Status: Chronic Plan: - accuchecks ACHS with SSI (8) CAD (coronary artery disease) ICD Codes: I25.10 - Atherosclerotic heart disease of [place] coronary artery without angina pectoris Status: Chronic Plan: - s/p CABG Feb 2017 - ASA, metoprolol, pravachol (9) Generalized weakness ICD Codes: R53.1 - Weakness Status: Acute Plan: - PT - Pt will need SNF upon discharge (10) CKD (chronic kidney disease) stage 3, GFR 30-59 ml/min ICD Codes: N18.3 - Chronic kidney disease, stage 3 (moderate) Status: Chronic Problem Qualifiers (1) CHF (congestive heart failure): (2) Iron deficiency anemia: Qualified Codes: D50.9 - Iron deficiency anemia, unspecified (3) DM2 (diabetes mellitus, type 2): Qualified Codes: E11.8 - Type 2 diabetes mellitus with unspecified complications; 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
[2017-05-25 09:49] LABS: ALB/GLOB RATIO (SPE) 0.84 (1.39-2.23)
--- NOTE | 2017-05-25 10:20 | MB ---
cc: LAURITA HOLBROOK,MIGUEL ANGEL DATE OF CONSULTATION 05/24/2017 ADMISSION DIAGNOSIS General weakness. REASON FOR CONSULTATION Please evaluate for possible left knee effusion to rule out infection. CONSULTING PHYSICIAN YAO Cox. HISTORY OF PRESENT ILLNESS Mr. Vergara is a 76-year-old male who was brought to the emergency room on May 20. He was brought by the family after he had a few falls at home and had altered mental status and increased weakness. He is managed by Medical and also has Infectious Disease involved in which he had temperatures that spiked to 102 and a white blood cell count of 16.7. He has continued to complain of left knee pain and has generalized swelling, and a consultation to orthopedics to evaluate possible septic joint is given. He is alert and oriented and is able to answer questions appropriately. He has no other orthopedic complaints. PAST MEDICAL HISTORY 1. Hypertension. 2. Coronary artery disease. 3. CVA. 4. Congestive heart failure. 5. Atrial fibrillation. 6. Diabetes. 7. Chronic kidney disease. 8. Coronary artery bypass graft surgery. ALLERGIES SULFA. MEDICATIONS 1. Lasix. 2. Ferrous sulfate. 3. Insulin. 4. Allopurinol. 5. Digoxin. 6. Pepcid. 7. Aldactone. 8. Toprol. 9. Pravachol. 10.Cardizem. 11.Flomax. 12.Tylenol p.r.n. for pain. SOCIAL HISTORY No tobacco, no alcohol, no illicit drugs. FAMILY HISTORY Noncontributory. REVIEW OF SYSTEMS He denies any chills, blurred vision or double vision, chest pain, palpitations, shortness of breath or cough, nausea, vomiting, diarrhea, constipation, dysuria, chronic rashes, heat or cold intolerance, history of easy bruising or blood clots, depression or anxiety. He does complain of left knee pain with movement and with weightbearing. PHYSICAL EXAMINATION GENERAL: Mr. Vergara is a 76-year-old male who is well-nourished, well-developed, examined bedside. He does have some generalized weakness. He is alert and oriented to person, place and time. HEENT: Head is atraumatic, normocephalic. Extraocular movements are grossly intact. Pupils are reactive to light and accommodation. He does have slightly dry mucosa. No visible lesions. NECK: No lymphadenopathy. Trachea is midline. LUNGS: Clear breath sounds bilaterally with no accessory muscle use or wheezing. HEART: Palpable pulses in all four extremities with irregular heartbeat. ABDOMEN: Soft, nondistended. No tenderness. EXTREMITIES: Examination of the bilateral upper extremities reveals no pain with shoulder, elbow or wrist range of motion. Distally he has intact sensation over the radial, ulnar and median nerve distributions with good capillary refill. He is able to fully extend his fingers and make a fist bilaterally. Examination of the right lower extremity reveals no pain with hip, knee or ankle range of motion. Distally he has intact sensation with good capillary refill. He can actively dorsiflex and plantar flex the foot. Examination of the left lower extremity reveals no pain with movement of his hip. He does have tenderness to palpation over the knee joint and significant tenderness over the superior pole of the patella. He has pain with range of motion of the knee. There is no erythema or any significant warmth. Distally he has intact sensation with good capillary refill. SKIN: No noted rashes or abrasions. PSYCHIATRIC: He is calm and cooperative. VITAL SIGNS: Temperature 98.8, pulses 81 and 83, respiratory rate 16, blood pressure 136/65, pulse oximetry 92%. LABORATORY Laboratory values show elevated white blood cell count of 13.1, hemoglobin 10.3 with hematocrit 31.3, platelet count 385. Chemistry does show elevated BUN of 28, creatinine 1.81, random glucose 119. IMAGING Images were obtained of the left knee on 05/25/2017, AP and lateral views and sunrise view which shows no acute fracture. There are mild degenerative changes noted. Joint effusion is noted. ASSESSMENT Left knee effusion. PLAN At this point due to his elevated white blood cell count aspiration is recommended of the left knee. Will plan for aspiration later this day and will evaluate synovial fluid for possible infection versus gout. Once the laboratory values are obtained will continue to prescribe appropriate treatments. Thank you for the consultation. The patient's laboratory values, x-rays and physical exam are reviewed with Dr. Holbrook and he agrees with the above-mentioned plan. Dictated by: Irvin Ervin PA-C I also saw and examined this patient. History, past medical history, social history, review of systems, physical exam, radiographs, assessment, and plan were also reviewed. Plan on nonoperative treatment. A mid-level provider in my office (nurse practitioner or physician health information assistant) may see this patient on follow-up visits and continue to implement the objectives of this plan including : Starting or adjusting medications, injections, cast application, orthotics, brace application, physical therapy, radiological studies (including x-ray, MRI , CT, ultrasound, bone scan), vascular studies, neurologic studies, specialist consultation, and proceeding with surgical management, as appropriate. MD ALLAN Lim/WILL /8:43 AM /10:05 AM MTDAmalia
[2017-05-25] MEDS ORDERED: DO NOT ADM ANY ANTICOAGULANT DRUGS PRN (10:45)
--- NOTE | 2017-05-25 10:49 | GIPROC ---
[facility] [address] [facility]. [facility], [address] EGD PROCEDURE REPORT EXAM DATE: 05/25/2017 PATIENT NAME: Teodora Vergara MR #: [id number] BIRTHDATE: 1940 ATTENDING: Sophy Noyola MD ORDER #: [id number] SILK SCREEN CUTTER: Trina Jane RN STATUS: inpatient INDICATIONS: The patient is a 76 yr old male here for an EGD due to iron deficiency anemia PROCEDURE PERFORMED: EGD w/ biopsy MEDICATIONS: None and Per Anesthesia. TOPICAL ANESTHETIC: none CONSENT: The patient understands the risks and benefits of the procedure and understands that these risks include, but are not limited to: sedation, allergic reaction, infection, perforation and/or bleeding. Alternative means of evaluation and treatment include, among others: physical exam, x-rays, and/or surgical intervention. The patient elects to proceed with this endoscopic procedure. medical equipment was checked for proper function. Hand hygiene and appropriate measures for infection prevention was taken. After the risks, benefits and alternatives of the procedure were thoroughly explained, Informed consent was verified, confirmed and timeout was successfully executed by the treatment team. The patient was anesthetized with topical anesthesia and the Pentax [id number] endoscope was introduced through the mouth and advanced to the second portion of the duodenum. Retroflexed views revealed a hiatal hernia The gastroscope was then slowly withdrawn and removed. Duodenum normal-biopsy gastritis antrum-biopsy esophagistis distal esophagus -biopsy. Dry , erythematous manjit and hypopharynx-. ADVERSE EVENTS: There were no complications. IMPRESSIONS: 1. Duodenum normal-biopsy gastritis antrum-biopsy esophagistis distal esophagus -biopsy 2. Retroflexed views revealed a hiatal hernia RECOMMENDATIONS: 1. Await biopsy results. Biopsy results will not be ready for 7-10 days. If you don't hear from us in two weeks, call our office for biopsy results. 2. Anti-reflux regimen 3. Continue PPI PATIENT CONDITION: stable DISPOSITION: Inpatient REPEAT EXAM: Return 1 year EGD Sophy Noyola MD eSigned: Sophy Noyola MD 05/25/2017 10:48 AM cc:
--- NOTE | 2017-05-25 10:52 | GIPROC ---
[facility] [address] [facility]. [facility], [address] COLONOSCOPY PROCEDURE REPORT EXAM DATE: 05/25/2017 PATIENT NAME: Teodora Vergara MR #: [id number] BIRTHDATE: 1940 ENDOSCOPIST: Sophy Noyola MD ORDER #: [id number] BOTTLING LINE OPERATOR: Trina Jane RN STATUS: inpatient INDICATIONS: The patient is a 76 yr old male here for a colonoscopy due to anemia PROCEDURE PERFORMED: Colonoscopy, diagnostic MEDICATIONS: None and Per Anesthesia. PREP QUALITY: poor PREP TYPE:Other: ESTIMATED BLOOD LOSS: None CONSENT: The patient understands the risks and benefits of the procedure and understands that these risks include, but are not limited to: sedation, allergic reaction, infection, perforation and/or bleeding. Alternative means of evaluation and treatment include, among others: physical exam, x-rays, and/or surgical intervention. The patient elects to proceed with this endoscopic procedure. medical equipment was checked for proper function. Hand hygiene and appropriate measures for infection prevention was taken. After the risks, benefits and alternatives of the procedure were thoroughly explained, Informed consent was verified, confirmed and timeout was successfully executed by the treatment team. A digital exam revealed external hemorrhoids The Pentax [id number] endoscope was introduced through the anus and advanced to the cecum, which was identified by both the appendix and ileocecal valve. The instrument was then slowly withdrawn as the colon was fully examined. COLON FINDINGS: Poor prep no gross lesions noted. Retroflexed views revealed internal hemorrhoids and Retroflexed views revealed medium internal hemorrhoids The scope was then completely withdrawn from the patient and the procedure terminated. PROCEDURE WITHDRAWAL TIME:8minutes ADVERSE EVENTS: There were no complications. IMPRESSIONS: 1. Poor prep no gross lesions noted 2. Retroflexed views revealed internal hemorrhoids 3. Retroflexed views revealed medium internal hemorrhoids 4. Revealed external hemorrhoids RECOMMENDATIONS: 1. Benefiber 2 tsp daily 2. Probiotics from any C or health food store 3. Yearly rectal exams 4. Ct abdomen and pelvis speech theraphy evalution ok to restart anticoagulation from gi point RECALL: Return 3 months Colonoscopy Sophy Noyola MD eSigned: Sophy Noyola MD 05/25/2017 10:52 AM cc:
[2017-05-25] MEDS ORDERED: DIATRIZOATE MEGLUM/DIATRIZOATE SOD 9 ML CUP PO ONE (11:30)
[2017-05-25] MEDS ORDERED: LIDOCAINE HCL 1% PF 5 ML SYRINGE OTHER ONE (12:00)
[2017-05-25] MEDS ORDERED: PHENYLEPH/NS 1000 MCG/10 ML SYR IV ONE (12:00)
[2017-05-25] MEDS ORDERED: PROPOFOL 200 MG/20 ML AMP IV ONE (12:00)
[2017-05-25] MEDS: FERROUS SULFATE 325 MG (65 MG ELEMENTAL IRON) TAB PO SCH ×2 (12:56→17:37)
--- NOTE | 2017-05-25 14:38 | HHI.IDPN ---
Note Infectious Disease Note Patient is post left knee aspiration. Fluid (+) uric acid crystals. Says his left foot hurts. Afebrile. WBC elevated. CT of abdomen and pelvis ordered and pending. 76-year-old white male who was brought to the emergency department on May 20. The patient was brought by his family after he was noted to have fallen at home and also had altered mental status and was extremely weak. The patient's daughter states that he had been previously taken to the emergency department on May 18 with altered mental status. She also notes that he had fallen at the same time prior to being brought to the emergency department and that he was evaluated and he was felt to have physical deconditioning. He was sent home and his daughter brought him back again on May 20 because of continued altered mental status and profound weakness. He is noted to be anemic. The patient was recently treated with ciprofloxacin for presumed urinary tract infection before he was brought to the emergency department on May 18. PAST MEDICAL HISTORY 1. Hypertension, 2. Coronary artery disease, 3. CVA, 4. Congestive heart failure, 5. Atrial fibrillation, 6. Diabetes mellitus, 7. Chronic kidney disease 8. Coronary artery bypass graft surgery ALLERGIES SULFA MEDICATIONS Current Medications Medications (Trade) Dose Ordered Sig/Félix Route PRN Reason Start Time Stop Time Status Last Admin Dose Admin Albuterol Sulfate (Proair Hfa Inh) 1 puff Q4H PRN INH SHORTNESS OF BREATH 05/20/17 20:00 Digoxin (Lanoxin) 0.125 mg DAILY PO 05/21/17 09:00 05/25/17 08:32 Diltiazem HCl (Cardizem) 90 mg QID PO 05/20/17 21:00 05/25/17 12:56 Famotidine (Pepcid) 20 mg DAILY PO 05/21/17 09:00 05/25/17 08:32 Spironolactone (Aldactone) 12.5 mg DAILY PO 05/21/17 09:00 05/25/17 08:32 Tamsulosin HCl (Flomax) 0.4 mg HS PO 05/20/17 21:00 05/24/17 22:00 Metoprolol Succinate (Toprol Xl) 50 mg DAILY PO 05/21/17 09:00 05/25/17 08:33 Pravastatin Sodium (Pravachol) 80 mg DAILY PO 05/21/17 09:00 1/8/18 08:32 Sodium Chloride (NS Flush) 2 ml UNSCH PRN IV FLUSH FLUSH AFTER USING IV ACCESS 05/20/17 20:00 Sodium Chloride (NS Flush) 2 ml BID IV FLUSH 05/20/17 21:00 05/25/17 08:33 Acetaminophen (Tylenol) 650 mg Q4H PRN PO TEMP > 100.4, mild pain 1-3 05/20/17 20:00 05/24/17 14:40 Naloxone HCl (Narcan Inj) 0.4 mg UNSCH PRN IV PUSH SEE LABEL COMMENTS 05/20/17 20:00 Senna/Docusate Sodium (Jessica-Colace) 1 tab BID PO 05/20/17 21:00 05/25/17 08:33 Magnesium Hydroxide (Milk Of Magnesia Liq) 30 ml Q12H PRN PO Mild constipation 05/20/17 20:00 Sennosides (Senokot) 17.2 mg Q12H PRN PO Moderate constipation 05/20/17 20:00 Bisacodyl (Dulcolax Supp) 10 mg DAILY PRN RECTAL SEVERE CONSITIPATION 05/20/17 20:00 Lactulose (Lactulose Liq) 30 ml DAILY PRN PO SEVERE CONSITIPATION 05/20/17 20:00 Miscellaneous (Pill Splitter) 1 ea UNSCH PRN OTHER SEE LABEL COMMENTS 05/20/17 20:15 Insulin Aspart (NovoLOG SUPPLEMENTAL SCALE) 1 ACHS SLIDING SCALE SQ 05/22/17 08:00 05/23/17 09:21 Ferrous Sulfate (Ferrous Sulfate) 325 mg BID@12,17 PO 05/22/17 17:00 05/25/17 12:56 Furosemide (Lasix Inj) 40 mg BID@18 IV PUSH 05/23/17 09:00 05/25/17 08:33 Oxycodone/ Acetaminophen (Percocet 5-325 Mg) 1 tab Q6H PRN PO PAIN SCALE 4 TO 10 05/24/17 08:15 Colchicine (Colchicine) 0.6 mg BID PO 05/24/17 21:00 05/25/17 08:32 Lactated Ringer's 1,000 ml @ 30 mls/hr Q24H PRN IV SEE LABEL COMMENTS 05/25/17 07:15 05/28/17 07:14 Sodium Chloride 500 ml @ 30 mls/hr [id number] PRN IV SEE LABEL COMMENTS 05/25/17 07:15 05/28/17 07:14 Povidone Iodine (Betadine 5% Antisepsis Kit) 1 applic MANAGER CORPORATE RESPONSIBILITY PRN EACH NARE SEE LABEL COMMENTS 05/25/17 07:15 05/28/17 07:14 Chlorhexidine Gluconate (Chlorhexidine 2% Cloth) 3 pack MANAGER [employer]POR[employer] RESPONSIBILITY PRN TOPICAL SEE LABEL COMMENTS 05/25/17 07:15 05/28/17 07:14 Miscellaneous Information ALL NURSING DEPARTME... UNSCH PRN .XX SEE LABEL COMMENTS 05/25/17 10:45 05/26/17 10:44 OBJECTIVE: Vital Signs Date Time Temp Pulse Resp B/P (MAP) Pulse Ox O2 Delivery O2 Flow Rate FiO2 05/25/17 11:23 97.7 73 17 123/67 (85) 100 Nasal Cannula 3 05/25/17 11:15 73 17 97/55 (69) 100 Nasal Cannula 3 05/25/17 11:00 75 17 128/57 (80) 100 Nasal Cannula 3 05/25/17 10:46 97.6 75 17 123/57 (79) 93 Nasal Cannula 3 05/25/17 10:01 96 Nasal Cannula 3.00 05/25/17 08:00 98.4 104 20 136/67 (90) 96 05/25/17 04:00 84 05/25/17 04:00 98.2 99 18 134/73 (93) 95 05/25/17 00:00 81 05/25/17 00:00 98.8 83 16 136/65 (88) 92 05/24/17 21:00 Nasal Cannula 3.00 05/24/17 20:13 97.9 80 18 137/64 (88) 97 05/24/17 17:00 Nasal Cannula 3.00 05/24/17 16:05 98.5 60 18 148/60 (89) 96 05/24/17 16:00 98 05/24/17 15:44 3.00 05/24/17 14:56 Nasal Cannula 3.00 Laboratory Tests Test 05/23/17 20:35 05/24/17 08:00 05/25/17 07:17 Erythrocyte Sedimentation Rate 47 mm/hr White Blood Count 13.1 TH/MM3 12.1 TH/MM3 Red Blood Count 3.97 MIL/MM3 4.04 MIL/MM3 Hemoglobin 10.3 GM/DL 10.2 GM/DL Hematocrit 31.3 % 31.8 % Mean Corpuscular Volume 78.8 FL 78.7 FL Mean Corpuscular Hemoglobin 25.8 PG 25.3 PG Mean Corpuscular Hemoglobin Concent 32.7 % 32.2 % Red Cell Distribution Width 18.4 % 18.4 % Platelet Count 385 TH/MM3 423 TH/MM3 Mean Platelet Volume 6.9 FL 7.1 FL Neutrophils (%) (Auto) 57.5 % 60.9 % Lymphocytes (%) (Auto) 28.5 % 24.7 % Monocytes (%) (Auto) 10.8 % 11.4 % Eosinophils (%) (Auto) 2.2 % 2.4 % Basophils (%) (Auto) 1.0 % 0.6 % Neutrophils # (Auto) 7.5 TH/MM3 7.4 TH/MM3 Lymphocytes # (Auto) 3.7 TH/MM3 3.0 TH/MM3 Monocytes # (Auto) 1.4 TH/MM3 1.4 TH/MM3 Eosinophils # (Auto) 0.3 TH/MM3 0.3 TH/MM3 Basophils # (Auto) 0.1 TH/MM3 0.1 TH/MM3 CBC Comment DIFF FINAL DIFF FINAL Differential Comment Laboratory Tests Test 05/23/17 20:35 05/24/17 08:00 05/24/17 13:45 05/25/17 07:17 C-Reactive Protein 21.00 MG/DL Blood Urea Nitrogen 28 MG/DL 28 MG/DL Creatinine 1.81 MG/DL 1.84 MG/DL Random Glucose 119 MG/DL 127 MG/DL Calcium Level 9.2 MG/DL 9.2 MG/DL Magnesium Level 2.6 MG/DL Sodium Level 135 MEQ/L 138 MEQ/L Potassium Level 4.4 MEQ/L 4.2 MEQ/L Chloride Level 98 MEQ/L 98 MEQ/L Carbon Dioxide Level 27.8 MEQ/L 32.1 MEQ/L Anion Gap 9 MEQ/L 8 MEQ/L Estimat Glomerular Filtration Rate 37 ML/MIN 36 ML/MIN Lactate Dehydrogenase 170 U/L Total Protein 6.0 GM/DL Albumin 2.74 GM/DL Albumin/Globulin Ratio 0.84 Dzegm-0-Qyosafzas 0.43 GM/DL Ecpio-9-Yjptfwrez 1.18 GM/DL Beta Globulins 0.83 GM/DL Gamma Globulins 0.82 GM/DL Microbiology Date/Time Source Procedure Growth Status 05/23/17 20:35 Blood Peripheral Aerobic Blood Culture - Preliminary NO GROWTH IN 2 DAYS Resulted 05/23/17 20:35 Blood Peripheral Anaerobic Blood Culture - Preliminary NO GROWTH IN 2 DAYS Resulted 05/23/17 20:15 Blood Peripheral Aerobic Blood Culture - Preliminary NO GROWTH IN 2 DAYS Resulted 05/23/17 20:15 Blood Peripheral Anaerobic Blood Culture - Preliminary NO GROWTH IN 2 DAYS Resulted 05/24/17 10:50 Fluid Synovial Fluid Gram Stain - Final Resulted 05/24/17 10:50 Fluid Synovial Fluid Body Fluid Culture - Preliminary NO GROWTH IN 24 HOURS. Resulted 05/23/17 08:30 Stool Stool Stool Occult Blood (LESLIE) - Final HEMOCCULT NEGATIVE Complete IMAGING: Chest X-Ray 05/25/17 0600 Signed Impressions: Service Date/Time: Thursday, May 25, 2017 06:08 - CONCLUSION: 1. Cardiomegaly. Subsegmental atelectasis both bases.. Huy Wright MD Chest Ultrasound 05/24/17 0000 Signed Impressions: Service Date/Time: Wednesday, May 24, 2017 10:37 - CONCLUSION: 1. Small right effusion Huy Wright MD Knee X-Ray 05/23/17 0000 Signed Impressions: Service Date/Time: Tuesday, May 23, 2017 14:58 - CONCLUSION: 1. Joint effusion. There is no evidence of acute fracture. Huy Wright MD Chest CT 05/23/17 0000 Signed Impressions: Service Date/Time: Tuesday, May 23, 2017 15:10 - CONCLUSION: 1. Moderate bilateral effusions which may be in part be loculated in the upper lobes. Huy Wright MD Ankle X-Ray 05/22/17 0800 Signed Impressions: Service Date/Time: Monday, May 22, 2017 08:34 - CONCLUSION: 1. There is no evidence of acute fracture. Huy Wright MD Brain MRI 05/21/17 0000 Signed Impressions: Service Date/Time: May 08:55 - CONCLUSION: 1. No evidence of acute intracranial pathology. No masses are identified. 2. Old left occipital infarct Huy Wright MD Wrist X-Ray 05/20/17 0000 Signed Impressions: Service Date/Time: Saturday, May 20, 2017 20:32 - CONCLUSION: Chronic changes and no evidence for acute fracture. Rubi Eckert MD Foot X-Ray 05/20/17 0000 Signed Impressions: Service Date/Time: Saturday, May 20, 2017 20:21 - CONCLUSION: Chronic changes and no evidence for acute fracture. Rubi Eckert MD PHYSICAL EXAMINATION GENERAL: No acute distress. He is awake, alert and oriented. HEENT: Head atraumatic. Extraocular movements grossly intact, pupils reactive to light. No icterus. Oropharynx slightly dry mucosa. No visible lesions. NECK: Supple without adenopathy. LUNGS: Clear breath sounds bilateral. HEART: Irregular S1 and S2. No murmurs, rubs or gallops. Abdomen: Bowel sounds present, soft, no tenderness appreciated. EXTREMITIES: The left knee has swelling and tenderness. No erythema visible. The remaining extremities have no clubbing, cyanosis or edema. No calf tenderness on palpation. SKIN: No diffuse rash. NEUROLOGIC: No gross focal findings. PSYCHIATRIC: Calm and cooperative. IMPRESSION 1. Fever of unknown origin. The patient is having temperature going up to 102 degrees. He also has elevated white blood cell count but does not appear to have left shift on his differential. Temp improved. Probably due to acute gout. 2. Altered mental status. Much better. 3. Profound generalized weakness. 4. Chronic kidney disease RECOMMENDATIONS Monitor the temperature. Hold of on antibiotics. Jesse Andrade MD May 25, 2017 14:38
--- NOTE | 2017-05-25 17:46 | RADRPT ---
EXAM DATE/TIME: 05/25/2017 16:41 [facility] COMPARISON: No previous studies available for comparison. INDICATIONS : History of anemia. ORAL CONTRAST: Prescribed oral contrast ingested. RADIATION DOSE: 8.24 CTDIvol (mGy) MEDICAL HISTORY : Cardiovascular disease. Hypertension. Chronic obstructive pulmonary disease.ulcer,diabetic,hiatal her argenis SURGICAL HISTORY : None. ENCOUNTER: Initial ACUITY: 1 day PAIN SCALE: 3/10 LOCATION: abdomen TECHNIQUE: Volumetric scanning of the abdomen and pelvis was performed. Using automated exposure control and ad justment of the mA and/or kV according to patient size, radiation dose was kept as low as reasonably achievable to obtain optimal diagnostic quality images. DICOM format image data is available electro nically for review and comparison. FINDINGS: Trace pleural effusion and cardiomegaly and mild congestive failure Liver is free of focal defects. Small stones in gallbladder Spleen and pancreas unremarkable Adrenals are normal Tiny calcification in both the right and left kidney There is no retroperitoneal adenopathy Possible apple core lesion in cecum series 2 image 57 Moderate vascular cavitations are noted Pelvic contents are unremarkable Small midline hernia containing only fat CONCLUSION: 1. Possible apple core lesion series 2 image 57 2. Trace pleural effusions with mild congestive failure 3. Midline hernia containing only fat Rodolfo Valles MD FACR on May 25, 2017 at 17:41 Board Certified Radiologist. This report was verified electronically.
[2017-05-25] MEDS ORDERED: WARFARIN SOD 3 MG TAB PO ONE (20:45)
[2017-05-25] MEDS: TAMSULOSIN HCL 0.4 MG CAP PO SCH (21:57)
[2017-05-26] VITALS (13 sets, daily range): BP systolic 100–133; BP diastolic 52–83; PULSE 68–88; RESP 16–20; TEMP 97.6–98.8; O2SAT 92–97
--- NOTE | 2017-05-26 07:57 | PD.ORT.PN ---
Subjective Subjective Remarks Continuing to improve with pain and range of motion of the knee Objective Vitals Vital Signs Date Time Temp Pulse Resp B/P (MAP) Pulse Ox O2 Delivery O2 Flow Rate FiO2 05/26/17 04:25 82 05/26/17 04:00 97.7 83 18 100/52 (68) 96 05/26/17 04:00 3.00 05/26/17 00:00 3.00 05/26/17 00:00 97.6 88 16 133/79 (97) 97 05/25/17 23:58 89 05/25/17 20:24 71 05/25/17 20:00 98.0 87 16 103/54 (70) 96 05/25/17 16:00 71 05/25/17 16:00 98.1 79 20 122/64 (83) 100 05/25/17 12:00 97.5 88 20 160/72 (101) 95 05/25/17 12:00 85 05/25/17 11:23 97.7 73 17 123/67 (85) 100 Nasal Cannula 3 05/25/17 11:15 73 17 97/55 (69) 100 Nasal Cannula 3 05/25/17 11:00 75 17 128/57 (80) 100 Nasal Cannula 3 05/25/17 10:46 97.6 75 17 123/57 (79) 93 Nasal Cannula 3 05/25/17 10:01 96 Nasal Cannula 3.00 05/25/17 08:00 98.4 104 20 136/67 (90) 96 I/O 05/25/17 05/25/17 05/25/17 05/26/17 05/26/17 05/26/17 07:00 15:00 23:00 07:00 15:00 23:00 Intake Total 300 ml 0 ml Balance 300 ml 0 ml Intake Oral 0 ml Other 300 ml # Voids 3 2 # Bowel Movements 2 0 Result Diagram: 05/25/1717 05/25/17716 Imaging Last 24 hours Impressions Chest X-Ray 05/24/17 0000 Signed Impressions: Service Date/Time: Wednesday, May 24, 2017 10:30 - CONCLUSION: No significant change compared to 05/22/17. Nir Ayala MD Chest Ultrasound 05/24/17 0000 Signed Impressions: Service Date/Time: Wednesday, May 24, 2017 10:37 - CONCLUSION: 1. Small right effusion Huy Wright MD Procedures After informed consent left knee aspiration is performed. Left knee is sterilely prepped with alcohol and ChloraPrep and a 20-gauge spinal needle is used through superior lateral approach and a 40 cc of straw-colored synovial fluid is withdrawn. Patient tolerates procedure well. Sterile bandages placed upon it. Samples are sent to lab Objective Remarks Examination of the left lower extremity reveals no pain with hip or ankle range of motion. Knee range of motion is from 5 to 80. He has mild swelling superior to the knee and has tenderness over both medial and lateral compartments and posterior to patella. Skin is intact and no erythema or drainage Distally he has intact sensation good capillary refills and strong dorsiflexion plantar flexion of foot. Assessment & Plan Assessment and Plan Left knee effusion--appears to be gout Cultures pending Continue Medical management and PT for ROM of knee. WBAT Irvin Sanz Jr. May 26, 2017 07:57
[2017-05-26] MEDS: INSULIN ASPART SUPPLEMENTAL SCALE SQ SCH ×4 (08:00→20:53)
--- NOTE | 2017-05-26 08:21 | PD.CARD.PN ---
Subjective Subjective Remarks No dyspnea. Foot pain better. Objective Medications Current Medications Medications (Trade) Dose Ordered Sig/Félix Route Start Time Stop Time Status Last Admin (Proair Hfa Inh) 1 puff Q4H PRN INH 05/20/17 20:00 (Lanoxin) 0.125 mg DAILY PO 05/21/17 09:00 05/25/17 08:32 (Cardizem) 90 mg QID PO 05/20/17 21:00 05/25/17 21:57 (Pepcid) 20 mg DAILY PO 05/21/17 09:00 05/25/17 08:32 (Aldactone) 12.5 mg DAILY PO 05/21/17 09:00 05/25/17 08:32 (Flomax) 0.4 mg HS PO 05/20/17 21:00 05/25/17 21:57 (Toprol Xl) 50 mg DAILY PO 05/21/17 09:00 05/25/17 08:33 (Pravachol) 80 mg DAILY PO 05/21/17 09:00 05/25/17 08:32 (NS Flush) 2 ml UNSCH PRN IV FLUSH 05/20/17 20:00 (NS Flush) 2 ml BID IV FLUSH 05/20/17 21:00 05/25/17 21:57 (Tylenol) 650 mg Q4H PRN PO 05/20/17 20:00 05/24/17 14:40 (Narcan Inj) 0.4 mg UNSCH PRN IV PUSH 05/20/17 20:00 (Jessica-Colace) 1 tab BID PO 05/20/17 21:00 05/25/17 21:57 (Milk Of Magnesia Liq) 30 ml Q12H PRN PO 05/20/17 20:00 (Senokot) 17.2 mg Q12H PRN PO 05/20/17 20:00 (Dulcolax Supp) 10 mg DAILY PRN RECTAL 05/20/17 20:00 (Lactulose Liq) 30 ml DAILY PRN PO 05/20/17 20:00 (Pill Splitter) 1 ea UNSCH PRN OTHER 05/20/17 20:15 (NovoLOG SUPPLEMENTAL SCALE) 1 ACHS SLIDING SCALE SQ 05/22/17 08:00 05/25/17 21:59 (Ferrous Sulfate) 325 mg BID@12,17 PO 05/22/17 17:00 05/25/17 17:37 (Lasix Inj) 40 mg BID@,18 IV PUSH 05/23/17 09:00 05/25/17 17:37 (Percocet 5-325 Mg) 1 tab Q6H PRN PO 05/24/17 08:15 (Colchicine) 0.6 mg BID PO 05/24/17 21:00 05/25/17 21:57 Lactated Ringer's 1,000 ml @ 30 mls/hr Q24H PRN IV 05/25/17 07:15 05/28/17 07:14 Sodium Chloride 500 ml @ 30 mls/hr [id number] PRN IV 05/25/17 07:15 05/28/17 07:14 (Betadine 5% Antisepsis Kit) 1 applic ANIMAL STUNNER PRN EACH NARE 05/25/17 07:15 05/28/17 07:14 (Chlorhexidine 2% Cloth) 3 pack ANIMAL STUNNER PRN TOPICAL 05/25/17 07:15 05/28/17 07:14 Miscellaneous Information ALL NURSING DEPARTME... UNSCH PRN .XX 05/25/17 10:45 05/26/17 10:44 (Coumadin) 3 mg DAILY@16 PO 05/26/17 16:00 Vital Signs / I&O Vital Signs Date Time Temp Pulse Resp B/P (MAP) Pulse Ox O2 Delivery O2 Flow Rate FiO2 05/26/17 04:25 82 05/26/17 04:00 97.7 83 18 100/52 (68) 96 05/26/17 04:00 3.00 05/26/17 00:00 3.00 05/26/17 00:00 97.6 88 16 133/79 (97) 97 05/25/17 23:58 89 05/25/17 20:24 71 05/25/17 20:00 98.0 87 16 103/54 (70) 96 05/25/17 16:00 71 05/25/17 16:00 98.1 79 20 122/64 (83) 100 05/25/17 12:00 97.5 88 20 160/72 (101) 95 05/25/17 12:00 85 05/25/17 11:23 97.7 73 17 123/67 (85) 100 Nasal Cannula 3 05/25/17 11:15 73 17 97/55 (69) 100 Nasal Cannula 3 05/25/17 11:00 75 17 128/57 (80) 100 Nasal Cannula 3 05/25/17 10:46 97.6 75 17 123/57 (79) 93 Nasal Cannula 3 05/25/17 10:01 96 Nasal Cannula 3.00 I/O 05/25/17 05/25/17 05/25/17 05/26/17 05/26/17 05/26/17 07:00 15:00 23:00 07:00 15:00 23:00 Intake Total 300 ml 0 ml Balance 300 ml 0 ml Intake Oral 0 ml Other 300 ml # Voids 3 2 # Bowel Movements 2 0 Physical Exam lungs clear rrr Assessment and Plan Assessment and Plan Stable CV. Huy Mcgregor MD May 26, 2017 08:21
[2017-05-26 08:31] LABS: AUTOMATED NEUTROPHIL # 6.3 TH/MM3 (1.8-7.7); BASOPHIL # 0.1 TH/MM3 (0-0.2); BASOPHIL % 0.6 % (0.0-2.0); EOSINOPHIL # 0.4 TH/MM3 (0-0.4); EOSINOPHIL % 4.1 % (0.0-4.0); HEMATOCRIT 34.2 % (39.0-51.0); HEMOGLOBIN 11.1 GM/DL (13.0-17.0); LYMPH % 26.1 % (9.0-44.0); LYMPHOCYTE # 2.8 TH/MM3 (1.0-4.8); MEAN CELL VOLUME 78.9 FL (80.0-100.0); MEAN CORPUSCULAR HEMOGLOBIN 25.6 PG (27.0-34.0); MEAN CORPUSCULAR HGB CONC 32.4 % (32.0-36.0); MEAN PLATELET VOLUME 7.2 FL (7.0-11.0); MONO % 10.3 % (0.0-8.0); MONOCYTE # 1.1 TH/MM3 (0-0.9); NEUT % 58.9 % (16.0-70.0); PLATELET COUNT 418 TH/MM3 (150-450); RED BLOOD COUNT 4.33 MIL/MM3 (4.50-5.90); RED CELL DISTRIBUTION WIDTH 18.3 % (11.6-17.2); WHITE BLOOD COUNT 10.7 TH/MM3 (4.0-11.0)
--- NOTE | 2017-05-26 08:53 | HHI.PR ---
Subjective Remarks lying in bed. no distress cpap mask. Objective Vitals nad follows commands sleepy lung cta ext no edema Vital Signs Date Time Temp Pulse Resp B/P (MAP) Pulse Ox O2 Delivery O2 Flow Rate FiO2 05/26/17 04:25 82 05/26/17 04:00 97.7 83 18 100/52 (68) 96 05/26/17 04:00 3.00 05/26/17 00:00 3.00 05/26/17 00:00 97.6 88 16 133/79 (97) 97 05/25/17 23:58 89 05/25/17 20:24 71 05/25/17 20:00 98.0 87 16 103/54 (70) 96 05/25/17 16:00 71 05/25/17 16:00 98.1 79 20 122/64 (83) 100 05/25/17 12:00 97.5 88 20 160/72 (101) 95 05/25/17 12:00 85 05/25/17 11:23 97.7 73 17 123/67 (85) 100 Nasal Cannula 3 05/25/17 11:15 73 17 97/55 (69) 100 Nasal Cannula 3 05/25/17 11:00 75 17 128/57 (80) 100 Nasal Cannula 3 05/25/17 10:46 97.6 75 17 123/57 (79) 93 Nasal Cannula 3 05/25/17 10:01 96 Nasal Cannula 3.00 Result Diagram: 05/26/17 0710 05/25/17 0717 Imaging Last Impressions Brain MRI 05/21/17 0000 Signed Impressions: Service Date/Time: May 08:55 - CONCLUSION: 1. No evidence of acute intracranial pathology. No masses are identified. 2. Old left occipital infarct Huy Wright MD Wrist X-Ray 05/20/17 0000 Signed Impressions: Service Date/Time: Saturday, May 20, 2017 20:32 - CONCLUSION: Chronic changes and no evidence for acute fracture. Rubi Eckert MD Foot X-Ray 05/20/17 0000 Signed Impressions: Service Date/Time: Saturday, May 20, 2017 20:21 - CONCLUSION: Chronic changes and no evidence for acute fracture. Rubi Eckert MD Chest X-Ray 05/20/17 0000 Signed Impressions: Service Date/Time: Saturday, May 20, 2017 17:58 - CONCLUSION: Slight CHF. K. Juan Miguel Eckert MD A/P Problem List: (1) CHF (congestive heart failure) ICD Codes: I50.9 - Heart failure, unspecified Status: Acute Plan: 1. diastolic chf- s/p cabg 03/03 - CT chest reviewed and reveals: Moderated bilateral effusions which may be in part loculated in the upper lobes - US chest reveals small effusion right side approximately 176ml, not enough to drain via thoracentesis -cardiology following and continues iv diuresis. monitor renal function. will likely convert today. (2) Gout ICD Codes: M10.9 - Gout, unspecified Status: Acute Plan: pt had fevers and severe left knee pain/effusion s/p arthrocentesis per Ortho 05/24 consistent with acute gout flare. improving f/u cultures monitor progress. pt on colchicine. (3) Iron deficiency anemia ICD Codes: D50.9 - Iron deficiency anemia, unspecified Status: Acute Plan: - comgmt with GI - Pt on therapeutic on Coumadin for Afib, - Pt presented with c/o worsening generalized weakness and falls at home - found to have iron def anemia. - iron indices show iron deficiency - ferrous sulfate PO BID per GI - serum iron 14 (05/21/17) - transfused 2 units PRBCs (05/22/17) -egd gastritis/esophagitis. gi to f/u bx's colonoscopy poor prep. defer ct a/p findings to GI. (4) Change in mental status ICD Codes: R41.82 - Altered mental status, unspecified Status: Acute Plan: - MRI brain (05/21/17) --> old left infarct, no acute findings - clinically pt seemed A&O x 3, likely at baseline - MRI brain (05/22) --> old left occipital infarct - Case d/w pt's daughters bedside. Pt had CVA during admission for CABG Feb 2017 and increased confusion since seen by neurology (5) Right foot pain ICD Codes: M79.671 - Pain in right foot Status: Acute Plan: - right foot xray --> NO acute findings - now c/o right ankle pain, obtain plain films (6) Atrial fibrillation, chronic ICD Codes: I48.2 - Chronic atrial fibrillation Status: Chronic Plan: - INR 2.5 (1/3) - stable HR - digoxin, metoprolol, cardizem 90mg q6h -resume coumadin (7) DM2 (diabetes mellitus, type 2) ICD Codes: E11.9 - Type 2 diabetes mellitus without complications Status: Chronic Plan: - accuchecks ACHS with SSI (8) CAD (coronary artery disease) ICD Codes: I25.10 - Atherosclerotic heart disease of [place] coronary artery without angina pectoris Status: Chronic Plan: - s/p CABG Feb 2017 - ASA, metoprolol, pravachol (9) Generalized weakness ICD Codes: R53.1 - Weakness Status: Acute Plan: - PT - Pt will need SNF upon discharge (10) CKD (chronic kidney disease) stage 3, GFR 30-59 ml/min ICD Codes: N18.3 - Chronic kidney disease, stage 3 (moderate) Status: Chronic Problem Qualifiers (1) CHF (congestive heart failure): (2) Iron deficiency anemia: Qualified Codes: D50.9 - Iron deficiency anemia, unspecified (3) DM2 (diabetes mellitus, type 2): Qualified Codes: E11.8 - Type 2 diabetes mellitus with unspecified complications; Z79.4 - longterm (current) use of insulin (4) CAD (coronary artery disease): Qualified Codes: I25.10 - Atherosclerotic heart disease of [place] coronary artery without angina pectoris Julian Joseph MD May 26, 2017 08:53
[2017-05-26] MEDS: FUROSEMIDE 40 MG/4 ML VIAL IV PUSH SCH (08:55)
[2017-05-26] MEDS: SPIRONOLACTONE 25 MG TAB PO SCH (08:55)
[2017-05-26] MEDS: SODIUM CHLORIDE 0.9% FLUSH 10 ML FLUSH IV FLUSH SCH ×2 (08:55→20:53)
[2017-05-26] MEDS: DILTIAZEM HCL 60 MG TAB PO SCH ×4 (08:56→20:53)
[2017-05-26] MEDS: PRAVASTATIN SOD 80 MG TAB PO SCH (08:56)
[2017-05-26] MEDS: COLCHICINE 0.6 MG TAB PO SCH ×2 (08:56→20:52)
[2017-05-26] MEDS: METOPROLOL SUCCINATE 50 MG EXTENDED RELEASE TAB PO SCH (08:56)
[2017-05-26] MEDS: DIGOXIN 0.125 MG TAB PO SCH (08:56)
[2017-05-26] MEDS: FAMOTIDINE 20 MG TAB PO SCH (08:57)
[2017-05-26] MEDS: DOCUSATE SODIUM 50 MG/SENNA 8.6 MG TAB PO SCH ×2 (08:57→20:53)
[2017-05-26 09:01] LABS: BICARBONATE 33.1 MEQ/L (21.0-32.0); CALCIUM 9.4 MG/DL (8.5-10.1); CREATININE 1.91 MG/DL (0.60-1.30)
[2017-05-26] MEDS: FERROUS SULFATE 325 MG (65 MG ELEMENTAL IRON) TAB PO SCH ×2 (13:08→17:32)
--- NOTE | 2017-05-26 13:26 | HHI.IDPN ---
Note Infectious Disease Note Patient is post left knee aspiration. Fluid (+) uric acid crystals. Culture has no growth. Afebrile. WBC down to normal. 76-year-old white male who was brought to the emergency department on May 20. The patient was brought by his family after he was noted to have fallen at home and also had altered mental status and was extremely weak. The patient's daughter states that he had been previously taken to the emergency department on May 18 with altered mental status. She also notes that he had fallen at the same time prior to being brought to the emergency department and that he was evaluated and he was felt to have physical deconditioning. He was sent home and his daughter brought him back again on May 20 because of continued altered mental status and profound weakness. He is noted to be anemic. The patient was recently treated with ciprofloxacin for presumed urinary tract infection before he was brought to the emergency department on May 18. PAST MEDICAL HISTORY 1. Hypertension, 2. Coronary artery disease, 3. CVA, 4. Congestive heart failure, 5. Atrial fibrillation, 6. Diabetes mellitus, 7. Chronic kidney disease 8. Coronary artery bypass graft surgery ALLERGIES SULFA ANTIBIOTICS: None. OBJECTIVE: Vital Signs Date Time Temp Pulse Resp B/P (MAP) Pulse Ox O2 Delivery O2 Flow Rate FiO2 05/26/17 11:45 3.00 05/26/17 08:04 98.7 76 20 130/66 (87) 93 05/26/17 08:00 79 05/26/17 04:25 82 05/26/17 04:00 97.7 83 18 100/52 (68) 96 05/26/17 04:00 3.00 05/26/17 00:00 3.00 05/26/17 00:00 97.6 88 16 133/79 (97) 97 05/25/17 23:58 89 05/25/17 20:24 71 05/25/17 20:00 98.0 87 16 103/54 (70) 96 05/25/17 16:00 71 05/25/17 16:00 98.1 79 20 122/64 (83) 100 Laboratory Tests Test 05/25/17 07:17 05/26/17 07:10 White Blood Count 12.1 TH/MM3 10.7 TH/MM3 Red Blood Count 4.04 MIL/MM3 4.33 MIL/MM3 Hemoglobin 10.2 GM/DL 11.1 GM/DL Hematocrit 31.8 % 34.2 % Mean Corpuscular Volume 78.7 FL 78.9 FL Mean Corpuscular Hemoglobin 25.3 PG 25.6 PG Mean Corpuscular Hemoglobin Concent 32.2 % 32.4 % Red Cell Distribution Width 18.4 % 18.3 % Platelet Count 423 TH/MM3 418 TH/MM3 Mean Platelet Volume 7.1 FL 7.2 FL Neutrophils (%) (Auto) 60.9 % 58.9 % Lymphocytes (%) (Auto) 24.7 % 26.1 % Monocytes (%) (Auto) 11.4 % 10.3 % Eosinophils (%) (Auto) 2.4 % 4.1 % Basophils (%) (Auto) 0.6 % 0.6 % Neutrophils # (Auto) 7.4 TH/MM3 6.3 TH/MM3 Lymphocytes # (Auto) 3.0 TH/MM3 2.8 TH/MM3 Monocytes # (Auto) 1.4 TH/MM3 1.1 TH/MM3 Eosinophils # (Auto) 0.3 TH/MM3 0.4 TH/MM3 Basophils # (Auto) 0.1 TH/MM3 0.1 TH/MM3 CBC Comment DIFF FINAL DIFF FINAL Differential Comment Laboratory Tests Test 05/24/17 13:45 05/25/17 07:17 05/26/17 07:10 Lactate Dehydrogenase 170 U/L Total Protein 6.0 GM/DL Albumin 2.74 GM/DL Albumin/Globulin Ratio 0.84 Mdrwl-4-Mapqlvrdw 0.43 GM/DL Upthf-0-Heubczjlc 1.18 GM/DL Beta Globulins 0.83 GM/DL Gamma Globulins 0.82 GM/DL Electrophoresis Pathologist Comment Blood Urea Nitrogen 28 MG/DL 32 MG/DL Creatinine 1.84 MG/DL 1.91 MG/DL Random Glucose 127 MG/DL 111 MG/DL Calcium Level 9.2 MG/DL 9.4 MG/DL Sodium Level 138 MEQ/L 135 MEQ/L Potassium Level 4.2 MEQ/L 4.2 MEQ/L Chloride Level 98 MEQ/L 95 MEQ/L Carbon Dioxide Level 32.1 MEQ/L 33.1 MEQ/L Anion Gap 8 MEQ/L 7 MEQ/L Estimat Glomerular Filtration Rate 36 ML/MIN 35 ML/MIN Microbiology Date/Time Source Procedure Growth Status 05/23/17 20:35 Blood Peripheral Aerobic Blood Culture - Preliminary NO GROWTH IN 3 DAYS Resulted 05/23/17 20:35 Blood Peripheral Anaerobic Blood Culture - Preliminary NO GROWTH IN 3 DAYS Resulted 05/23/17 20:15 Blood Peripheral Aerobic Blood Culture - Preliminary NO GROWTH IN 3 DAYS Resulted 05/23/17 20:15 Blood Peripheral Anaerobic Blood Culture - Preliminary NO GROWTH IN 3 DAYS Resulted 05/24/17 10:50 Fluid Synovial Fluid Gram Stain - Final Resulted 05/24/17 10:50 Fluid Synovial Fluid Body Fluid Culture - Preliminary NO GROWTH IN 48 HOURS. Resulted IMAGING: Chest X-Ray 05/25/17 06 Signed Impressions: Service Date/Time: Thursday, May 25, 2017 06:08 - CONCLUSION: 1. Cardiomegaly. Subsegmental atelectasis both bases.. Huy Wright MD Abdomen/Pelvis CT 05/25/17 0000 Signed Impressions: Service Date/Time: Thursday, May 25, 2017 16:41 - CONCLUSION: 1. Possible apple core lesion series 2 image 57 2. Trace pleural effusions with mild congestive failure 3. Midline hernia containing only fat Rodolfo Valles MD FACR Chest X-Ray 05/24/17 0000 Signed Impressions: Service Date/Time: Wednesday, May 24, 2017 10:30 - CONCLUSION: No significant change compared to 05/22/17. Nir Ayala MD Chest Ultrasound 05/24/17 0000 Signed Impressions: Service Date/Time: Wednesday, May 24, 2017 10:37 - CONCLUSION: 1. Small right effusion Huy Wright MD Chest X-Ray 05/25/17 06 Signed Impressions: Service Date/Time: Thursday, May 25, 2017 06:08 - CONCLUSION: 1. Cardiomegaly. Subsegmental atelectasis both bases.. Huy Wright MD Chest Ultrasound 05/24/17 0000 Signed Impressions: Service Date/Time: Wednesday, May 24, 2017 10:37 - CONCLUSION: 1. Small right effusion Huy Wright MD Knee X-Ray 05/23/17 0000 Signed Impressions: Service Date/Time: Tuesday, May 23, 2017 14:58 - CONCLUSION: 1. Joint effusion. There is no evidence of acute fracture. Huy Wright MD Chest CT 05/23/17 0000 Signed Impressions: Service Date/Time: Tuesday, May 23, 2017 15:10 - CONCLUSION: 1. Moderate bilateral effusions which may be in part be loculated in the upper lobes. Huy Wright MD Ankle X-Ray 05/22/17 0800 Signed Impressions: Service Date/Time: Monday, May 22, 2017 08:34 - CONCLUSION: 1. There is no evidence of acute fracture. Huy Wright MD Brain MRI 05/21/17 0000 Signed Impressions: Service Date/Time: May 08:55 - CONCLUSION: 1. No evidence of acute intracranial pathology. No masses are identified. 2. Old left occipital infarct Huy Wright MD Wrist X-Ray 05/20/17 0000 Signed Impressions: Service Date/Time: Saturday, May 20, 2017 20:32 - CONCLUSION: Chronic changes and no evidence for acute fracture. Rubi Eckert MD Foot X-Ray 05/20/17 0000 Signed Impressions: Service Date/Time: Saturday, May 20, 2017 20:21 - CONCLUSION: Chronic changes and no evidence for acute fracture. Rubi Eckert MD PHYSICAL EXAMINATION GENERAL: No acute distress. He is awake, alert and oriented. HEENT: Head atraumatic. Extraocular movements grossly intact, pupils reactive to light. No icterus. Oropharynx slightly dry mucosa. No visible lesions. NECK: Supple without adenopathy. LUNGS: Clear breath sounds. HEART: No murmurs, rubs or gallops. Abdomen: Bowel sounds present, soft, no tenderness appreciated. EXTREMITIES: The left knee swelling and tenderness is less. No erythema visible. The remaining extremities have no clubbing, cyanosis or edema. SKIN: No diffuse rash. NEUROLOGIC: No gross focal findings. PSYCHIATRIC: Calm and cooperative. IMPRESSION 1. Fever of unknown origin. The patient is having temperature going up to 102 degrees. He also has elevated white blood cell count but does not appear to have left shift on his differential. Temp improved. Probably due to acute gout. WBC down to normal. 2. Altered mental status. Now mentally clear. 3. Profound generalized weakness. 4. Chronic kidney disease RECOMMENDATIONS No antibiotics necessary. I am signing off now. Jesse Andrade MD May 26, 2017 13:26
--- NOTE | 2017-05-26 14:31 | HHI.GIFU ---
Subjective Remarks Pt resting in bed, in no apparent distress. He reports multiple BMs today. Denies nausea, vomiting, abdominal pain. (Hilda Dolan) Objective Vitals I&O Vital Signs Date Time Temp Pulse Resp B/P (MAP) Pulse Ox O2 Delivery O2 Flow Rate FiO2 05/26/17 12:04 98.8 74 20 128/64 (85) 94 05/26/17 11:45 3.00 05/26/17 08:04 98.7 76 20 130/66 (87) 93 05/26/17 08:00 79 05/26/17 04:25 82 05/26/17 04:00 97.7 83 18 100/52 (68) 96 05/26/17 04:00 3.00 05/26/17 00:00 3.00 05/26/17 00:00 97.6 88 16 133/79 (97) 97 05/25/17 23:58 89 05/25/17 20:24 71 05/25/17 20:00 98.0 87 16 103/54 (70) 96 05/25/17 16:00 71 05/25/17 16:00 98.1 79 20 122/64 (83) 100 I/O 05/25/17 05/25/17 05/25/17 05/26/17 05/26/17 05/26/17 06:59 14:59 22:59 06:59 14:59 22:59 Intake Total 300 ml 0 ml Balance 300 ml 0 ml Intake Oral 0 ml Other 300 ml # Voids 3 2 # Bowel Movements 2 0 Laboratory Laboratory Tests Test 05/26/17 07:10 White Blood Count 10.7 Red Blood Count 4.33 Hemoglobin 11.1 Hematocrit 34.2 Mean Corpuscular Volume 78.9 Mean Corpuscular Hemoglobin 25.6 Mean Corpuscular Hemoglobin Concent 32.4 Red Cell Distribution Width 18.3 Platelet Count 418 Mean Platelet Volume 7.2 Neutrophils (%) (Auto) 58.9 Lymphocytes (%) (Auto) 26.1 Monocytes (%) (Auto) 10.3 Eosinophils (%) (Auto) 4.1 Basophils (%) (Auto) 0.6 Neutrophils # (Auto) 6.3 Lymphocytes # (Auto) 2.8 Monocytes # (Auto) 1.1 Eosinophils # (Auto) 0.4 Basophils # (Auto) 0.1 CBC Comment DIFF FINAL Differential Comment Blood Urea Nitrogen 32 Creatinine 1.91 Random Glucose 111 Calcium Level 9.4 Sodium Level 135 Potassium Level 4.2 Chloride Level 95 Carbon Dioxide Level 33.1 Anion Gap 7 Estimat Glomerular Filtration Rate 35 Date/Time Source Procedure Growth Status 05/23/17 20:35 Blood Peripheral Aerobic Blood Culture - Preliminary NO GROWTH IN 3 DAYS Resulted 05/23/17 20:35 Blood Peripheral Anaerobic Blood Culture - Preliminary NO GROWTH IN 3 DAYS Resulted 05/24/17 10:50 Fluid Synovial Fluid Gram Stain - Final Resulted 05/24/17 10:50 Fluid Synovial Fluid Body Fluid Culture - Preliminary NO GROWTH IN 48 HOURS. Resulted 05/23/17 08:30 Stool Stool Stool Occult Blood (LESLIE) - Final HEMOCCULT NEGATIVE Complete 05/21/17 06:30 Urine Other Urine Culture - Final <10,000 CFU/ML MIXED GRAM POSITIVE FL... Complete Imaging Last Impressions Chest X-Ray 05/25/17 0600 Signed Impressions: Service Date/Time: Thursday, May 25, 2017 06:08 - CONCLUSION: 1. Cardiomegaly. Subsegmental atelectasis both bases.. Huy Wright MD Abdomen/Pelvis CT 05/25/17 0000 Signed Impressions: Service Date/Time: Thursday, May 25, 2017 16:41 - CONCLUSION: 1. Possible apple core lesion series 2 image 57 2. Trace pleural effusions with mild congestive failure 3. Midline hernia containing only fat Rodolfo Valles MD FACR Chest Ultrasound 05/24/17 0000 Signed Impressions: Service Date/Time: Wednesday, May 24, 2017 10:37 - CONCLUSION: 1. Small right effusion Huy Wright MD Knee X-Ray 05/23/17 0000 Signed Impressions: Service Date/Time: Tuesday, May 23, 2017 14:58 - CONCLUSION: 1. Joint effusion. There is no evidence of acute fracture. Huy Wright MD Chest CT 05/23/17 0000 Signed Impressions: Service Date/Time: Tuesday, May 23, 2017 15:10 - CONCLUSION: 1. Moderate bilateral effusions which may be in part be loculated in the upper lobes. Huy Wright MD Ankle X-Ray 05/22/17 0800 Signed Impressions: Service Date/Time: Monday, May 22, 2017 08:34 - CONCLUSION: 1. There is no evidence of acute fracture. Huy Wright MD Brain MRI 05/21/17 0000 Signed Impressions: Service Date/Time: May 08:55 - CONCLUSION: 1. No evidence of acute intracranial pathology. No masses are identified. 2. Old left occipital infarct Huy Wright MD Wrist X-Ray 05/20/17 0000 Signed Impressions: Service Date/Time: Saturday, May 20, 2017 20:32 - CONCLUSION: Chronic changes and no evidence for acute fracture. Rubi Eckert MD Foot X-Ray 05/20/17 0000 Signed Impressions: Service Date/Time: Saturday, May 20, 2017 20:21 - CONCLUSION: Chronic changes and no evidence for acute fracture. Rubi Eckert MD Physical Exam HEENT: Normocephalic; atraumatic CHEST: Even/unlabored. CARDIAC: RRR ABDOMEN: Soft, nontender, bowel sounds active EXTREMITIES: No clubbing, cyanosis, or edema. SKIN: Normal; no rash; no jaundice. HORSE RACER: No focal deficits; alert and oriented times three. (Hilda DolanP) Assessment and Plan Assessment: (1) GI bleeding ICD Codes: K92.2 - Gastrointestinal hemorrhage, unspecified Status: Acute Plan: Possible GI bleed patient is requiring blood products today, patient is also being managed on Coumadin, INR 2.1 (2) GERD (gastroesophageal reflux disease) ICD Codes: K21.9 - Gastro-esophageal reflux disease without esophagitis (3) Iron deficiency anemia ICD Codes: D50.9 - Iron deficiency anemia, unspecified Status: Acute Plan Assessment: - Anemia probably secondary to chronic disease such as his heart disease and chronic kidney disease, acute on chronic Started on ferrous sulfate 325 mg twice a day with meals lunch and dinner., Iron level low at 14, TIBC 235, oxygen saturation 6 Normal LFTs total bilirubin 0.3, AST 12 ALT 12 alkaline phosphatase 77. (05/26) S/P EGD and colonoscopy yesterday --> Esophagitis, gastritis, poor colon prep. CT abdomen and pelvis W/O IV contrast (05/25) --> Possible apple core lesion. Will repeat colonoscopy tomorrow, with repeat prep today. Hold Coumadin. Plan - Colonoscopy tomorrow - Obtain consents - Clear liquids today - NPO after MN - GoLYTELY prep - Hold Coumadin for procedure - Continue Protonix - CEA pending - Monitor labs - Transfuse as needed - Further recommendations to follow Pt has been seen and examined by myself and Dr. Noyola and this note is written on her behalf (Hilda Dolan) Problem Qualifiers (1) Iron deficiency anemia: Qualified Codes: D50.9 - Iron deficiency anemia, unspecified Hilda Dolan May 26, 2017 14:31 Sophy Noyola MD May 26, 2017 20:14
[2017-05-26] MEDS ORDERED: PEG (High)/E-LYTE SOLN 4000 ML BTL PO ONE (16:00)
[2017-05-26] MEDS ORDERED: WARFARIN SOD 3 MG TAB PO SCH (16:00)
[2017-05-26] MEDS: TAMSULOSIN HCL 0.4 MG CAP PO SCH (20:52)
[2017-05-27] VITALS (9 sets, daily range): BP systolic 106–169; BP diastolic 65–78; PULSE 61–116; RESP 16–19; TEMP 97.5–98.5; O2SAT 95–100
[2017-05-27] MEDS: SODIUM CHLORIDE 0.9% FLUSH 10 ML FLUSH IV FLUSH SCH ×2 (07:43→21:06)
[2017-05-27] MEDS: INSULIN ASPART SUPPLEMENTAL SCALE SQ SCH ×4 (08:00→21:00)
[2017-05-27] MEDS: FAMOTIDINE 20 MG TAB PO SCH (08:33)
[2017-05-27] MEDS: PRAVASTATIN SOD 80 MG TAB PO SCH (08:33)
[2017-05-27] MEDS: SPIRONOLACTONE 25 MG TAB PO SCH (08:34)
[2017-05-27] MEDS: DOCUSATE SODIUM 50 MG/SENNA 8.6 MG TAB PO SCH ×2 (08:34→21:06)
[2017-05-27] MEDS: DIGOXIN 0.125 MG TAB PO SCH (08:34)
[2017-05-27] MEDS: COLCHICINE 0.6 MG TAB PO SCH ×2 (08:34→21:06)
[2017-05-27] MEDS: DILTIAZEM HCL 60 MG TAB PO SCH ×4 (08:35→21:05)
[2017-05-27] MEDS: METOPROLOL SUCCINATE 50 MG EXTENDED RELEASE TAB PO SCH (08:38)
[2017-05-27] MEDS: FUROSEMIDE 40 MG TAB PO SCH (08:38)
--- NOTE | 2017-05-27 09:59 | HHI.PR ---
Subjective Remarks son says pt doing much better. they are eager for rehab. spoke to poa daughter Luda. requested [facility]. Objective Vitals heart reg lung good air entry abd s/nt ext no edema Vital Signs Date Time Temp Pulse Resp B/P (MAP) Pulse Ox O2 Delivery O2 Flow Rate FiO2 05/27/17 04:00 Nasal Cannula 3.00 Bi-Pap 05/27/17 03:47 116 05/27/17 00:00 Nasal Cannula 3.00 Bi-Pap 05/27/17 00:00 98.5 91 18 108/67 (81) 96 05/26/17 23:46 84 05/26/17 20:00 Nasal Cannula 3.00 05/26/17 20:00 98.5 75 18 131/83 (99) 92 05/26/17 19:49 70 05/26/17 17:32 94 Nasal Cannula 3.00 05/26/17 16:04 98.0 68 18 109/66 (80) 94 05/26/17 16:00 82 05/26/17 12:04 98.8 74 20 128/64 (85) 94 05/26/17 12:00 75 05/26/17 11:45 3.00 Result Diagram: 05/26/17 0710 05/26/17 0710 Imaging Last Impressions Brain MRI 05/21/17 0000 Signed Impressions: Service Date/Time: May 08:55 - CONCLUSION: 1. No evidence of acute intracranial pathology. No masses are identified. 2. Old left occipital infarct Huy Wright MD Wrist X-Ray 05/20/17 0000 Signed Impressions: Service Date/Time: Saturday, May 20, 2017 20:32 - CONCLUSION: Chronic changes and no evidence for acute fracture. Rubi Eckert MD Foot X-Ray 05/20/17 0000 Signed Impressions: Service Date/Time: Saturday, May 20, 2017 20:21 - CONCLUSION: Chronic changes and no evidence for acute fracture. Rubi Eckert MD Chest X-Ray 05/20/17 0000 Signed Impressions: Service Date/Time: Saturday, May 20, 2017 17:58 - CONCLUSION: Slight CHF. Rubi Eckert MD A/P Problem List: (1) CHF (congestive heart failure) ICD Codes: I50.9 - Heart failure, unspecified Status: Acute Plan: 1. diastolic chf- s/p cabg 03/03 - CT chest reviewed and reveals: Moderated bilateral effusions which may be in part loculated in the upper lobes - US chest reveals small effusion right side approximately 176ml, not enough to drain via thoracentesis -cardiology following and continues diuresis. monitor renal function. convert to po plan for d/c to inpt rehab tomorrow. recheck bmp before d/c (2) Gout ICD Codes: M10.9 - Gout, unspecified Status: Acute Plan: pt had fevers and severe left knee pain/effusion s/p arthrocentesis per Ortho 05/24 consistent with acute gout flare. improving f/u cultures neg so far monitor progress. pt on colchicine. (3) Iron deficiency anemia ICD Codes: D50.9 - Iron deficiency anemia, unspecified Status: Acute Plan: - comgmt with GI - Pt on therapeutic on Coumadin for Afib, - Pt presented with c/o worsening generalized weakness and falls at home - found to have iron def anemia. - iron indices show iron deficiency - ferrous sulfate PO BID per GI - serum iron 14 (05/21/17) - transfused 2 units PRBCs (05/22/17) -egd gastritis/esophagitis. gi to f/u bx's colonoscopy poor prep. defer ct a/p findings to GI. repeat c scope due to ?apple core lesion in colon per CT (4) Change in mental status ICD Codes: R41.82 - Altered mental status, unspecified Status: Acute Plan: - MRI brain (05/21/17) --> old left infarct, no acute findings - clinically pt seemed A&O x 3, likely at baseline - MRI brain (05/22) --> old left occipital infarct - Case d/w pt's daughters bedside. Pt had CVA during admission for CABG Feb 2017 and increased confusion since seen by neurology (5) Right foot pain ICD Codes: M79.671 - Pain in right foot Status: Acute Plan: - right foot xray --> NO acute findings - now c/o right ankle pain, obtain plain films (6) Atrial fibrillation, chronic ICD Codes: I48.2 - Chronic atrial fibrillation Status: Chronic Plan: - INR 2.5 (1/3) - stable HR - digoxin, metoprolol, cardizem 90mg q6h -resume coumadin (7) DM2 (diabetes mellitus, type 2) ICD Codes: E11.9 - Type 2 diabetes mellitus without complications Status: Chronic Plan: - accuchecks ACHS with SSI (8) CAD (coronary artery disease) ICD Codes: I25.10 - Atherosclerotic heart disease of inupiat coronary artery without angina pectoris Status: Chronic Plan: - s/p CABG Feb 2017 - ASA, metoprolol, pravachol (9) Generalized weakness ICD Codes: R53.1 - Weakness Status: Acute Plan: - PT plan for inpt rehab (10) CKD (chronic kidney disease) stage 3, GFR 30-59 ml/min ICD Codes: N18.3 - Chronic kidney disease, stage 3 (moderate) Status: Chronic Problem Qualifiers (1) CHF (congestive heart failure): (2) Iron deficiency anemia: Qualified Codes: D50.9 - Iron deficiency anemia, unspecified (3) DM2 (diabetes mellitus, type 2): Qualified Codes: E11.8 - Type 2 diabetes mellitus with unspecified complications; Z79.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
[2017-05-27] MEDS ORDERED: PROPOFOL 200 MG/20 ML AMP IV ONE (12:00)
[2017-05-27] MEDS ORDERED: LIDOCAINE HCL 1% PF 5 ML SYRINGE OTHER ONE (12:00)
--- NOTE | 2017-05-27 12:22 | GIPROC ---
[facility] [address] [facility]. [facility], [address] COLONOSCOPY PROCEDURE REPORT EXAM DATE: 05/27/2017 PATIENT NAME: Teodora Vergara MR #: [id number] BIRTHDATE: 1940 ENDOSCOPIST: Sophy Noyola MD ORDER #: [id number] BONDING MOLDER: Dorothy Serrano and Dee Dee Scanlon STATUS: inpatient INDICATIONS: The patient is a 76 yr old male here for a colonoscopy due to abnormal ct, anemia PROCEDURE PERFORMED: Colonoscopy with biopsy MEDICATIONS: None and Per Anesthesia. PREP QUALITY: good PREP TYPE:Other: ESTIMATED BLOOD LOSS: None CONSENT: The patient understands the risks and benefits of the procedure and understands that these risks include, but are not limited to: sedation, allergic reaction, infection, perforation and/or bleeding. Alternative means of evaluation and treatment include, among others: physical exam, x-rays, and/or surgical intervention. The patient elects to proceed with this endoscopic procedure. medical equipment was checked for proper function. Hand hygiene and appropriate measures for infection prevention was taken. After the risks, benefits and alternatives of the procedure were thoroughly explained, Informed consent was verified, confirmed and timeout was successfully executed by the treatment team. A digital exam revealed external hemorrhoids The Pentax [id number] endoscope was introduced through the anus and advanced to the cecum, which was identified by both the appendix and ileocecal valve. The instrument was then slowly withdrawn as the colon was fully examined. COLON FINDINGS: Diverticulosis sigmoid,descending polyp ascending -6 mm-cold biopsy with complete removal internal/external hemorrhoids. No mass in cecum. Retroflexed views revealed internal hemorrhoids and Retroflexed views revealed medium internal hemorrhoids The scope was then completely withdrawn from the patient and the procedure terminated. PROCEDURE WITHDRAWAL TIME:15minutes ADVERSE EVENTS: There were no complications. IMPRESSIONS: 1. Diverticulosis sigmoid,descending polyp ascending -6 mm-cold biopsy with complete removal internal/external hemorrhoids 2. Retroflexed views revealed internal hemorrhoids 3. Retroflexed views revealed medium internal hemorrhoids 4. Revealed external hemorrhoids RECOMMENDATIONS: 1. Await biopsy results. Biopsy results will not be ready for 7-10 days. If you don't hear from us in two weeks, call our office for results. 2. Probiotics from any [employer] or [employer] food store 3. Yearly rectal exams 4. Ok to restart anticoagulation from gi point resume diet capsule endoscopy RECALL: Return 3 years Colonoscopy Sophy Noyola MD eSigned: Sophy Noyola MD 05/27/2017 12:22 PM cc: PATIENT NAME: Jai Namitaalcides Arita MR#: [id number]
[2017-05-27] MEDS: FERROUS SULFATE 325 MG (65 MG ELEMENTAL IRON) TAB PO SCH ×2 (13:12→16:25)
[2017-05-27] MEDS: WARFARIN SOD 3 MG TAB PO SCH (18:58)
[2017-05-27] MEDS: TAMSULOSIN HCL 0.4 MG CAP PO SCH (21:06)
[2017-05-28] VITALS (8 sets, daily range): BP systolic 124–186; BP diastolic 60–93; PULSE 62–120; RESP 16–20; TEMP 97.8–98.4; O2SAT 92–100
[2017-05-28] MEDS: INSULIN ASPART SUPPLEMENTAL SCALE SQ SCH ×4 (08:44→21:00)
[2017-05-28] MEDS: SPIRONOLACTONE 25 MG TAB PO SCH (08:47)
[2017-05-28] MEDS: COLCHICINE 0.6 MG TAB PO SCH ×2 (08:47→21:23)
[2017-05-28] MEDS: DIGOXIN 0.125 MG TAB PO SCH (08:47)
[2017-05-28] MEDS: FAMOTIDINE 20 MG TAB PO SCH (08:47)
[2017-05-28] MEDS: PRAVASTATIN SOD 80 MG TAB PO SCH (08:47)
[2017-05-28] MEDS: DOCUSATE SODIUM 50 MG/SENNA 8.6 MG TAB PO SCH ×2 (08:47→21:24)
[2017-05-28] MEDS: FUROSEMIDE 40 MG TAB PO SCH (08:47)
[2017-05-28] MEDS: DILTIAZEM HCL 60 MG TAB PO SCH ×4 (08:48→21:24)
[2017-05-28] MEDS: SODIUM CHLORIDE 0.9% FLUSH 10 ML FLUSH IV FLUSH SCH ×2 (08:48→21:25)
[2017-05-28] MEDS: METOPROLOL SUCCINATE 50 MG EXTENDED RELEASE TAB PO SCH (08:48)
--- NOTE | 2017-05-28 09:18 | HHI.PR ---
Subjective Remarks c/o alot of noise in hallway last night eager for rehab Objective Vitals heart reg lung good air entry abd s/nt ext no pitting Vital Signs Date Time Temp Pulse Resp B/P (MAP) Pulse Ox O2 Delivery O2 Flow Rate FiO2 05/28/17 08:00 97.8 106 20 186/93 (124) 92 05/28/17 04:00 98.4 72 16 124/72 (89) 95 05/28/17 04:00 Bi-Pap 3.00 05/28/17 03:50 86 05/28/17 02:29 Nasal Cannula 3.00 05/28/17 00:00 98.3 84 16 148/68 (94) 94 05/28/17 00:00 Bi-Pap 3.00 05/27/17 23:50 83 05/27/17 20:00 97.9 72 16 143/65 (91) 97 05/27/17 20:00 Nasal Cannula 3.00 05/27/17 19:49 61 05/27/17 16:10 98.0 88 18 152/66 (94) 100 05/27/17 15:52 78 05/27/17 12:30 89 18 151/72 (98) 98 05/27/17 12:10 97.5 89 18 169/78 (108) 100 05/27/17 11:57 98.0 90 18 151/72 (98) 97 Result Diagram: 05/26/17 0710 05/26/17 0710 Imaging Last Impressions Brain MRI 05/21/17 0000 Signed Impressions: Service Date/Time: May 08:55 - CONCLUSION: 1. No evidence of acute intracranial pathology. No masses are identified. 2. Old left occipital infarct Huy Wright MD Wrist X-Ray 05/20/17 0000 Signed Impressions: Service Date/Time: Saturday, May 20, 2017 20:32 - CONCLUSION: Chronic changes and no evidence for acute fracture. Rubi Eckert MD Foot X-Ray 05/20/17 0000 Signed Impressions: Service Date/Time: Saturday, May 20, 2017 20:21 - CONCLUSION: Chronic changes and no evidence for acute fracture. Rubi Eckert MD Chest X-Ray 05/20/17 0000 Signed Impressions: Service Date/Time: Saturday, May 20, 2017 17:58 - CONCLUSION: Slight CHF. K. Juan Miguel Eckert MD A/P Problem List: (1) CHF (congestive heart failure) ICD Codes: I50.9 - Heart failure, unspecified Status: Acute Plan: 1. diastolic chf- s/p cabg 03/03 - CT chest reviewed and reveals: Moderated bilateral effusions which may be in part loculated in the upper lobes - US chest reveals small effusion right side approximately 176ml, not enough to drain via thoracentesis -cardiology following and continues diuresis. monitor renal function. convert to po plan for d/c to inpt rehab today....still waiting for bloodwork...ordered yesterday and today but still not available. (2) Gout ICD Codes: M10.9 - Gout, unspecified Status: Acute Plan: pt had fevers and severe left knee pain/effusion s/p arthrocentesis per Ortho 05/24 consistent with acute gout flare. improving f/u cultures neg so far monitor progress. pt on colchicine. (3) Iron deficiency anemia ICD Codes: D50.9 - Iron deficiency anemia, unspecified Status: Acute Plan: - comgmt with GI - Pt on therapeutic on Coumadin for Afib, - Pt presented with c/o worsening generalized weakness and falls at home - found to have iron def anemia. - iron indices show iron deficiency - ferrous sulfate PO BID per GI - serum iron 14 (05/21/17) - transfused 2 units PRBCs (05/22/17) -egd gastritis/esophagitis. gi to f/u bx's colonoscopy poor prep. defer ct a/p findings to GI. repeat c scope due to ?apple core lesion in colon per CT.........diverticulosis, hemorrhoids,polyp...ok to resume coumadin. (4) Change in mental status ICD Codes: R41.82 - Altered mental status, unspecified Status: Acute Plan: - MRI brain (05/21/17) --> old left infarct, no acute findings - clinically pt seemed A&O x 3, likely at baseline - MRI brain (05/22) --> old left occipital infarct - Case d/w pt's daughters bedside. Pt had CVA during admission for CABG Feb 2017 and increased confusion since seen by neurology (5) Right foot pain ICD Codes: M79.671 - Pain in right foot Status: Acute Plan: - right foot xray --> NO acute findings - now c/o right ankle pain, obtain plain films (6) Atrial fibrillation, chronic ICD Codes: I48.2 - Chronic atrial fibrillation Status: Chronic Plan: - INR 2.5 (/) - stable HR - digoxin, metoprolol, cardizem 90mg q6h -resume coumadin (7) DM2 (diabetes mellitus, type 2) ICD Codes: E11.9 - Type 2 diabetes mellitus without complications Status: Chronic Plan: - accuchecks ACHS with SSI (8) CAD (coronary artery disease) ICD Codes: I25.10 - Atherosclerotic heart disease of [place] coronary artery without angina pectoris Status: Chronic Plan: - s/p CABG Feb 2017 - ASA, metoprolol, pravachol (9) Generalized weakness ICD Codes: R53.1 - Weakness Status: Acute Plan: - PT plan for inpt rehab (10) CKD (chronic kidney disease) stage 3, GFR 30-59 ml/min ICD Codes: N18.3 - Chronic kidney disease, stage 3 (moderate) Status: Chronic Problem Qualifiers (1) CHF (congestive heart failure): (2) Iron deficiency anemia: Qualified Codes: D50.9 - Iron deficiency anemia, unspecified (3) DM2 (diabetes mellitus, type 2): Qualified Codes: E11.8 - Type 2 diabetes mellitus with unspecified complications; Z79.4 - senior care (current) use of insulin (4) CAD (coronary artery disease): Qualified Codes: I25.10 - Atherosclerotic heart disease of [place] coronary artery without angina pectoris Julian Joseph MD May 28, 2017 09:18
[2017-05-28] MEDS ORDERED: NOVOLOGSS SQ (09:23)
--- NOTE | 2017-05-28 09:24 | HHI.DCPOC ---
Discharge Care Plan Diagnosis: (1) CHF (congestive heart failure) (2) Gout (3) CKD (chronic kidney disease) stage 3, GFR 30-59 ml/min (4) GI bleeding (5) DM2 (diabetes mellitus, type 2) (6) Atrial fibrillation, chronic (7) CAD (coronary artery disease) Goals to Promote Your Health * To prevent worsening of your condition and complications * To maintain your health at the optimal level Directions to Meet Your Goals Take your medications as prescribed Follow your dietary instruction Follow activity as directed Keep your appointments as scheduled Take your immunizations and boosters as scheduled If your symptoms worsen call your PCP, if no PCP go to Urgent Care Center or Emergency Room Smoking is Dangerous to Your Health. Avoid second hand smoke Call the 24-hour hour crisis hotline for domestic abuse at Julian Joseph MD May 28, 2017 09:24
--- NOTE | 2017-05-28 10:08 | PD.ORT.PN ---
Subjective Subjective Remarks Continuing to improve with pain and range of motion of the knee. Watched him walk across room with PT. Objective Vitals Vital Signs Date Time Temp Pulse Resp B/P (MAP) Pulse Ox O2 Delivery O2 Flow Rate FiO2 05/28/17 08:00 97.8 106 20 186/93 (124) 92 05/28/17 04:00 98.4 72 16 124/72 (89) 95 05/28/17 04:00 Bi-Pap 3.00 05/28/17 03:50 86 05/28/17 02:29 Nasal Cannula 3.00 05/28/17 00:00 98.3 84 16 148/68 (94) 94 05/28/17 00:00 Bi-Pap 3.00 05/27/17 23:50 83 05/27/17 20:00 97.9 72 16 143/65 (91) 97 05/27/17 20:00 Nasal Cannula 3.00 05/27/17 19:49 61 05/27/17 16:10 98.0 88 18 152/66 (94) 100 05/27/17 15:52 78 05/27/17 12:30 89 18 151/72 (98) 98 05/27/17 12:10 97.5 89 18 169/78 (108) 100 05/27/17 11:57 98.0 90 18 151/72 (98) 97 I/O 05/27/17 05/27/17 05/27/17 05/28/17 05/28/17 05/28/17 07:00 15:00 23:00 07:00 15:00 23:00 Intake Total 300 ml 280 ml 360 ml Output Total 400 ml Balance 300 ml 280 ml -40 ml Intake Oral 280 ml 360 ml Other 300 ml Output Urine Total 400 ml # Voids 3 4 # Bowel Movements 5 2 Result Diagram: 05/26/17 0710 05/26/17 0710 Imaging Last 24 hours Impressions Chest X-Ray 05/24/17 0000 Signed Impressions: Service Date/Time: Wednesday, May 24, 2017 10:30 - CONCLUSION: No significant change compared to 05/22/17. Nir Ayala MD Chest Ultrasound 05/24/17 0000 Signed Impressions: Service Date/Time: Wednesday, May 24, 2017 10:37 - CONCLUSION: 1. Small right effusion Huy Wright MD Procedures After informed consent left knee aspiration is performed. Left knee is sterilely prepped with alcohol and ChloraPrep and a 20-gauge spinal needle is used through superior lateral approach and a 40 cc of straw-colored synovial fluid is withdrawn. Patient tolerates procedure well. Sterile bandages placed upon it. Samples are sent to lab Objective Remarks Examination of the left lower extremity reveals no pain with hip or ankle range of motion. Knee range of motion is from 5 to 100. He has mild swelling superior to the knee. Skin is intact and no erythema or drainage Distally he has intact sensation good capillary refills and strong dorsiflexion plantar flexion of foot. Assessment & Plan Assessment and Plan Left knee effusion--appears to be gout Cultures pending Continue Medical management and PT for ROM of knee. WBAT B LE No further Orthopedic follow up needed Irvin Ervin Jr. May 28, 2017 10:08
[2017-05-28] MEDS: FERROUS SULFATE 325 MG (65 MG ELEMENTAL IRON) TAB PO SCH ×2 (12:34→16:58)
[2017-05-28 12:46] LABS: INTERNATIONAL NORMALIZED RATIO 1.3 RATIO; PROTHROMBIN TIME - PATIENT 13.2 SEC (9.8-11.6)
[2017-05-28 12:58] LABS: BICARBONATE 25.8 MEQ/L (21.0-32.0); CALCIUM 9.5 MG/DL (8.5-10.1); CREATININE 2.1 MG/DL (0.60-1.30)
[2017-05-28] MEDS: WARFARIN SOD 3 MG TAB PO SCH (16:58)
[2017-05-28] MEDS: TAMSULOSIN HCL 0.4 MG CAP PO SCH (21:23)
[2017-05-29] VITALS: BP 124/62; PULSE 66; RESP 21; TEMP 97.9; O2SAT 95
[2017-05-29 00:09] VITALS: PULSE 69
[2017-05-29 04:00] VITALS: BP 125/58; PULSE 57; RESP 20; TEMP 97.9; O2SAT 95
[2017-05-29 04:05] VITALS: PULSE 69
[2017-05-29 08:00] VITALS: BP 140/65; PULSE 76; RESP 18; TEMP 97.5; O2SAT 98
[2017-05-29] MEDS: INSULIN ASPART SUPPLEMENTAL SCALE SQ SCH ×2 (08:00→13:15)
[2017-05-29] MEDS: DIGOXIN 0.125 MG TAB PO SCH (09:12)
[2017-05-29] MEDS: DILTIAZEM HCL 60 MG TAB PO SCH ×2 (09:12→13:15)
[2017-05-29] MEDS: FUROSEMIDE 40 MG TAB PO SCH (09:12)
[2017-05-29] MEDS: COLCHICINE 0.6 MG TAB PO SCH (09:12)
[2017-05-29] MEDS: PRAVASTATIN SOD 80 MG TAB PO SCH (09:12)
[2017-05-29] MEDS: SPIRONOLACTONE 25 MG TAB PO SCH (09:12)
[2017-05-29] MEDS: SODIUM CHLORIDE 0.9% FLUSH 10 ML FLUSH IV FLUSH SCH (09:12)
[2017-05-29] MEDS: FAMOTIDINE 20 MG TAB PO SCH (09:12)
[2017-05-29] MEDS: METOPROLOL SUCCINATE 50 MG EXTENDED RELEASE TAB PO SCH (09:12)
[2017-05-29] MEDS: DOCUSATE SODIUM 50 MG/SENNA 8.6 MG TAB PO SCH (09:12)
--- NOTE | 2017-05-29 10:51 | HHI.DS ---
Discharge Summary Admission Date May 20, 2017 at 19:31 Discharge Date: May 29, 2017 Admitting Diagnosis CHF exacerbation (1) CHF (congestive heart failure) Diagnosis: Principal ICD Codes: I50.9 - Heart failure, unspecified Status: Acute (2) Gout Diagnosis: Principal ICD Codes: M10.9 - Gout, unspecified Status: Acute (3) Iron deficiency anemia Diagnosis: Principal ICD Codes: D50.9 - Iron deficiency anemia, unspecified Status: Acute (4) Change in mental status Diagnosis: Principal ICD Codes: R41.82 - Altered mental status, unspecified Status: Acute (5) Atrial fibrillation, chronic Diagnosis: Secondary ICD Codes: I48.2 - Chronic atrial fibrillation Status: Chronic (6) DM2 (diabetes mellitus, type 2) Diagnosis: Secondary ICD Codes: E11.9 - Type 2 diabetes mellitus without complications Status: Chronic (7) CAD (coronary artery disease) Diagnosis: Secondary ICD Codes: I25.10 - Atherosclerotic heart disease of [place] coronary artery without angina pectoris Status: Chronic (8) Generalized weakness Diagnosis: Secondary ICD Codes: R53.1 - Weakness Status: Acute (9) CKD (chronic kidney disease) stage 3, GFR 30-59 ml/min Diagnosis: Secondary ICD Codes: N18.3 - Chronic kidney disease, stage 3 (moderate) Status: Chronic Brief History 76-year-old man who presents to the emergency department complaining of increasing lower extremity edema, weakness, and falls. He had a CABG done on February 25 emergently. Had prolonged hospital stay and has had significant debility since then. He's been home for the past week or 2. He's had increased weakness, lower extremity edema, frequent falls and has had significant confusion calling out names of people. He is in the ED. Family is been working with this pillowcase [employer] [facility] to healthcare to go back into [facility]. He's had several falls or past couple days, is unable to walk now, and so his family brought him to the emergency department today. Does complain of some shortness of breath. No fevers or chills. No chest pain. No other complaints. Patient unable to stand upright without falling . Patient was to go to [facility] ,but now has the confusion problems. CBC/BMP: 05/26/17 0710 05/28/17 1132 Significant Findings Laboratory Tests Test 05/26/17 17:09 05/28/17 11:32 Prothrombin Time 13.2 SEC (9.8-11.6) Blood Urea Nitrogen 26 MG/DL (7-18) Creatinine 2.10 MG/DL (0.60-1.30) Random Glucose 162 MG/DL (74-106) Sodium Level 135 MEQ/L (136-145) Chloride Level 97 MEQ/L (98-107) Estimat Glomerular Filtration Rate 31 ML/MIN (>89) Hospital Course (1) CHF (congestive heart failure) 1. diastolic chf- s/p cabg 03/03 - CT chest reviewed and reveals: Moderated bilateral effusions which may be in part loculated in the upper lobes - US chest reveals small effusion right side approximately 176ml, not enough to drain via thoracentesis -cardiology following and continues diuresis. monitor renal function. converted to po lasix daily d/c to inpatient rehab today. (2) Gout pt had fevers and severe left knee pain/effusion s/p arthrocentesis per Ortho 05/24 consistent with acute gout flare. improving f/u cultures neg so far monitor progress. can stop colchicine. resume if knee swelling comes back. (3) Iron deficiency anemia - comgmt with GI - Pt on therapeutic on Coumadin for Afib, - Pt presented with c/o worsening generalized weakness and falls at home - found to have iron def anemia. - iron indices show iron deficiency - ferrous sulfate PO BID per GI - serum iron 14 (05/21/17) - transfused 2 units PRBCs (05/22/17) -egd gastritis/esophagitis. gi to f/u bx's colonoscopy poor prep. defer ct a/p findings to GI. repeat c scope due to ?apple core lesion in colon per CT.........diverticulosis, hemorrhoids,polyp...ok to resume coumadin. (4) Change in mental status - MRI brain (05/21/17) --> old left infarct, no acute findings - clinically pt seemed A&O x 3, likely at baseline - MRI brain (05/22) --> old left occipital infarct - Case d/w pt's daughters bedside. Pt had CVA during admission for CABG Feb 2017 and increased confusion since seen by neurology and currently stable (5) Right foot pain - right foot xray --> NO acute findings - right ankle pain better. (6) Atrial fibrillation, chronic ICD Codes: I48.2 - Chronic atrial fibrillation Status: Chronic Plan: - INR 2.5 (/) - stable HR - digoxin, metoprolol, cardizem 90mg q6h -resume coumadin and monitor while in rehab (7) DM2 (diabetes mellitus, type 2) ICD Codes: E11.9 - Type 2 diabetes mellitus without complications Status: Chronic Plan: - accuchecks ACHS with SSI. can resume his home insulin after rehab (8) CAD (coronary artery disease) - s/p CABG Feb 2017 - ASA, metoprolol, pravachol (9) Generalized weakness ICD Codes: R53.1 - Weakness Status: Acute Plan: - PT plan for inpt rehab (10) CKD (chronic kidney disease) stage 3, GFR 30-59 ml/min ICD Codes: N18.3 - Chronic kidney disease, stage 3 (moderate) Status: Chronic Pt Condition on Discharge: Stable Discharge Disposition: Rehab Inpatient Discharge Instructions DIET: Follow Instructions for: Diabetic Diet Speech Therapy-Diet Recommends: Regular Activities you can perform: Regular-No Restrictions Follow up Referrals: Appointment for Follow Up @ [facility] - [address] roberto carlos newman [facility] @ [facility] - 2 Weeks with Sophy Noyola MD New Medications: Insulin Aspart Inj (Novolog Inj) 100 Unit/Ml Inj 2-12 UNIT SQ ACHS SLIDING SCALE for insulin for 7 Days, INJECTION Continued Medications: Albuterol 18 GM Inh (Ventolin Hfa 18 GM Inh) 90 Mcg/Act Aer 1 PUFF INH Q4H PRN for SHORTNESS OF BREATH, #1 INHALER 0 Refills Allopurinol (Allopurinol) 100 Mg Tab 100 MG PO DAILY for Gout, TAB 0 Refills Digoxin (Digoxin) 0.125 Mg Tab 0.125 MG PO DAILY for Regulate Heart Beat, #30 TAB 0 Refills Diltiazem (Cardizem) 60 Mg Tab 90 MG PO QID for Angina, #180 TAB 0 Refills Famotidine (Famotidine) 20 Mg Tab 20 MG PO DAILY, #60 TAB 0 Refills Furosemide (Furosemide) 40 Mg Tab 40 MG PO DAILY, #30 TAB 0 Refills Metoprolol Succinate ER 24 HR (Metoprolol Succinate ER 24 HR) 100 Mg Tab 50 MG PO BID, TAB 0 Refills Simvastatin (Zocor) 40 Mg Tab 40 MG PO DAILY for Cholesterol Management, TAB 0 Refills Spironolactone (Spironolactone) 25 Mg Tab 12.5 MG PO DAILY, #15 TAB 0 Refills Tamsulosin (Tamsulosin) 0.4 Mg Cap 0.4 MG PO HS for Manage Prostate Problems, #30 CAP 0 Refills Warfarin (Warfarin) 3 Mg Tab 3 MG PO DAILY for Blood Clot Prevention, #30 TAB 0 Refills Discontinued Medications: Insulin Glargine (Basaglar Kwikpen) 100 Unit/Ml Pen 1 UNITS SQ DAILY for Blood Sugar Management, #5 PEN 0 Refills Julian Joseph MD May 29, 2017 10:51
[2017-05-29 12:00] VITALS: BP 142/65; PULSE 64; RESP 17; TEMP 97.5; O2SAT 93
[2017-05-29] MEDS: FERROUS SULFATE 325 MG (65 MG ELEMENTAL IRON) TAB PO SCH (13:15)
== END 2017-05-29 14:35 | DRG 291 ==
LOC: NEPC 16:42 → NEDA 19:31 → N04B 20:59 → UNDODISIN 05-29 12:02
PROVIDERS: ADMIT Hospitalist; ATTEND Hospitalist
PROC: 30233N1 Transfusion of Nonautologous Red Blood Cells into Peripheral Vein, Percutaneous Approach (ICD-10-PCS; 2017-05-21)
PROC: 0S9D3ZX Drainage of Left Knee Joint, Percutaneous Approach, Diagnostic (ICD-10-PCS; principal; 2017-05-24)
PROC: 0DB98ZX Excision of Duodenum, Via Natural or Artificial Opening Endoscopic, Diagnostic (ICD-10-PCS; 2017-05-25)
PROC: 0DB68ZX Excision of Stomach, Via Natural or Artificial Opening Endoscopic, Diagnostic (ICD-10-PCS; 2017-05-25)
PROC: 0DB38ZX Excision of Lower Esophagus, Via Natural or Artificial Opening Endoscopic, Diagnostic (ICD-10-PCS; 2017-05-25)
PROC: 0DJD8ZZ Inspection of Lower Intestinal Tract, Via Natural or Artificial Opening Endoscopic (ICD-10-PCS; 2017-05-25 10:00)
PROC: 0DBK8ZX Excision of Ascending Colon, Via Natural or Artificial Opening Endoscopic, Diagnostic (ICD-10-PCS; 2017-05-27)
DX: I13.0 Hypertensive heart and chronic kidney disease with heart failure and stage 1 through stage 4 chronic kidney disease, or unspecified chronic kidney disease (principal); I50.33 Acute on chronic diastolic (congestive) heart failure; N17.9 Acute kidney failure, unspecified; A68.9 Relapsing fever, unspecified; E11.22 Type 2 diabetes mellitus with diabetic chronic kidney disease; K92.2 Gastrointestinal hemorrhage, unspecified; I48.2 Chronic atrial fibrillation; N18.3 Chronic kidney disease, stage 3 (moderate); Z95.1 Presence of aortocoronary bypass graft; I25.10 Atherosclerotic heart disease of native coronary artery without angina pectoris; R29.6 Repeated falls; D63.8 Anemia in other chronic diseases classified elsewhere; D63.1 Anemia in chronic kidney disease; M79.671 Pain in right foot; K21.0 Gastro-esophageal reflux disease with esophagitis; K59.09 Other constipation; W19.XXXA Unspecified fall, initial encounter; Y92.009 Unspecified place in unspecified non-institutional (private) residence as the place of occurrence of the external cause; R50.9 Fever, unspecified; R41.82 Altered mental status, unspecified; R53.1 Weakness; M10.9 Gout, unspecified; K29.70 Gastritis, unspecified, without bleeding; Z86.73 Personal history of transient ischemic attack (TIA), and cerebral infarction without residual deficits; Z79.01 Long term (current) use of anticoagulants; K44.9 Diaphragmatic hernia without obstruction or gangrene; K64.8 Other hemorrhoids; K63.5 Polyp of colon; K57.30 Diverticulosis of large intestine without perforation or abscess without bleeding
CPT/HCPCS: 10061; 36430; 70551; 71045; 71046; 71250; 73110; 73564; 73610; 73630; 74176; 76604; 80048; 80053; 81001; 82140; 82272; 82378; 82607; 82728; 82746; 82948; 83540; 83550; 83615; 83735; 83880; 84165; 84439; 84443; 85007; 85025; 85027; 85610; 85652; 85730; 86038; 86140; 86430; 86592; 86850; 86900; 86901; 86920; 87040; 87070; 87086; 87205; 88305; 88312; 89051; 89060; 93005; 93306; 96374; J1815; J1940; J2370; P9016; Q9963

== ENCOUNTER → 2017-09-09 | Outpatient (CLI) | payer MEDICARE ==
[~2017-09-09] MED LIST changes: -ASPI81TA23 PO; +COUM2.5T PO; -DILT60TA33 PO; +DILT90TA PO; +FURO20TA PO; -FURO40TA PO; -INSU1INJ18 SQ; -METO1TAB43 PO; +METO1TAB9 PO; -WARF-58 PO
[2017-09-09 16:34] LABS: INTERNATIONAL NORMALIZED RATIO 1.5 RATIO; PROTHROMBIN TIME - PATIENT 15.4 SEC (9.8-11.6)
== END ==
LOC: CLAB 15:51
PROVIDERS: ATTEND Family Medicine
DX: I48.91 Unspecified atrial fibrillation (principal)
CPT/HCPCS: 36415; 85610

== ENCOUNTER 2017-10-23 05:54 | Day surgery (SDC) | payer MEDICARE ==
[2017-10-23] VITALS (11 sets, daily range): BP systolic 140–152; BP diastolic 55–99; PULSE 76–114; RESP 18–20; TEMP 97.6–98.6; O2SAT 93–98
[~2017-10-23] VITALS: Ht 182.9 cm; Wt 103.0 kg
[2017-10-23] MEDS ORDERED: CHLORHEXIDINE GLUCONATE 2 % 1 PACK (2 CLOTHS) TOPICAL PRN (06:45)
[2017-10-23] MEDS ORDERED: LORazepam 1 MG TAB SL SCH (06:45)
[2017-10-23] MEDS ORDERED: LACTATED RINGER'S 1000 ML IV PRN (06:45)
[2017-10-23] MEDS ORDERED: POVIDONE IODINE 5% (ANTISEPSIS KIT) 4 APPLICATIONS EACH NARE PRN (06:45)
[2017-10-23] MEDS ORDERED: METOPROLOL TARTRATE 25 MG TAB PO PRN (06:45)
[2017-10-23] MEDS ORDERED: SODIUM CHLORID 0.9% 500 ML IV PRN (06:45)
[2017-10-23 06:54] LABS: BASOPHIL # 0.1 TH/MM3 (0-0.2); BASOPHIL % 0.9 % (0.0-2.0); EOSINOPHIL # 0.3 TH/MM3 (0-0.4); EOSINOPHIL % 2.6 % (0.0-4.0); HEMATOCRIT 34.4 % (39.0-51.0); HEMOGLOBIN 11.1 GM/DL (13.0-17.0); LYMPH % 36.6 % (9.0-44.0); LYMPHOCYTE # 3.7 TH/MM3 (1.0-4.8); MEAN CELL VOLUME 79.1 FL (80.0-100.0); MEAN CORPUSCULAR HEMOGLOBIN 25.5 PG (27.0-34.0); MEAN CORPUSCULAR HGB CONC 32.3 % (32.0-36.0); MEAN PLATELET VOLUME 7.4 FL (7.0-11.0); NEUT % 49.9 % (16.0-70.0); PLATELET COUNT 207 TH/MM3 (150-450); RED BLOOD COUNT 4.35 MIL/MM3 (4.50-5.90); RED CELL DISTRIBUTION WIDTH 18.5 % (11.6-17.2); WHITE BLOOD COUNT 10.1 TH/MM3 (4.0-11.0)
[2017-10-23 07:04] LABS: INTERNATIONAL NORMALIZED RATIO 1.7 RATIO; PROTHROMBIN TIME - PATIENT 17.4 SEC (9.8-11.6)
[2017-10-23] MEDS ORDERED: MIDAZOLAM HCL 2 MG/2 ML VIAL ONE (07:05)
[2017-10-23 07:10] LABS: BICARBONATE 24.4 MEQ/L (21.0-32.0); CALCIUM 9.3 MG/DL (8.5-10.1); CREATININE 1.79 MG/DL (0.60-1.30)
[2017-10-23] MEDS ORDERED: SPIR25TA PO (07:13)
[2017-10-23] MEDS ORDERED: FERR325T18 PO (07:13)
[2017-10-23] MEDS ORDERED: FOLI1TAB6 PO (07:13)
[2017-10-23] MEDS ORDERED: CARD240C6 PO (07:13)
[2017-10-23] MEDS ORDERED: NITR1SUB3 SL (07:13)
[2017-10-23] MEDS ORDERED: COUM5TAB PO (07:13)
[2017-10-23] MEDS ORDERED: DOCU50CA5 PO (07:13)
[2017-10-23] MEDS ORDERED: METO1TAB43 PO (07:13)
[2017-10-23] MEDS: SODIUM CHLORID 0.9% 500 ML INJ 500 ML IV SCH ×2 (07:29→16:27)
[2017-10-23] MEDS ORDERED: LEVOFLOXACIN 500 MG PREMIX INJ 100 ML IV ONE ×2 (07:58→08:02)
[2017-10-23] MEDS ORDERED: ISOPROTERENOL INJ PREMIX 50 ML IV ONE (08:07)
[2017-10-23] MEDS ORDERED: HEPARIN-D5W 25,000 U/250 ML 250 ML ONE ×2 (08:08→08:09)
[2017-10-23] MEDS ORDERED: PROTAMINE SULFATE 50 MG/5 ML VIAL ONE (08:08)
[2017-10-23] MEDS ORDERED: HEPARIN SODIUM - IV 10,000 UNITS/10 ML VIAL ONE (08:08)
[2017-10-23] MEDS ORDERED: HEPARIN-NS/PF INJ 1,500 ML ONE (08:30)
--- NOTE | 2017-10-23 09:41 | CATHPROC ---
Patient Name: DAYSI MOURA Study #: [id number] Initial MD: Miguel Yeung Date of : 1940 Study Date: 10/23/2017 Cardiac Catheterization Report 10/23/2017 9:48:03 AM Financial #: [id number] 1 of 10 Patient Name: DAYSI MOURA Study #: [id number] Initial MD: Miguel Yeung Date of : 1940 Study Date: 10/23/2017 Entire Case Report Patient Information Patient Name DAYSI MOURA Date of 1940 Age 77 years Financial # [id number] Gender M AlternateID Lab Number 2 Room Number DC06 Height (in) 72.0 Height (cm) 182.9 BSA 2.21 Weight (lbs) 216.7 Weight (kg) 98.5 Patient Address/Phone Number Home Address [facility] Home Phone Number [phone] [facility] [address] Study Information Study Number Admission Scheduled Start Study Start [id number] Oct 23 2017 5:54AM 10/23/2017 Oct 23 2017 6:59AM [place] [facility] Electrophysiology Study Admit Source Facility Department Other [facility] - Realtime Reporter Physician and Clinical Staff Initial Miguel Perry Gold And Silver Assayer Terri Root RCIS Gold And Silver Assayer Kenna Fuentes,RT(R) TECH2 Other Anesthesia, HAT BODY INSPECTOR Recorder Ban Robert,CHANTAL Scrub Mindy Justice,LIFT BUILDER WHOLE TECH2 Procedures Performed Procedure Location (Site) Vessel Name Ablation Procedure Cardioversion ICE CATHETER INSERT RA Atruim RF Ablation LT. ATRIUM LT. ATRIUM 10/23/2017 9:48:03 AM Financial #: [id number] 2 of 10 Patient Name: DAYSI MOURA Study #: [id number] Initial MD: Miguel Yeung Date of : 1940 Study Date: 10/23/2017 Equipment Time Experimental Mechanic Spacecraft Description Size Mfg Part Number Used/Scraped NEEDLE, TRANSSEPTAL NRG 98 [id number] 08:11 [facility] Used C1 *[id number] [employer]/ EP [id number] 08:11 KIT, TRANSDUCER / AFIB Used PACER *[id number] SET, COOL POINT TUBING 08:33 [facility] *[id number] Used BUNDLE BUNDLE COVER, TRANSDUCER CABLE 612-113 08:11 [employer] Used ACUNAV *[id number] 08:11 CORDIS/PACER SHEATH, FR10 ANSON 11CM FR 10 Used *[id number] 08:33 CORDIS/PACER SHEATH, FR9 ANSON 11CM FR 9 [id number] Used [id number] 08:33 [employer] BLANKET,WARM AIR CCL * Used *[id number] 08:11 [employer] PACK, CCL CUSTOM * Used *[id number] 08:11 [facility] PACER AVALOS, LIMB * 2530 *[id number] Used 08:11 [employer] MEDICAL SHEATH, FR5.5 PRELUDE 11CM FR 5 [id number] Used [id number] 08:11 NAMIC TUBING, HIGH PRESSURE 20" 20" Used *[id number] 08:33 NAMIC TUBING, HIGH PRESSURE 48" 48" Used *[id number] 08:33 NAMIC TUBING, HIGH PRESSURE 48" 48" Used *[id number] CATHETER, TACTICATH ABLAT [id number] 08:32 [facility] Used 65 *[id number] 08:26 [facility] CATHETER, FR7 OPTIMA SPIRAL FR7 63683 *[id number] Used 289251 08:11 [facility] MED[facility] CATHETER, JSN, QUAD FR 5 Used *[id number] 892355 08:11 [facility] MEDICAL CATHETER, JSN, QUAD FR 5 Used *[id number] [id number] 08:11 [facility] ELECTRODE KIT, WILDER X SURFACE * Used *0191856 08:11 [facility] SET, COOL POINT TUBING 48013 *6864571 Used 716629 08:11 [facility] SHEATH, EPS, FR6 FAST CATH FR 6 Used *4346614 08:11 [facility] SHEATH, EPS, FR7 FAST CATH FR 7 [id number] Used 998358 08:11 [facility] SHEATH, EPS, FR8 FAST CATH FR 8 Used *[id number] SHEATH, FR8.5 STEERABLE SM 08:20 [facility] 71CM [id number] Used 71CM CATHETER, ACUNAV FR10 ICE [id number] 08:19 MELINA FR 10 Used (MELINA) *[id number] [facility] PAD, ELECTROSURGICAL 08:11 * [id number] *[id number] Used SURGICAL GROUNDING (BLUE) 10/23/2017 9:48:03 AM Financial #: [id number] 3 of 10 Patient Name: DAYSI MOURA Study #: [id number] Initial MD: Miguel Yeung Date of : 1940 Study Date: 10/23/2017 Insurance Information Insurance Payor Medicare Third Republican Third Republican Number MEDICARE A B MCRAB History: Allergies Allergy Reaction Sulfa (Sulfonamide Antibiotics) History: Risk Factors Hypertension Dyslipidemia Previous Heart Failure Yes Yes Yes Prior CABG Yes Labs Hgb (g/dl) Hct (%) RBC (MIL/MM3) WBC (l/cumm) Platelets (thousands) 11.60-17.00 35.00-51.00 4.00-5.90 4.00-11.00 150.00-450.00 11.0 34 4.3 10 207 Glucose (mg/dl) BUN (mg/dl) Creatinine (mg/dl) BUN:Creatinine (1:x) 74.00-106.00 7.00-18.00 0.50-1.30 10.00-20.00 101 38 1.8 21.1 Na (meq/l) K (meq/l) 136.00-145.00 3.50-5.10 142 4.4 INR (PTT:PT) 0.90-1.10 1.7 Medication Medication Total Dose (Bolus/Oral) Medication Total Dosage/Unit 1% XYLOCAINE 40 mL HEPARIN 13527 units PROTAMINE 40 mg 10/23/2017 9:48:03 AM Financial #: [id number] 4 of 10 Patient Name: DAYSI MOURA Study #: [id number] Initial MD: Miguel Yeung Date of : 1940 Study Date: 10/23/2017 Medications (Bolus/Oral) Medication Time Given Dosage/Unit Administered By Reason 1% XYLOCAINE 10/23/2017 8:07:40 AM 20 mL Miguel Yeung 20 mL 1% XYLOCAINE given in lab by Miguel Yeung in Left Groin via Subcutaneous. 1% XYLOCAINE 10/23/2017 8:15:00 AM 20 mL Miguel Yeung 20 mL 1% XYLOCAINE given in lab by Miguel Yeung in Right Groin via Subcutaneous. HEPARIN 10/23/2017 8:20:45 AM 32626 units Anesthesia, HAT BODY INSPECTOR As per physicians ve rbal order 00748 units HEPARIN given in lab by Anesthesia, HAT BODY INSPECTOR via Peripheral IV. Ordered by Miguel Yeung. [place] son: As per physicians verbal order. HEPARIN 10/23/2017 8:34:42 AM 3000 units Anesthesia, HAT BODY INSPECTOR As per physicians ve rbal order 3000 units HEPARIN given in lab by Anesthesia, HAT BODY INSPECTOR via Peripheral IV. Ordered by Miguel Yeung. Reas on: As per physicians verbal order. PROTAMINE 10/23/2017 9:35:25 AM 40 mg Anesthesia, HAT BODY INSPECTOR As per physicians verb al order 40 mg PROTAMINE given in lab by Anesthesia, HAT BODY INSPECTOR via Peripheral IV. Ordered by Miguel Yeung. Reason: As per physicians verbal order. Medication (Drip) Medication Time Given Dosage/Unit Concentration/Unit Diluent (ml) Solution HEPARIN DRIP 10/23/2017 8:34:52 AM 1000 units/hr 29238 units 250 D5W 1000 units/hr HEPARIN DRIP given in lab by Anesthesia, HAT BODY INSPECTOR via Peripheral IV. Pump/Drip Flow = 10 ml /hr [place] [address] units in 250 ml. Ordered by Miguel Yenug. Reason: As per physicians verbal order. ISUPREL 10/23/2017 9:18:01 AM 10 mcg/min 1 mg 250 NaCl .9 10 mcg/min ISUPREL given in lab by Anesthesia, HAT BODY INSPECTOR via Peripheral IV. Pump/Drip Flow = 150 ml/hr usi ng NaCl .9 with a concentration of 1 mg in 250 ml. Ordered by Miguel Yeung. Reason: As per physicians verbal order. LEVAQUIN 10/23/2017 8:02:05 AM 100 mL/hr 500 100 NaCl .9 100 mL/hr LEVAQUIN given in lab by Anesthesia, HAT BODY INSPECTOR via Peripheral IV. Pump/Drip Flow = 0 ml/hr using NaCl .9 with a concentration of 500 in 100 ml. Ordered by Miguel Yeung. Reason: As per physicians verbal order. Initial Case Assessment 10/23/2017 9:48:03 AM Financial #: [id number] 5 of 10 Patient Name: DAYSI MOURA Study #: [id number] Initial MD: Miguel Yeung Date of : 1940 Study Date: 10/23/2017 Initial Case Assessment Cardiovascular HR Rhythm NIBP Chest Pain 120 af 161/89 0 Edema Present Skin color Skin None Normal Warm Dry Circulatory - Right Pulses Dorsalis Pedis 1 Scale (0,1,2,3,4,d) Circulatory - Left Pulses Dorsalis Pedis 1 Scale (0,1,2,3,4,d) Circulatory - Lower Extremities Color Lower Right Color Lower Left Normal Normal Neurological State Oriented to time-place- Alert Moves all extremities person Respiration - General Respiration Rate SpO2 (%) (B/min) 20 96 10/23/2017 9:48:03 AM Financial #: [id number] 6 of 10 Patient Name: DAYSI MOURA Study #: [id number] Initial MD: Miguel Yeung Date of : 1940 Study Date: 10/23/2017 Final Case Assessment Cardiovascular HR Rhythm NIBP Chest Pain 87 sr 139/65 0 Edema Present Skin color Skin None Normal Warm Dry Circulatory - Right Pulses Dorsalis Pedis 1 Scale (0,1,2,3,4,d) Circulatory - Left Pulses Dorsalis Pedis 1 Scale (0,1,2,3,4,d) Circulatory - Lower Extremities Color Lower Right Color Lower Left Normal Normal Neurological State Alert Moves all extremities Respiration - General Respiration Rate SpO2 (%) O2 (lpm) (B/min) 16 98 4 Chronological Log Time Study Chronological Log 7:29:29 Patient arrived via Bed. 7:29:30 Patient Name, D.O.B, / Armband Verified By R.N. 7:29:30 Consent signed by the physician and the patient and verified by the Realtime Reporter staff. 7:29:31 Pre-op and post- op instructions given; patient acknowledges understanding of instructions. 7:29:32 Verbal Stimulation=2 Physical Stimulation=2 Airway=2 Respiration=2 TOTAL=8. (0=absent, 1=li mited, 2=present) 7:29:34 Patient has been NPO for More than 6Hrs. 7:29:35 Skin Breakdown- none per pt 7:29:37 Patient Warmer Placed on the Table. 7:29:54 Disposable Defibrillator Pads Placed On Patient. 10/23/2017 9:48:03 AM Financial #: [id number] 7 of 10 Patient Name: DAYSI MOURA Study #: [id number] Initial MD: Miguel Yeung Date of : 1940 Study Date: 10/23/2017 7:29:54 Martha Prominences Protected 7:29:56 A # 20 IV was noted in the Hand (right). Grade = 0 0.9ns kvo 7:29:57 A # 20 IV was noted in the Antecubital (left). Grade = 0 0.9ns kvo 7:29:58 History and physical on the chart or being dictated. 7:32:33 Anesthesia at bedside. Assumes care of patient. Assessment: Initial Case, IT=271 BPM, Rhythm=af, LQEP=241/89 mmhg, Chest Pain=0, Edema=None, Co meghann=Normal, Skin = Warm, Dry Right Pulses: Andrey Ped=1 Left Pulses: Andrey Ped=1 7:37:11 Lower Right Extremities: Color=Normal Lower Left Extremities: Color=Normal Neurological: State=Alert, Ox3, CATALAN Respiration: Resp=20 B/min, SpO2=96 % 7:48:06 Table restraints applied according to hospital policy 7:48:17 Assessment: Initial Case 7:55:29 Anesthesia present for intubation. 14 Fr moran inserted w/o difficulty. Clear yellow urine obtained. 7:58:31 Bilateral groins prepped with 2% chlorhexidine, and draped after a 3 minute waiting time. 8:00:41 MD arrived. 100 mL/hr LEVAQUIN given in lab by Anesthesia, HAT BODY INSPECTOR via Peripheral IV. Pump/Drip Flow = 0 ml/hr using NaCl .9 with 8:02:05 a concentration of 500 in 100 ml. Ordered by Miguel Yeung. Reason: As per physicians verbal or bridgett. Time Out. Correct patient, procedure, procedure equipment, site and side verified with physicia n present. Time 8:03:06 concurred by MD, individual staff and HAT BODY INSPECTOR. Time Out #2 - Consents verified, patient in correct position, all results are labled and displa yed, safety precautions 8:03:29 taken, antibiotics administered. Time out concurred by MD, individual staff and HAT BODY INSPECTOR in procedu re 8:03:35 Case Start 8:03:44 Theodore in progress. 8:06:38 Theodore complete. 8:07:40 20 mL 1% XYLOCAINE given in lab by Miguel Yeung in Left Groin via Subcutaneous. 8:08:20 Vascular access was obtained in the Fem Vein (left). 8:08:44 Vascular access was obtained in the Fem Vein (left). 8:08:48 Vascular access was obtained in the Fem Vein (left). 8:08:53 Vascular access was obtained in the Fem Art (left). A SHEATH, FR5.5 PRELUDE 11CM FR 5 was advanced into the Fem Art (left) using the Modified Seldi nger technique. 8:09:09 0.9ns pressure bag connected. 8:11:21 A SHEATH, EPS, FR6 FAST CATH FR 6 was advanced into the Fem Vein (left) using the Modified Seldinger technique. 8:11:31 A SHEATH, EPS, FR7 FAST CATH FR 7 was advanced into the Fem Vein (left) using the Modified Seldinger technique. 8:11:34 A SHEATH, FR10 ANSON 11CM FR 10 was advanced into the Fem Vein (left) using the Modified S eldinger technique. 8:15:00 20 mL 1% XYLOCAINE given in lab by Miguel Yeung in Right Groin via Subcutaneous. 8:15:29 Vascular access was obtained in the Fem Vein (right). 8:15:35 A SHEATH, EPS, FR8 FAST CATH FR 8 was advanced into the Fem Vein (right) using the Modified Seldinger technique. A CATHETER, JSN, QUAD FR 5 was advanced vis Fem Vein (left) and placed in the CS. Placement was visually 8:17:27 confirmed under fluoroscopy. A CATHETER, JSN, QUAD FR 5 was advanced vis Fem Vein (left) and placed in the HIS. Placement wa s visually 8:18:00 confirmed under fluoroscopy. 10/23/2017 9:48:03 AM Financial #: [id number] Patient Name: DAYSI MOURA Study #: [id number] Initial MD: Miguel Yeung Date of : 1940 Study Date: 10/23/2017 8:18:29 CATHETER, ACUNAV FR10 ICE (World Wide Packets) FR 10 Was Postioned. A SHEATH, FR8.5 STEERABLE SM 71CM 71CM was exchanged in the Fem Vein (right). This was necessar y in order for 8:19:01 catheter support. 8:20:17 [place] [address] units HEPARIN given in lab by Anesthesia, HAT BODY INSPECTOR via Peripheral IV. Ordered by Arron Yeung. Reason: As per 8:20:45 physicians verbal order. 8:23:41 A eps was advanced to the right atrium and passed through the septal wall to the left atriu m. 8:23:45 [place] out A CATHETER, FR7 OPTIMA SPIRAL FR7 was advanced vis Fem Vein (right) and placed in the LA. Place ment was 8:24:57 visually confirmed under fluoroscopy. Mapping in progress 8:31:08 Activated Clotting Time Drawn 8:31:13 Mapping complete. Catheter was removed A CATHETER, TACTICATH ABLAT 65 was advanced vis Fem Vein (right) and placed in the LA. Placemen t was visually 8:31:22 confirmed under fluoroscopy. 8:34:27 ACT (Normal Range 90-180) = 299 3000 units HEPARIN given in lab by Anesthesia, HAT BODY INSPECTOR via Peripheral IV. Ordered by Miguel Yeung . Reason: As per 8:34:42 physicians verbal order. 1000 units/hr HEPARIN DRIP given in lab by Anesthesia, HAT BODY INSPECTOR via Peripheral IV. Pump/Drip Flow = 10 ml/hr using 8:34:52 D5[place] [address] units in 250 ml. Ordered by Miguel Yeung. Reason: As per phelza sicians verbal order. 8:36:54 RF Ablation of the LT. ATRIUM with a CATHETER, TACTICATH ABLAT 65. 8:40:49 Activated Clotting Time Drawn 8:48:26 ACT (Normal Range 90-180) = 341 9:13:02 ECG rhythm of AF noted. Patient cardioverted at 200 joules. Success synch 9:17:42 Activated Clotting Time Drawn 10 mcg/min ISUPREL given in lab by Anesthesia, HAT BODY INSPECTOR via Peripheral IV. Pump/Drip Flow = 150 ml/ hr using NaCl .9 9:18:01 with a concentration of 1 mg in 250 ml. Ordered by Miguel Yeung. Reason: As per physicians marcello bal order. 9:22:13 ACT (Normal Range 90-180) = 332 9:28:56 Isuprel and Heparin off 9:29:27 All catheter(s) removed without difficulty A SHEATH, FR9 ANSON 11CM FR 9 was exchanged in the Fem Vein (right). This was necessary in ord er to minimize 9:32:09 site leakage. 9:32:34 PACU called. Spoke to Colby. 9:33:03 Bedside Report will be given. 40 mg PROTAMINE given in lab by Anesthesia, HAT BODY INSPECTOR via Peripheral IV. Ordered by Miguel Yeung. R lauren: As per 9:35:25 physicians verbal order. 9:36:46 Sheath(s) left in place, secured, 0.9ns kvo connected and will be removed in Holding Area 9:37:33 Case End (Physician broke scrub) 9:38:03 Sterile dressings applied to sites 9:38:08 No case complications noted. 9:38:22 Defibrillator and ground pads removed. Skin intact. 9:40:56 Ablation procedure performed: AFIB. 9:41:01 EP Procedure was performed. 10/23/2017 9:48:03 AM Financial #: [id number] 9 10 Patient Name: DAYSI MOURA Study #: [id number] Initial MD: Miguel Yeung Date of : 1940 Study Date: 10/23/2017 Assessment: Final Case, HR=87 BPM, Rhythm=sr, IGPY=024/65 mmhg, Chest Pain=0, Edema=None, [place] r=Normal, Skin = Warm, Dry Right Pulses: Andrey Ped=1 Left Pulses: Andrey Ped=1 9:41:36 Lower Right Extremities: Color=Normal Lower Left Extremities: Color=Normal Neurological: State=Alert, CATALAN Respiration: Resp=16 B/min, SpO2=98 %, O2=4 lpm 9:45:21 Activated Clotting Time Drawn 9:47:35 ACT (Normal Range 90-180) = 153 9:51:37 Patient moved to stretcher End Study - Contrast Media Used In Study Contrast Total Opened (mL) Total Used (mL) Total Wasted (mL) Unspecified 0 0 0 End Study - Maximum Contrast Load Max Contrast Load (mL) 273.6 End Study - Radiation Exposure Fluoro Time (minutes) 3.9 End Study - Patient Disposition Complications Transferred To Interventional Outcome No Telemetry Bed successful 10/23/2017 9:48:03 AM Financial #: [id number]
[2017-10-23] MEDS ORDERED: SODIUM CHLOR 0.9% 250 ML INJ 250 ML IV PRN ×2 (09:45→17:30)
[2017-10-23] MEDS: FOLIC ACID 1 MG TAB PO SCH (09:45)
[2017-10-23] MEDS ORDERED: LIDOCAINE HCL 1% 50 ML VIAL INFIL PRN ×2 (09:45→17:30)
[2017-10-23] MEDS ORDERED: ALBUTEROL SULFATE 90 MCG/ACT HFA 8 GM INHALER INH PRN (09:45)
[2017-10-23] MEDS ORDERED: ONDANSETRON ODT 4 MG TAB PO PRN (09:45)
[2017-10-23] MEDS ORDERED: LORazepam 2 MG/ML VIAL IV PUSH PRN ×2 (09:45→17:30)
[2017-10-23] MEDS ORDERED: BACITRACIN OINT 0.9 GM PKT TOP ONE ×2 (09:45→17:30)
[2017-10-23] MEDS ORDERED: ATROPINE SULFATE 1 MG/ML VIAL IV PUSH PRN ×2 (09:45→17:30)
[2017-10-23] MEDS ORDERED: oxyCODONE/ACETAMINOPHEN 5 MG/325 MG TAB PO PRN ×4 (09:45→17:30)
[2017-10-23] MEDS ORDERED: AMIODARONE 200 MG TAB PO SCH (09:45)
--- NOTE | 2017-10-23 09:56 | PD.CARD ---
Atrial Fibrillation Ablation PROCEDURE DATE: Oct 23, 2017 PROCEDURES PERFORMED: 1. Electrophysiology study on Isuprel infusion 2. CS cannulation 3. 3-D mapping 4. Transseptal approach 5. Right and left heart catheterization 6. Intracardiac echo 7. Radiofrequency ablation of atrial fibrillation 8. Pulmonary vein isolation 9. Posterior wall ablation 10. Mitral valve isolation 11. Mitral line creation 12. Left atrial tachycardia ablation 13. Roof line creation 14. Floor line creation 15. Anterior and posterior ablation 16. Left atrial appendage isolation 17. Cardioversion INDICATIONS FOR THE PROCEDURE Mr. Vergara is a 77-year-old male with hx of atrial fibrillation, very symptomatic, heart rate difficult to control, on anticoagulation referred for electrophysiology study and ablation. The risks, the nature and the benefits of the procedure were clearly stated to him. The risks include pneumothorax, cardiac perforation, stroke, need for open heart surgery and even . The patient understood and agreed to proceed. DESCRIPTION OF THE PROCEDURE IN DETAIL As written informed consent was obtained prior to esophageal echocardiogram, the patient was kept on the table where he was prepped and draped in the usual sterile fashion. Conscious sedation was initiated and maintained throughout the procedure by the anesthesiologist. Once sedation was verified, the right and left inguinal areas were anesthetized with 2% Xylocaine. Using modified Seldinger technique, the left femoral vein was cannulated on three occasions, three guidewires were advanced. Over the wire a 6, 7 and a 10-Swiss Hemaquet were advanced. Then the left femoral artery was cannulated on one occasion, one guidewire was advanced. Over the wire a 4-Swiss Hemaquet was advanced. Then the right femoral vein was cannulated on one occasion, one guidewire was advanced. Over the wire a 8-Swiss Hemaquet was advanced. Then under fluoroscopic guidance through the 6 and 7-Swiss Hemaquet, two 5-Swiss Jose curved quadripolar electrophysiology catheters were advanced and placed around the His as well as coronary sinus. Basic interval was measured. The patient was in atrial fibrillation. Through the 10-Swiss Hemaquet, a Cordis Engle AcuNav intracardiac echo catheter was advanced and placed at the right atrium. Multiple view was obtained. There was no pericardial effusion, pulmonary vein was seen, atrial septal was visualized. Then the 8-Swiss Hemaquet in the right femoral vein was exchanged for Agilis transseptal sheath that was placed all the way to the superior vena cava. Through the sheath a Karina needle was advanced, then the sheath, the dilator and the needle were progressed until foci engaged. Once engaged, the needle was advanced. RF was delivered for 2 seconds. I was able to cross into the left atrium. Once the needle crossed, the dilator was advanced. Once the dilator crossed, the sheath was advanced. Once the sheath crossed, the dilator and the needle were removed. At this point I did flushed the system and fluid movement was seen in the left atrium that indicates the sheath is in good position. The patient already received 8,000 units of heparin. The goal is to keep an ACT around 350 during ablation. Then through the sheath a [place] 20 pulse circumferential catheter was advanced. Using [place] endocardial solution mapping system, a two- dimensional configuration of the left atrium was obtained. Points were taken at the left superior and inferior veins, right superior and inferior veins, mitral valve, and appendages. Then through the sheath a [place]. [place] TactiCath 65cm 3.5mm irrigated tipped mapping and radiofrequency ablation catheter was advanced. Esophageal probe was placed temperature monitoring during ablation. When it increased to 0.5 degrees Celsius above baseline, I moved to a different area of the atrium. First I did isolate the left superior and inferior vein. I did make a big [place] around the veins. Posterior was ablated. Then a roof line was created, a floor line was created, a mitral line was isolated, then the mitral valve was isolated. Left atrial appendage was isolated. At that point the patient was in left atrial tachycardia. I did create a line from the floor to the roof area, passing by the left atrial appendage. Then the right superior and inferior veins were isolated. I did remap the atrium. There is no significant signal in the atrium. At this point I decided to proceed with cardioversion. A 200 sync biphasic joule was delivered that converted the patient into sinus rhythm. At that point I did advance the circumferential catheter again into the vein. There was no signal into the vein, pacing from the vein showed no conduction to the atrium. Isuprel infusion was initiated at 10 mcg for over 10 minutes. No tachyarrhythmia was induced, post Isuprel no tachyarrhythmia was induced. At that point the procedure was complete. All catheters were removed, atrial septal sheath was exchanged for 9-Swiss Hemaquet, intracardiac echo showed no pericardial effusion. There is still good flow in the pulmonary vein. The patient is going to be transferred to the recovery room. No incident report. The patient tolerated the procedure. Blood loss was minimal. FINDINGS 1. Electrocardiogram: At baseline the patient was in atrial fibrillation, post procedure the patient was in sinus rhythm. 2. Basic interval: Base cycle length was around 460ms. Post ablation she was around 980 milliseconds. AH at 96 and HV at 56 milliseconds. 3. Tachyarrhythmia: Atrial fibrillation was mapped and ablated. Atrial tachycardia was ablated. The ablation was successful. CONCLUSION Successful electrophysiology study, mapping, radiofrequency ablation of atrial fibrillation, left atrial tachycardia, pulmonary vein isolation, posterior ablation, mitral valve isolation, mitral line creation, roof line creation, floor line creation, left atrial tachycardia, and cardioversion. COMMENTS AND RECOMMENDATIONS The patient is going to be transferred to the telemetry unit. Will be observed and when stable can be discharged home. There is no more significant signal in the left atrium. If back in atrial fibrillation, medical management will be the best approach. EF low. Echo need to be repeated in 2 months. Miguel Yeung MD Oct 23, 2017 09:56
[2017-10-23] MEDS ORDERED: DO NOT ADM ANY ANTICOAGULANT DRUGS PRN (10:01)
[2017-10-23] MEDS: SPIRONOLACTONE 25 MG TAB PO SCH (11:00)
[2017-10-23] MEDS: METOPROLOL SUCCINATE 50 MG EXTENDED RELEASE TAB PO SCH (11:00)
[2017-10-23] MEDS: ALLOPURINOL 100 MG TAB PO SCH (11:00)
[2017-10-23] MEDS: FERROUS SULFATE 325 MG (65 MG ELEMENTAL IRON) TAB PO SCH ×2 (13:25→18:17)
[2017-10-23] MEDS ORDERED: WARFARIN SOD 5 MG TAB PO SCH (16:00)
--- NOTE | 2017-10-23 16:14 | EKG ---
Date Performed: 10/23/2017 Time Performed: 10:42:25 PTAGE: 77 years EKG: Sinus rhythm WITH FIRST DEGREE AV BLOCK MODERATE INTRAVENTRICULAR CONDUCTION DELAY MODERATE T-WAVE ABNORMALITY, C ONSIDER INFERIOR ISCHEMIA ABNORMAL ECG Compared to PREVIOUS TRACING , patient is now in a sinus rhythm. Previously was in atrial fibrillatio n. PREVIOUS TRACIN05/20/2017 17.04 DOCTOR: Grayson Mendieta Interpretating Date/Time 10/23/2017 16:14:01
--- NOTE | 2017-10-23 16:14 | EKG ---
Date Performed: 10/23/2017 Time Performed: 07:18:34 PTAGE: 77 years EKG: Atrial fibrillation with rapid ventricular response. Leftward axis Incomplete LBBB Poor R w ave progression - probable normal variant Lateral T wave changes are nonspecific Abnormal ECG Since PREVIOUS TRACING , no significant change noted PREVIOUS TRACIN05/20/2017 17.04.43 DOCTOR: Grayson Mendieta Interpretating Date/Time 10/23/2017 16:13:30
[2017-10-23] MEDS ORDERED: ONDANSETRON HCL 4 MG/2 ML VIAL IV PUSH PRN (17:30)
[2017-10-23] MEDS ORDERED: WARFARIN SOD 1 MG TAB PO ONE (17:45)
[2017-10-23] MEDS ORDERED: TAMSULOSIN HCL 0.4 MG CAP PO SCH (21:00)
[2017-10-24] VITALS (9 sets, daily range): BP systolic 135–148; BP diastolic 69–83; PULSE 70–83; RESP 18–22; TEMP 97.7–98.4; O2SAT 94–96
[2017-10-24 05:30] LABS: INTERNATIONAL NORMALIZED RATIO 1.9 RATIO; PROTHROMBIN TIME - PATIENT 19.4 SEC (9.8-11.6)
[2017-10-24] MEDS ORDERED: FUROSEMIDE 20 MG TAB PO SCH (09:00)
[2017-10-24] MEDS: SPIRONOLACTONE 25 MG TAB PO SCH (09:47)
[2017-10-24] MEDS: FERROUS SULFATE 325 MG (65 MG ELEMENTAL IRON) TAB PO SCH (09:47)
[2017-10-24] MEDS: METOPROLOL SUCCINATE 50 MG EXTENDED RELEASE TAB PO SCH (09:47)
[2017-10-24] MEDS: ALLOPURINOL 100 MG TAB PO SCH (09:47)
[2017-10-24] MEDS: FOLIC ACID 1 MG TAB PO SCH (09:47)
--- NOTE | 2017-10-24 14:52 | EKG ---
Date Performed: 10/24/2017 Time Performed: 04:46:10 PTAGE: 77 years EKG: Sinus rhythm Leftward axis INTRAVENTRICULAR CONDUCTION DELAY Abnormal ECG PREVIOUS TRACING : 10/23/2017 10.42 Since the previous tracing, no significant change noted DOCTOR: Stephon Frias Interpretating Date/Time 10/24/2017 14:50:30
[2017-10-24] MEDS ORDERED: WARFARIN SOD 1 MG TAB PO SCH (16:00)
[2017-10-24] MEDS ORDERED: WARFARIN SOD 5 MG TAB PO SCH (16:00)
--- NOTE | 2017-10-24 17:23 | PD.CARD.PN ---
Subjective Subjective Remarks No events overnight Sinus rhythm on telemetry Objective Vital Signs / I&O Vital Signs Date Time Temp Pulse Resp B/P (MAP) Pulse Ox O2 Delivery O2 Flow Rate FiO2 10/24/17 13:16 97.7 70 20 148/83 (104) 94 10/24/17 09:43 Room Air 10/24/17 09:18 98.1 82 22 146/78 (100) 95 10/24/17 06:00 79 10/24/17 05:00 77 10/24/17 04:00 98.2 75 18 140/69 (92) 96 10/24/17 04:00 75 10/24/17 03:00 74 10/24/17 02:00 76 10/24/17 01:00 81 10/24/17 00:00 98.4 83 20 135/72 (93) 94 10/24/17 00:00 83 10/23/17 23:35 Room Air 10/23/17 23:00 77 10/23/17 22:00 80 10/23/17 21:00 79 10/23/17 20:00 85 10/23/17 20:00 98.6 85 20 149/81 (103) 97 10/23/17 18:00 76 I/O 10/23/17 10/23/17 10/23/17 10/24/17 10/24/17 10/24/17 07:00 15:00 23:00 07:00 15:00 23:00 Intake Total 240 ml 1100 ml 480 ml Output Total 450 ml 600 ml Balance -210 ml 1100 ml -120 ml Intake Oral 240 ml 500 ml 480 ml IV Total 600 ml Output Urine Total 450 ml 600 ml # Bowel Movements 2 Physical Exam GENERAL: NAD, AAOx3 SKIN: Warm and dry. HEAD: Atraumatic. Normocephalic. EYES: Pupils equal and round. No scleral icterus. No injection or drainage. ENT: No nasal bleeding or discharge. Mucous membranes pink and moist. NECK: Trachea midline. No JVD. CARDIOVASCULAR: Regular rate and rhythm. RESPIRATORY: No accessory muscle use. Clear to auscultation. Breath sounds equal bilaterally. GASTROINTESTINAL: Abdomen soft, non-tender, nondistended. Hepatic and splenic margins not palpable. MUSCULOSKELETAL: Extremities without clubbing, cyanosis, or edema. No obvious deformities. Bilateral groins with no hematomas, distal pulses intact NEUROLOGICAL: Awake and alert. No obvious cranial nerve deficits. Motor grossly within normal limits. Five out of 5 muscle strength in the arms and legs. Normal speech. PSYCHIATRIC: Appropriate mood and affect; insight and judgment normal. Laboratory Laboratory Tests Test 10/24/17 04:55 Prothrombin Time 19.4 SEC Prothromb Time International Ratio 1.9 RATIO Activated Partial Thromboplast Time 36.7 SEC Assessment and Plan Problem List: (1) S/P ablation of atrial fibrillation ICD Codes: Z98.890 - Other specified postprocedural states; Z86.79 - Personal history of other diseases of the circulatory system (2) Atrial fibrillation, chronic ICD Codes: I48.2 - Chronic atrial fibrillation Status: Chronic Assessment and Plan 1) Afib s/p ablation 2) Plan to repeat echo in a few months per Dr. Yeung 3) Cardiovascularly stable for discharge 4) Follow up with Frank Nelson DO Oct 24, 2017 17:23
[2017-10-28] MEDS ORDERED: AMIODARONE 200 MG TAB PO SCH (09:00)
== END 2017-10-24 15:49 | disposition home or self-care (01) ==
LOC: HDIC 05:54 → HDOC 05:54 → HCIS 14:32 → HDOC 10-24 15:49
PROVIDERS: ATTEND Internal Medicine Interventional Cardiology
DX: I48.2 Chronic atrial fibrillation (principal); I47.1 Supraventricular tachycardia; I11.0 Hypertensive heart disease with heart failure; I50.9 Heart failure, unspecified; I25.10 Atherosclerotic heart disease of native coronary artery without angina pectoris; Z79.01 Long term (current) use of anticoagulants; Z95.1 Presence of aortocoronary bypass graft
CPT/HCPCS: 00537; 80048; 85002; 85025; 85610; 85730; 86850; 86900; 86901; 92960; 93005; 93613; 93623; 93656; 93662; C1730; C1731; C1732; C1759; C1766; C2630; J1644; J1956; J2250; J2720; J3010; J7040

== ENCOUNTER 2017-11-10 09:06 | Day surgery (SDC) | payer MEDICARE ==
[~2017-11-10 09:06] MED LIST changes: -COUM2.5T PO; +COUM5TAB PO; -DIGO0.12 PO; -DILT90TA PO; +DOCU50CA5 PO; -FAMO20TA2 PO; +FERR325T18 PO; +FOLI1TAB6 PO; +METO1TAB43 PO; -METO1TAB9 PO; +NITR1SUB3 SL; -ZOCO40TA PO
[2017-11-10] MEDS ORDERED: POVIDONE IODINE 5% (ANTISEPSIS KIT) 4 APPLICATIONS EACH NARE PRN (09:45)
[2017-11-10] MEDS ORDERED: LACTATED RINGER'S 1000 ML IV PRN (09:45)
[2017-11-10] MEDS ORDERED: SODIUM CHLORID 0.9% 500 ML IV PRN (09:45)
[2017-11-10] MEDS ORDERED: CHLORHEXIDINE GLUCONATE 2 % 1 PACK (2 CLOTHS) TOPICAL PRN (09:45)
[2017-11-10] MEDS ORDERED: METOPROLOL TARTRATE 25 MG TAB PO PRN (09:45)
[2017-11-10] MEDS ORDERED: AMIO200T PO (10:04)
--- NOTE | 2017-11-10 11:43 | MR ---
cc: Miguel Yeung MD DATE: 11/10/2017 PROCEDURE PERFORMED: Cardioversion. INDICATION: Mr. Vergara is a 77-year-old gentleman with atrial fibrillation, left atrial tachycardia, to undergo cardioversion. The risks, the nature and the benefits of the procedure are clearly stated to him. Risks include cardiac arrest, need for endotracheal intubation, need for pacing and even . The patient understood and agreed to proceed. DESCRIPTION OF PROCEDURE: After written informed consent was obtained, the patient was brought to the DOC unit where he was prepped and evaluated by anesthesiologist. Once sedation was verified, anterolateral pads were placed. 200 sync biphasic joules were delivered that converted the patient into sinus rhythm. No incident reported. The patient tolerated the procedure. CONCLUSION: Successful cardioversion. COMMENT AND RECOMMENDATION: The patient is going to be observed and discharged home later today. Miguel Yeung MD HS/TL , 11:24 AM , 11:41 AM
[2017-11-10] MEDS ORDERED: PROPOFOL 200 MG/20 ML AMP IV ONE (12:00)
[2017-11-10] MEDS ORDERED: LIDOCAINE HCL 1% PF 5 ML SYRINGE OTHER ONE (12:00)
--- NOTE | 2017-11-10 13:21 | EKG ---
Date Performed: 11/10/2017 Time Performed: 09:28:32 PTAGE: 77 years EKG: Unclear supraventricular tachycardia Possible right atrial abnormality Leftward axis IV con duction defect Lateral ST-T changes are nonspecific Abnormal ECG Compared to prior electrocardiogram, Rate has increased and nonspecific ST T-wave changes are more marked. PREVIOUS TRACING : 10/24/2017 04.46 DOCTOR: Abdirashid Martinez Interpretating Date/Time 11/10/2017 13:20:08
--- NOTE | 2017-11-11 21:47 | EKG ---
Date Performed: 11/10/2017 Time Performed: 11:43:42 PTAGE: 77 years EKG: Sinus bradycardia with 1st degree A-V block. Leftward axis IV conduction defect Anterolater al ST-T changes are nonspecific Abnormal ECG PREVIOUS TRACING : 11/10/2017 09.28 Compared to previous tracing, a fib no longer present DOCTOR: Gio Arrington Interpretating Date/Time 11/11/2017 21:46:03
== END 2017-11-10 13:00 | disposition home or self-care (01) ==
LOC: HDOC 09:06 → HDIC 09:07 → HDOC 13:00
PROVIDERS: ATTEND Internal Medicine Interventional Cardiology
DX: I48.91 Unspecified atrial fibrillation (principal); I47.1 Supraventricular tachycardia; I10 Essential (primary) hypertension; Z79.01 Long term (current) use of anticoagulants
CPT/HCPCS: 92960; 93005